=== PATIENT | male | born 1950 | race Caucasian/White ===

== ENCOUNTER 2024-06-06 06:02 | Day surgery (SDC) | payer MEDICARE, SELFPAY ==
[2024-06-06] VITALS (18 sets, daily range): BP systolic 112–164; BP diastolic 69–99; BMI 28.4
[2024-06-06 06:53] LABS: Hematocrit 39.8 % (39.0-52.0); Hemoglobin 14.1 g/dL (13.0-18.0); Mean Corp Hgb Conc. 35.4 g/dL (33.0-37.0); Mean Corpuscular Hgb 33.3 pg (27.0-31.0); Mean Corpuscular Volume 93.9 fL (80.0-94.0); Mean Platelet Volume 9.2 fL (7.4-10.4); Platelet Count 271 10^3/uL (130-400); Red Blood Cell Count 4.24 10^6/uL (4.70-6.10); Red Cell Dist. Width 13.2 % (11.5-14.5); White Blood Cell Count 5.6 10^3/uL (4.8-10.8)
[2024-06-06 06:58] LABS: Glucose - Point of Care 182 mg/dl (70-99)
[2024-06-06 07:09] LABS: ALT (SGPT) < 10 U/L (0-50); AST (SGOT) 23 U/L (17-59); Albumin 3.9 g/dl (3.5-5.0); Alkaline Phosphatase 100 U/L (38-126); Blood Urea Nitrogen 13 mg/dl (9-20); Calcium 9.9 mg/dl (8.4-10.2); Carbon Dioxide 28 mmol/L (22-30); Chloride 107 mmol/L (98-107); Estimated Creatinine Clearance 93 ml/min; Glucose 176 mg/dl (70-99); Potassium 4.8 mmol/L (3.5-5.1); Sodium 141 mmol/L (135-145); Total Bilirubin 0.6 mg/dl (0.2-1.3); Total Protein 6.3 g/dl (6.3-8.2); eGFR > 60.00
[2024-06-06] MEDS: LOW STRENGTH ASPIRIN 324 MG PO (07:23)
[2024-06-06] MEDS: PLAVIX 75 MG PO (07:23)
--- NOTE | 2024-06-06 08:54 | CONSULT.STRU ---
Consultation
-
Date/Time Consultation Requested: 07/07/2024
Date/Time Consultation Performed: 07/07/2024
Requesting Provider: Thai Cohn MD
Performing Provider: ABRAN King
Reason for Consultation: /TAVR
Patient History
Physicians
Family Physician: Shital Rogers DO
Outpatient Silica Spray Mixer: Reddy Lopes MD
Primary Silica Spray Mixer: Reddy Lopes MD
History of Present Illness
Mr. Donis is a pleasant 74 yom that has a complex past medical history significant for , Diabetes, CVA, HTN, SDH, PAD, Parkinson disease, hyperlipidemia, and COPD. He resides at [facility] in [place] and uses a walker for ambulation.
His sister Klarissa is his primary point of contact Mr. Donis was scheduled for a rhizotomy and needed cardiac clearance from his acute care clinical nurse specialist. Due to his associated with worsened symptoms, he did not receive cardiac clearance and was referred
for a cardiac catheterization in preparation for possible TAVR. His echocardiogram from 05/11/2024 is notable for EF 60-65%, AV P/M 77/49, JULES 0.84, DI 0.28. pk Tutu. 4.38, Severe MAC, mild MS (MG 4), trivial TR. His cardiac catheterization from today
(06/06) demonstrated no obstructive CAD. From a symptomatology standpoint, he describes an increase in ARCE and LE edema. Discussed the pathophysiology and treatment options of including SAVR and TAVR. Explained the evaluation process comprising of
repeat lab work, CT scan, CT surgical consult, dental clearance, and a heart team discussion. TAVR booklet, prescriptions, appointments, and contact information given to patient and his sister Klarissa. Allowed for and answered questions at bedside.
Past Medical History
Past Medical History: COPD, CVA/TIA, GERD, HTN, Hypothyroidism, NIDDM, Psychiatric (bipolar), Valvular Disease (aortic stenosis, mitral stenosis, mac) and Other (TBH, SDH, PAD, neuropathy, Parkinson disease, aorto-iliac atherosclerosis,
claudication, sleep apnea, SIRS, anemia, former tobacco abuse)
Past Surgical History
Past Surgical History: Cholecystectomy, Orthopedic (knee and shoulder surgery) and Other (craniotomy, cataract)
Dental History
edentulous-- Will not need dental clearance.
Family History
Father: Cause of (heart disease)
Social History
Alcohol: None
Drug: None
Tobacco: Former Smoker
Personal: Single
Living: Assisted Living
Allergies
Allergy/AdvReac Type Severity Reaction Status Date / Time
dulaglutide Allergy Unknown Verified 06/06/24 07:02
haloperidol [From Haldol] Allergy Unknown Verified 06/06/24 07:02
metformin Allergy Unknown Verified 06/06/24 07:02
tiotropium Allergy Unknown Verified 06/06/24 07:02
[From Spiriva with
HandiHaler]
Home Medications
�Medication �Instructions �Recorded �Confirmed �Type
Apap 325 mg PO Q6H PRN pain 06/06/24 06/06/24 History
Milk of Magnesia 30 ml PO DAILY PRN constipation 06/06/24 06/06/24 History
albuterol sulfate 2.5 mg/3 mL 2.5 mg inhalation Q6H PRN sob 06/06/24 06/06/24 History
(0.083 %) solution for nebulization
arformoterol 15 mcg/2 mL solution 2 ml inhalation BID PRN sob 06/06/24 06/06/24 History
for nebulization
artificial tears solution eye drops 1 drp ophthalmic (eye) Q4H PRN dry 06/06/24 06/06/24 History
eyes
atorvastatin 40 mg tablet 40 mg PO QPM 06/06/24 06/06/24 History
benzonatate 100 mg capsule 100 mg PO TID PRN cough 06/06/24 06/06/24 History
blood-glucose sensor (Dexcom G7 06/06/24 06/06/24 History
Sensor device)
budesonide 0.5 mg/2 mL suspension 0.5 mg inhalation BID 06/06/24 06/06/24 History
for nebulization
carbidopa 25 mg-levodopa 100 mg 3 tab PO TID 06/06/24 06/06/24 History
tablet
carbidopa ER 50 mg-levodopa 200 mg 2 tab PO HS 06/06/24 06/06/24 History
tablet,extended release
cholecalciferol (vitamin D3) 10 10 mcg PO DAILY 06/06/24 06/06/24 History
mcg (400 unit) capsule (Vitamin D3)
clopidogrel 75 mg tablet 75 mg PO DAILY 06/06/24 06/06/24 History
insulin lispro 100 unit/mL 5 unit SC DAILY 06/06/24 06/06/24 History
subcutaneous pen
insulin lispro 100 unit/mL 6 unit SC DAILY 06/06/24 06/06/24 History
subcutaneous pen
lidocaine HCl 2 % mucosal solution 1 applic mucous membrane QID PRN 06/06/24 06/06/24 History
(Lidocaine Viscous) penis pain
magnesium oxide 400 mg (241.3 mg 400 mg PO BID 06/06/24 06/06/24 History
magnesium) tablet
meoslksn-vxa-xsxlo acid 0.4 1 tab PO DAILY 06/06/24 06/06/24 History
mg-lycopene 300 mcg-lutein 250 mcg
tablet (Cerovite Senior)
pantoprazole 40 mg tablet,delayed 40 mg PO DAILY 06/06/24 06/06/24 History
release
primidone 250 mg tablet 500 mg PO HS 06/06/24 06/06/24 History
tizanidine 2 mg tablet 6 mg PO HS 06/06/24 06/06/24 History
tramadol 50 mg tablet 50 mg PO DAILY PRN pain 06/06/24 06/06/24 History
STS%
STS %: 1.29
Review of Systems
-
History Source: Patient and Family (sister Klarissa)
General: Reports Fatigue
HEENT: Reports No Symptoms
Respiratory: Reports ARCE
Cardiac: Reports No Symptoms
Abdomen/GI: Reports No Symptoms
: Reports No Symptoms
Musculoskeletal: Reports Joint Pain and Edema
Skin: Reports No Symptoms
Neurological: Reports CVA, TIA and Dizzy
Vascular: Reports Claudication
Physical Exam
Vital Signs
Pulse 65 06/06/24 07:30
Resp Rate 18 06/06/24 06:51
Blood pressure 112/75 06/06/24 06:51
Blood pressure extremity used: Left upper arm 06/06/24 06:51
Position: Sitting 06/06/24 06:51
MAP (cuff-Brannon Monitor) 87 06/06/24 06:35
SaO2 98 06/06/24 07:30
Oxygen Mode of Delivery Room air 06/06/24 06:51
Can the patient verbally communicate their pain? Yes 06/06/24 06:51
Pain scale ratin 06/06/24 06:51
Actual Weight 87.08 kg 06/06/24 06:50
Body Mass Index (BMI) 28.4 06/06/24 06:50
Labs
06/06/24 06:43
06/06/24 06:43
Diagnostic Studies
ECHOCARIOGRAM 05/06/2024
SUMMARY
1. Left ventricular ejection fraction, by visual estimation, is 60 to 65%.
2. Concentric remodeling of the left ventricle.
3. Indeterminate LV diastolic function.
4. The left atrium is normal in by volume index 22.1 mL/m2.
5. Normal right ventricular size and systolic function.
6. Normal right atrium by area 12.9 cm2.
7. Aortic valve is tricuspid and calcified. Severe aortic valve stenosis.
8. AoV velocity of 4.38 m/s; Peak aortic valve gradient = 76.9 mmHg; Mean gradient = 48.5 mmHg; AoV Area by continuity equation = 0.84 cm2; AoV Dimensionless Index = 0.28.
9. There is moderate thickening of the anterior and posterior leaflets of the mitral valve with fixed Posterior leaflet. Severe mitral annular calcification. Turbulent Inflow consistent with calcific Mitral valve. Mild mitral stenosis Mean Gradient
4mmHg
10. Inadequate amount of tricuspid regurgitation to estimate the pulmonary systolic pressure.
11. Aortic root and ascending aorta appear normal, with no evidence of dilatation or obstruction.
12. Compared to prior study 06/2023, gradients are slightly worse.
13. Study done in Normal sinus rhythm.
14. Mild mitral valve stenosis with mean gradient of 4.8 mmHg
CARDIAC CATHETERIZATION 06/06/2024
ASSESSMENT:
1: Single-vessel nonobstructive coronary artery disease.
2: Severe aortic valvular stenosis.
3: Mildly elevated pulmonary pressures.
CONCLUSIONS and RECOMMENDATIONS:
1: Proceed with TAVR evaluation.
2: Medical therapy for nonobstructive coronary artery disease.
Procedure Type:�Isolated AVR
Perioperative Outcome Estimate %
Operative Mortality 1.29%
Morbidity & Mortality 6.47%
Stroke 1.43%
Renal Failure 0.691%
Reoperation 3.14%
Prolonged Ventilation 2.02%
Deep Sternal Wound Infection 0.042%
Long Hospital Stay (>14 days) 2.71%
Short Hospital Stay (<6 days)* 57.5%
Exam
General: Well Developed, Well Nourished and Comfortable
HEENT: Normocephalic
Neck: Trachea Midline
Respiratory: Wheezes (Scattered expiratory wheezes)
Cardiac: Regular Rhythm and Murmur (IV/ MELANI)
GI: Soft, Non Tender and Non Distended
Rectal: Deferred by Provider
Skin: Warm and Dry
Neuro: Awake, Alert, Oriented and AO x 3
Extremities: Lower Level Edema
Psych: Calm
Assessment / Plan
-
Aortic stenosis
Continue with TAVR evaluation
Trend creatinine after contrast administration (Rx given)
TAVR CT scan (06/19)
CT surgical consult (MPT 07/03)
Frailty testing and KCCQ12 at consult
Dental clearance
Continue Plavix
Heart team discussion
Data Reviewed
-
EKG: Tracing Personally Visualized and interpreted (NSR with RBBB)
Heater Planer Operator: Report Reviewed by me and Discussed with Physician
Echo: Report Reviewed by me and Discussed with Physician
Labs: Labs Reviewed by me
Old Records: Reviewed
Total Time Spent with Patient (in minutes): 45
--- NOTE | 2024-06-06 09:09 | ITS.CL.CATH ---
Bonding Machine Operator - Catheterization
Cardiac Catheterization
Procedure Report:
RIGHT AND LEFT HEART CATHETERIZATION
Date of Procedure: June 06, 2024
Primary Care Physician: Dr. Shital Rogers
Primary Phlebotomy Tech: Dr. Reddy Lopes
Procedures performed:
1: Coronary angiography
2: Left ventricular hemodynamic assessment
3: Right heart catheterization
INDICATION: The patient is a 74-year-old male with a complex past medical history including prior heavy smoking, prior stroke, prior subdural hematoma status postcraniotomy, insulin-dependent diabetes mellitus, Parkinson's disease, and chronic back
pain who presents with new increasing lower extremity edema and progressive severe aortic valvular stenosis by echocardiography. LV systolic function was normal with a mean aortic valve gradient of 49 mmHg by recent echo performed on 05/11/2024
ACCESS: The patient was prepped and draped in usual sterile fashion. A 6 Mauritian sheath was placed in the right radial artery using the Seldinger over the wire technique. A 6 Mauritian sheath was then placed in the right common femoral vein using the
same technique.
HEMODYNAMIC FINDINGS (mmHg):
RA(a,v,m): 12, 10, 9
RV(s/d,EDP): 37/6, 13
PA(s/d/m): 38/22, 28
PCWP(a,v,m): 25, 22, 19
LV(s/d,EDP): 205/14, 31
Ao(s/d,m): 161/84, 114
Oxygen Saturations (mg/dl):
PA: 67% on room air
LV: 94% on room air
Cardiac Output/Index (l/min / l/min/m2):
Estimated Yuri Method: 4.8 / 2.4
VALVE HEMODYNAMICS:
Aortic Valve
peak to peak gradient (mmHg): 44
mean gradient (mmHg): 47
valve area (cm2): 0.7
ANGIOGRAPHIC FINDINGS:
Single-plane Left Ventriculography performed in the GILMORE projection:
Coronary Angiography:
Dominance: Right
Left Main: Widely patent, very mild distal tapering.
Left Anterior Descending: The left anterior descending artery is a medium caliber vessel that gives rise to 1 major bifurcating diagonal branch. These vessels have very mild luminal irregularities with no focal obstructive disease.
Left Circumflex: The left circumflex is a medium caliber nondominant system that gives rise to 3 major obtuse marginal branches. The circumflex ostium has a smooth 40 to 50% stenosis. The remainder of the distal vessels have only nonobstructive
mild luminal irregularities with normal flow.
Right Coronary: The right coronary artery is a large-caliber dominant system that gives rise to a medium caliber posterior descending artery and posterior left ventricular branch system. These vessels have mild luminal irregularities with no focal
obstructive disease.
Fluoroscopy Time (min): 6.5
Radiation Dose (mGy): 360
DAP (Gy.cm2): 26
Closure device: None. A TR band was placed at the right wrist. Hemostasis was achieved with manual pressure alone in the right groin.
Complications: None
ASSESSMENT:
1: Single-vessel nonobstructive coronary artery disease.
2: Severe aortic valvular stenosis.
3: Mildly elevated pulmonary pressures.
CONCLUSIONS and RECOMMENDATIONS:
1: Proceed with TAVR evaluation.
2: Medical therapy for nonobstructive coronary artery disease.
Thai Cohn M.D.
Copy to: Dr. Shital Rogers
[2024-06-06 09:24] LABS: Glucose - Point of Care 148 mg/dl (70-99)
[2024-06-06] MEDS: SINEMET 25-100 3 TABLET PO (09:31)
[2024-06-06] MEDS: DEPAKOTE (12 HR RELEASE) 1000 MG PO (10:11)
== END 2024-06-06 13:20 | disposition home or self-care (01) ==
LOC: CATH 06:02
PROVIDERS: ATTENDING PHYSICIAN Internal Medicine Interventional Cardiology; FAMILY PHYSICIAN Family Medicine; OTHER PHYSICIAN Internal Medicine Cardiovascular Disease
DX: I25.10 Atherosclerotic heart disease of native coronary artery without angina pectoris (principal); R60.0 Localized edema; G20.A1 Parkinson's disease without dyskinesia, without mention of fluctuations; I08.3 Combined rheumatic disorders of mitral, aortic and tricuspid valves; G89.29 Other chronic pain; Z79.4 Long term (current) use of insulin; E78.5 Hyperlipidemia, unspecified; E11.51 Type 2 diabetes mellitus with diabetic peripheral angiopathy without gangrene; J44.9 Chronic obstructive pulmonary disease, unspecified; Z90.49 Acquired absence of other specified parts of digestive tract; R65.10 Systemic inflammatory response syndrome (SIRS) of non-infectious origin without acute organ dysfunction; D64.9 Anemia, unspecified; Z88.8 Allergy status to other drugs, medicaments and biological substances; K21.9 Gastro-esophageal reflux disease without esophagitis; I10 Essential (primary) hypertension; Z86.73 Personal history of transient ischemic attack (TIA), and cerebral infarction without residual deficits; Z87.891 Personal history of nicotine dependence; Z98.890 Other specified postprocedural states
CPT/HCPCS: 80053; 82962; 85027; 93460; C1894; Q9967

== ENCOUNTER → 2024-06-19 09:40 | Outpatient (REF) | payer MEDICARE, SELFPAY | LOC: RAD 09:40 | PROVIDERS: ATTENDING PHYSICIAN Nurse Practitioner Acute Care | DX: I35.0 Nonrheumatic aortic (valve) stenosis (principal) | CPT/HCPCS: 74174; 75572; Q9967 ==

== ENCOUNTER 2024-08-09 09:48 | Day surgery (SDC) | payer MEDICARE, SELFPAY ==
[2024-07-31 12:30] VITALS: BMI 29.0
[2024-07-31 13:46] LABS: Hematocrit 38.8 % (39.0-52.0); Hemoglobin 13.6 g/dL (13.0-18.0); Mean Corp Hgb Conc. 35.1 g/dL (33.0-37.0); Mean Corpuscular Hgb 32.9 pg (27.0-31.0); Mean Corpuscular Volume 93.7 fL (80.0-94.0); Mean Platelet Volume 9.6 fL (7.4-10.4); Platelet Count 157 10^3/uL (130-400); Red Blood Cell Count 4.14 10^6/uL (4.70-6.10); Red Cell Dist. Width 13.1 % (11.5-14.5); White Blood Cell Count 4.5 10^3/uL (4.8-10.8)
[2024-07-31 13:49] LABS: INR 1.07; PT 14.4 Sec (11.4-14.6)
[2024-07-31 13:50] LABS: APTT 33.9 Sec (23.4-35.0)
[2024-07-31 13:58] LABS: NT-proBNP 163 pg/ml
[2024-07-31 14:13] LABS: Glycohemoglobin (HgbA1c) 6.6 % (4.0-5.6)
[2024-07-31 14:16] LABS: Urine Albumin Negative (Neg - Trace); Urine Bilirubin Negative (Negative); Urine Character Clear (Clear); Urine Color Yellow; Urine Glucose Negative (Negative); Urine Ketone 1+ (Negative); Urine Leukocyte Negative (Negative); Urine Nitrite Negative (Negative); Urine Occult Blood Negative (Negative); Urine Urobilinogen Negative (Neg - 1+)
[2024-07-31 14:25] LABS: AST (SGOT) 17 U/L (17-59); Albumin 4.4 g/dl (3.5-5.0); Alkaline Phosphatase 53 U/L (38-126); Blood Urea Nitrogen 10 mg/dl (9-20); Calcium 9.6 mg/dl (8.4-10.2); Carbon Dioxide 27 mmol/L (22-30); Chloride 104 mmol/L (98-107); Direct Bilirubin 0.3 mg/dl (0.0-0.4); Estimated Creatinine Clearance 74 ml/min; Glucose 97 mg/dl (70-99); Potassium 4.3 mmol/L (3.5-5.1); Sodium 136 mmol/L (135-145); Total Bilirubin 0.6 mg/dl (0.2-1.3); Total Protein 6.6 g/dl (6.3-8.2); eGFR > 60.00
[2024-07-31 14:35] LABS: ALT (SGPT) < 10 U/L (0-50)
--- NOTE | 2024-07-31 14:56 | CM ---
Met with Mr. Donis and his sister in [facility]. He states prior to admission he resides alone in an apartment at [facility]. His apartment is on the first floor. He states he has been there for almost three years. He
states prior to admission he ambulates with a rollator. He has a rollator, rolling walker, wheelchair and Nebulizer at home. He has a prescription plan and the facility get his medications. He has been at [facility] and [facility] in [place]
in the past. The discharge plan is to return to [facility] with a home visit by the Transitional Care Nurse when medically stable.
We reviewed pre-op and post-op routines We reviewed the shower instructions. He has the soap, written instructions and the TAVR Educational Booklet. We also reviewed the restrictions including lifting and driving restrictions. We discussed a home
visit by the Transitional Care Nurse. He is agreeable to a home visit. The plan is for TAVR on July.
[2024-07-31 15:32] LABS: % Basophils 0.4 % (0-2); % Eosinophils 1.8 % (0-6); % Immature Granulocytes 0.4 % (0-0.5); % Lymphocytes 51.8 % (20.5-51.1); % Neutrophils 34.6 % (42.2-75.2); Absolute Eosinophils 0.1 10^3/uL (0-0.7); Absolute Lymphocytes 2.4 10^3/uL (1.2-3.4); Absolute Monocytes 0.5 10^3/uL (0.1-0.6); Absolute Neutrophils 1.6 10^3/uL (1.4-6.5); Nucleated Red Blood Cells % 0 % (-)
--- NOTE | 2024-08-09 09:50 | RR ---
A Rapid Response was called on this patient, please see Rapid Response form.
Patient arrived for TAVR procedure. Brought up to pre procedure area in wheelchair. Patient lethargic and states he does not feel well and this is not his normal self. Blood sugar checked. IV started and put on tele. Rapid called with stroke
code. Sister accompanied patient. Team arrived to bedside and agreed to CT scan. Please see further documentation.
[2024-08-09 10:09] LABS: Glucose - Point of Care 99 mg/dl (70-99)
--- NOTE | 2024-08-09 12:35 | CM ---
Chart reviewed. Patient is in the OR. Patient lives alone in an apartment at [facility]. His apartment is on the first floor. He states he has been there for almost three years. He states prior to admission he
ambulates with a rollator. He has a rollator, rolling walker, wheelchair and Nebulizer at home. He has a prescription plan and the facility gets his medications. He has been at [facility] and [facility] in [place] in the past. The discharge
plan is to return to [facility] with a home visit by the [place] Transitional Care Nurse when medically stable.
== END 2024-08-09 11:00 | disposition home or self-care (01) ==
LOC: CATH 09:48
PROVIDERS: ATTENDING PHYSICIAN Thoracic Surgery (Cardiothoracic Vascular Surgery); FAMILY PHYSICIAN Family Medicine
DX: I35.0 Nonrheumatic aortic (valve) stenosis (principal); R29.810 Facial weakness; R53.83 Other fatigue; R41.0 Disorientation, unspecified; Z53.8 Procedure and treatment not carried out for other reasons; I25.10 Atherosclerotic heart disease of native coronary artery without angina pectoris; E11.51 Type 2 diabetes mellitus with diabetic peripheral angiopathy without gangrene; I10 Essential (primary) hypertension; G20.A1 Parkinson's disease without dyskinesia, without mention of fluctuations; J44.9 Chronic obstructive pulmonary disease, unspecified; E78.5 Hyperlipidemia, unspecified; K21.9 Gastro-esophageal reflux disease without esophagitis
CPT/HCPCS: 33361; 36415; 70450; 71046; 80053; 81003; 82248; 82962; 83036; 83880; 85025; 85610; 85730; 86850; 86900; 86901; 87070; 93005

== ENCOUNTER 2024-08-10 08:51 | Inpatient (IN) | payer MEDICARE, SELFPAY ==
[2024-08-09] VITALS (12 sets, daily range): BP systolic 141–191; BP diastolic 64–124; BMI 25.9
[2024-08-09 10:40] LABS: Venous Blood Gas B.E. 4.5 mmol/L (-4 to +4); Venous Blood Gas HCO3 29.8 mmol/L (22-27); Venous Blood Gas O2 Sat % 99.6 %; Venous Blood Gas pCO2 46 mmHg (35-48); Venous Blood Gas pH 7.42 (7.32-7.43); Venous Blood Gas pO2 153 mmHg (30-50)
[2024-08-09 10:42] LABS: % Basophils 0.5 % (0-2); % Eosinophils 1.3 % (0-6); % Immature Granulocytes 0.5 % (0-0.5); % Lymphocytes 42.3 % (20.5-51.1); % Monocytes 12.6 % (1.7-9.3); % Neutrophils 42.8 % (42.2-75.2); Absolute Eosinophils 0.1 10^3/uL (0-0.7); Absolute Lymphocytes 1.7 10^3/uL (1.2-3.4); Absolute Monocytes 0.5 10^3/uL (0.1-0.6); Absolute Neutrophils 1.7 10^3/uL (1.4-6.5); Hematocrit 38.7 % (39.0-52.0); Hemoglobin 13.5 g/dL (13.0-18.0); Mean Corp Hgb Conc. 34.9 g/dL (33.0-37.0); Mean Corpuscular Hgb 33.1 pg (27.0-31.0); Mean Corpuscular Volume 94.9 fL (80.0-94.0); Mean Platelet Volume 9.4 fL (7.4-10.4); Nucleated Red Blood Cells % 0 % (-); Platelet Count 194 10^3/uL (130-400); Red Blood Cell Count 4.08 10^6/uL (4.70-6.10); Red Cell Dist. Width 13.4 % (11.5-14.5); White Blood Cell Count 3.9 10^3/uL (4.8-10.8)
--- NOTE | 2024-08-09 10:54 | ED.CVA ---
History of Present Illness
General
Chief Complaint: CVA/TIA Symptoms
Time Seen by Provider: 08/09/24 10:24
Onset of Stroke Symptoms
Onset of symptoms known: No
Time pt last seen normal is known: No
History of Present Illness
History of Present Illness:
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 Patient was picked
up by his sister around 8 AM this morning for outpatient TAVR procedure. Sister had noted that patient seemed more out of it, however noted that he did not sleep very well last night so she thought that that was the reason. When patient arrived to
[facility] for TAVR procedure, noted to be somnolent. For this reason a stroke alert was called and neurology to bedside. Patient went to CT scan and subsequently brought to the ER. Patient on arrival limited historian, following minimal commands.
No report of any fall or trauma, unknown. Patient is on Plavix, taken this morning. No additional history obtained at this time
Phy Exam
Physical Exam
Physical Exam:
General: No acute distress, somnolent
HEENT: protecting airway
Neck: appears supple
CV: Normal heart rate, regular rhythm
Resp: No accessory muscle use, no increased work of breathing, lungs clear to auscultation bilaterally
Abd: Soft and non-distended, no tenderness to palpation
Extremities: No deformities, no swelling
Neuro: Somnolent but arousable to stimuli. Pupils equal and reactive. Moving all extremities equally, however global weakness. Slurring of speech, however known TBI in the past. Able to follow simple commands
: deferred
Rectal: deferred
Psych: Normal affect
Skin: Intact
Scores
NIH Stroke Score
Level of Consciousness: 0 - Alert
LOC Questions: 2-Neither correct
LOC Commands: 0-Performs both correctly
Best Horizontal Gaze: 0-Normal
Visual Finney: 0=Normal, no visual loss
Facial Palsy: 1=Minor paralysis
Motor - Right Arm: 0=No drift 10 seconds
Motor - Left Arm: 0=No drift 10 seconds
Motor - Right Le-Drift < 5 seconds
Motor - Left Le-Drift < 5 seconds
Limb Ataxia: 0-Absent
Sensation: 0-Normal
Best Language: 0-No aphasia
Dysarthria: 1-Mild slurring
Extinction and Inattention: 0-No abnormality
NIH Total Score:: 6
Course
Orders/Labs/Results
Orders:
Orders
08/09/24
CT Head & Neck Angio W/wo IV Routine
Comment: ORDER RE-ENTERED UNDER CURRENT ACCOUNT KORY HUERTA
Reason For Exam: STENOSIS
08/09/24 Lunch
NPO
Allow oral meds: No
Allow clear liquids: No
08/09/24 10:25
Electrocardiogram (*1) Urgent
Reason for Study: TIA/Stroke
08/09/24 10:26
EKG- Treatment ONCE
08/09/24 10:33
Basic Metabolic Panel Urgent
Complete Blood Count/With Diff Urgent
Troponin I Urgent
08/09/24 10:34
Venous Blood Gas Urgent
%Oxygen/Room Air: 98
CR Chest Portable - 1 View Urgent
Comment:
Reason For Exam: AMS
Reason Study Needs to be Portable: Patient Unstable
08/09/24 10:38
Depakane Urgent
Lactic Acid Q4H
Comment: CANCEL 2nd LACTIC ACID IF 1st LACTIC ACID IS LESS THAN 2
Urinalysis Reflex To Culture Urgent
Date Specimen was Collected: 08/09/24
Time Specimen was Collected: 10:36
Urine Microscopic Reflex Cult Urgent
Blood Culture Q30M
[place] Source: Blood/Venous
Specimen Description:
Blood Culture Q30M
CORINA Source: Blood/Venous
Specimen Description:
08/09/24 11:50
DIETARY IP CONSULT Routine
Reason for Consult: Possible Aspiration on CXR, Parkinsons, TBI
Abnormal Lab Results
08/09/24 08/09/24 08/09/24
10:33 10:34 10:38
WBC 3.9 L 10^3/uL
(4.8-10.8)
RBC 4.08 L 10^6/uL
(4.70-6.10)
Hct 38.7 L %
(39.0-52.0)
MCV 94.9 H fL
(80.0-94.0)
MCH 33.1 H pg
(27.0-31.0)
Monocytes % 12.6 H %
(1.7-9.3)
VBG pO2 153 H mmHg
(30-50)
VBG HCO3 29.8 H mmol/L
(22-27)
Chloride 109 H mmol/L
(98-107)
Glucose 103 H mg/dl
(70-99)
Urine Ketones 2+ A
(Negative)
Urine Albumin (Reflex) 1+ A
(Neg - Trace)
08/09/24 10:33
08/09/24 10:33
Vital Signs
Initial and Last Documented VS:
Initial Vital Signs
Temp Pulse Resp BP Pulse Ox
96.5 F L 61 15 171/64 98
08/09/24 10:39 08/09/24 10:39 08/09/24 10:39 08/09/24 10:39 08/09/24 10:39
Last Documented Vital Signs
Temp Pulse Resp BP Pulse Ox
96.5 F L 61 15 171/64 98
08/09/24 10:39 08/09/24 10:39 08/09/24 10:39 08/09/24 10:39 08/09/24 10:39
MDM/Problems Addressed
MDM/Problems Addressed:
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 Vital signs on arrival significant for mild
hypertension.
On exam, patient is in no acute distress, however is somnolent. He is arousable to stimuli. Patient was brought directly from the [facility] prior to TAVR procedure given his somnolence. Patient had CT imaging performed prior to my evaluation in
keeping with a stroke alert. Neurology at bedside. CT with questionable subdural hematoma, chronic versus acute. In discussion with both neurosurgery and radiology, suspected to be chronic. Patient with history of seizure disorder, so CVA versus
seizure is a consideration. Patient is not a thrombectomy or a TNK candidate, unclear last normal. Sister arrived to bedside, notes that he has been 'slower 'than usual in the past 4 days. He has also been more disinhibited with pain, known
history of chronic back pain. He saw his PCP yesterday for this. Plan for EKG, CTA, laboratory analysis. Patient with slightly low temperature. Will also add blood cultures, lactic acid
12:20 -Depakote level in appropriate range. Labs relatively unremarkable. Normal lactic acid, no leukocytosis. Chest x-ray shows possible aspiration or bronchopneumonia. Patient afebrile. Holding antibiotics at this time. Pending CT angio.
Plan for admission for continued monitoring as well as EEG
*EKG
Interpreted by ED Provider?: Yes
EKG Intrepretation Date: 08/09/24
EKG Intrepretation Time: 11:12
Interpretation: normal
Comparison EKG: no changes (07/31/24)
Heart Rate: 60
Rate: normal
Rhythm: sinus
Kimberly: normal axis
Interval: normal interval
QRS Pattern: right bundle branch block
Ischemia: no ischemia
*Critical Care Note
Total Time (30-74mins, 75-104mins- exclusive of procedures): Not Applicable
ED Attending Note
-
Portions of this chart may have been created with voice recognition software.� Occasional wrong word or��sound alike� substitutions may have occurred due to the inherent limitations of voice recognition software.
Discharge Plan
Departure
Prescriptions:
No Action
atorvastatin 40 mg Tablet
40 mg PO QPM
carbidopa-levodopa 50-200 mg Tablet Extended Release
2 tab PO HS
clopidogrel 75 mg Tablet
75 mg PO DAILY
magnesium oxide 400 mg (241.3 mg magnesium) Tablet
400 mg PO BID
magnesium hydroxide [Milk of Magnesia] 400 mg/5 mL Suspension
30 ml PO DAILY PRN (Reason: constipation) Qty: 0
Rx Instructions:
IF NO BM AFTER 3 DAYS
pantoprazole 40 mg Tablet,Delayed Release (Dr/Ec)
40 mg PO DAILY
budesonide 0.5 mg/2 mL Suspension For Nebulization
0.5 mg INHALATION BID
carbidopa-levodopa 25-100 mg Tablet
3 tab PO TID
insulin lispro 100 unit/mL Insulin Pen
0 unit SC .WITH MEALS
Rx Instructions:
with MEALS
Cerovite Senior 0.4 mg-300 mcg- 250 mcg Tablet
1 tab PO DAILY
tizanidine 2 mg Tablet
2 mg PO BID
tramadol 50 mg Tablet
50 mg PO BID PRN (Reason: PAIN)
primidone 250 mg Tablet
500 mg PO HS
furosemide 40 mg Tablet
40 mg PO DAILY
divalproex 500 mg Tablet,Delayed Release (Dr/Ec)
1,000 mg PO TID
levothyroxine 75 mcg Tablet
75 mcg PO DAILY
formoterol fumarate 20 mcg/2 mL Solution For Nebulization
2 ml INHALATION BID
acetaminophen 325 mg Tablet
650 mg PO Q4H PRN (Reason: pain/fever)
polyethylene glycol 3350 17 gram Powder In Packet
17 g PO DAILY PRN (Reason: constipation)
amiodarone 200 mg Tablet
200 mg PO DAILY
dextromethorphan-guaifenesin [Robitussin-DM] 10-100 mg/5 mL Syrup
10 ml PO Q4H PRN (Reason: prn)
bisacodyl [Dulcolax (bisacodyl)] 10 mg Suppository
10 mg MT DAILY PRN (Reason: constipation)
Fleet Enema 19-7 gram/118 mL Enema
118 ml MT PRN PRN (Reason: constipation)
Rx Instructions:
IF BISACODYL INEFFECTIVE
fluticasone propionate 50 mcg/actuation [place],Suspension
1 spray INTRANASAL HS
Yupelri 175 mcg/3 mL Solution For Nebulization
175 mcg INHALATION DAILY
cholecalciferol (vitamin D3) [Vitamin D3] 10 mcg (400 unit) Tablet
10 mcg PO DAILY
insulin glargine [Lantus Solostar U-100 Insulin] 100 unit/mL (3 mL) Insulin Pen
14 unit SC DAILY
Rx Instructions:
WITH BREAKFAST
docusate sodium 100 mg Capsule
100 mg PO BID PRN (Reason: CONSTIPATION)
Referrals:
Shital Rogers DO [Family Provider, Family Practice]
Interventions
Interventions:
*Risk Screen - Suicide Last Done: 08/09/24 10:39
*General Assessment Last Done: 08/09/24 10:39
*Neglect/Abuse Screening Last Done: 08/09/24 10:39
*ED- Fall Risk Assessment Last Done: 08/09/24 10:39
*ED COVID-19 Vaccine History Last Done: 08/09/24 10:39
ED- Pulmonary Assessment Last Done: 08/09/24 11:00
ED- Neurological Assessment Last Done: 08/09/24 11:00
ED- Cardiac Assessment Last Done: 08/09/24 11:00
ED Swallowing Screen Last Done: 08/09/24 11:50
Discharge Date and Time
Print Language: ESTONIAN
[2024-08-09 11:02] LABS: Blood Urea Nitrogen 12 mg/dl (9-20); Calcium 9.5 mg/dl (8.4-10.2); Carbon Dioxide 27 mmol/L (22-30); Chloride 109 mmol/L (98-107); Glucose 103 mg/dl (70-99); Sodium 142 mmol/L (135-145); eGFR > 60.00
[2024-08-09 11:06] LABS: Urine Albumin 1+ (Neg - Trace); Urine Bilirubin Negative (Negative); Urine Character Clear (Clear); Urine Color Yellow; Urine Glucose Negative (Negative); Urine Ketone 2+ (Negative); Urine Leukocyte Negative (Negative); Urine Nitrite Negative (Negative); Urine Occult Blood Negative (Negative); Urine Urobilinogen Negative (Neg - 1+)
[2024-08-09 11:09] LABS: Troponin I < 0.012 ng/ml
[2024-08-09 11:14] LABS: Lactic Acid 1.3 mmol/L (0.7-2.0)
[2024-08-09 11:16] LABS: Urine Amorphous Seen; Urine Squamous Cell 0-2 /LPF (Few)
[2024-08-09 11:17] LABS: Urine Red Blood Cell 0-2 /HPF (0-2)
[2024-08-09 11:27] LABS: Depakane 113.8 ug/ml (50.0-120.0)
--- NOTE | 2024-08-09 13:04 | HPS.HSE ---
Family Physician
-
Family Physician: Shital Rogers
Chief Complaint
-
Change in Mental Status
History of Present Illness
Patient is a 74 y/o male with a complicated past medical history including prior subdural hematoma with traumatic brain injury, prior occipital stroke, peripheral arterial disease, severe aortic stenosis, unknown arrhythmia, diabetes mellitus, COPD,
Parkinson's Disease, Hypothyroidism, GERD and Anxiety / Depression who presents with change in mental status. Additional history is provided by patient's sister at the bedside. She has note patient seemed a little less interactive, and little more
lethargic over the past few days. She initially attributed this to increased back pain that he has been dealing with. Today she picked him up at his apartment for his scheduled TAVR procedure. He was able to use his rollator to get to her car,
but during the drive to the hospital he was less interactive and at one point the sister had to grab him to his head from hitting the dashboard. Upon arrival the hospital he needed to use a wheelchair. Rapid Response / Stroke Alert was called when
patient arrived in the [facility] and patient was brought to the emergency department. At this time patient is back to baseline.
Medical History
Past Medical History
Past Medical History: Reports Other
Additional Past Medical History:
Traumatic Brain Injury
Traumatic Right Frontoparietal Subdural Hematoma s/p Craniotomy and Embolization
Occipital Stroke
Seizure Disorder
PAD s/p Left Common Iliac and Left Common Femoral Artery Angioplasty
Hyperlipidemia
Diabetes Mellitus, Type II
Severe Aortic Stenosis
Unknown Arrhythmia
COPD
Obstructive Sleep Apnea
Parkinson's Disease
Hypothyroidism
Anxiety / Depression
GERD
Past Surgical History: Reports Other
Additional Past Surgical History:
Craniotomy
MCA Embolization
Cholecystectomy
Bilateral Shoulder Surgery
Social History
Tobacco: Former Smoker (>50 pack year history - Quit about 2 years ago)
Alcohol: None
Family History
Family History: Not pertinent
Allergies / Home Medications
Allergies reflects when Allergies were last updated in [facility].
Home Medications with original date entered in [facility]
Allergy/Medication List:
Allergies
Allergy/AdvReac Type Severity Reaction Status Date / Time
dulaglutide Allergy Unknown Verified 07/25/24 13:28
haloperidol (From Haldol) Allergy Unknown Verified 07/25/24 13:28
metformin Allergy Vomiting Verified 07/25/24 13:28
tiotropium (From Spiriva Allergy Coughing Verified 07/25/24 13:28
with [facility])
Home Medications
atorvastatin 40 mg tablet 40 mg PO QPM High Cholesterol 06/06/24
budesonide 0.5 mg/2 mL suspension for nebulization 0.5 mg inhalation BID COPD 06/06/24
carbidopa 25 mg-levodopa 100 mg tablet 3 tab PO TID with meals 06/06/24
carbidopa ER 50 mg-levodopa 200 mg tablet,extended release 2 tab PO HS PARKINSONS 06/06/24
clopidogrel 75 mg tablet 75 mg PO DAILY Blood Clot Prevention/Tx 06/06/24
divalproex 500 mg tablet,delayed release 1,000 mg PO TID Seizures 06/06/24
formoterol fumarate 20 mcg/2 mL solution for nebulization 2 ml inhalation BID COPD 06/06/24
furosemide 40 mg tablet 40 mg PO DAILY Fluid Retention/Swelling 06/06/24
insulin lispro 100 unit/mL subcutaneous pen 0 unit SC .WITH MEALS sliding scale 06/06/24
levothyroxine 75 mcg tablet 75 mcg PO DAILY Thyroid 06/06/24
magnesium hydroxide 400 mg/5 mL oral suspension (Milk of Magnesia) 30 ml PO DAILY PRN constipation ##0 06/06/24
magnesium oxide 400 mg (241.3 mg magnesium) tablet 400 mg PO BID 06/06/24
mdhwavcm-ryi-rbkqs acid 0.4 mg-lycopene 300 mcg-lutein 250 mcg tablet (Cerovite Senior) 1 tab PO DAILY Supplement 06/06/24
pantoprazole 40 mg tablet,delayed release 40 mg PO DAILY Gastrointestinal Issue 06/06/24
primidone 250 mg tablet 500 mg PO HS Seizures 06/06/24
tizanidine 2 mg tablet 2 mg PO BID Muscle Spasms 06/06/24
tramadol 50 mg tablet 50 mg PO BID PRN PAIN 06/06/24
acetaminophen 325 mg tablet 650 mg PO Q4H PRN pain/fever 07/27/24
amiodarone 200 mg tablet 200 mg PO DAILY Arrhythmia 07/27/24
bisacodyl 10 mg rectal suppository (Dulcolax (bisacodyl)) 10 mg IA DAILY PRN constipation 07/27/24
dextromethorphan-guaifenesin 10 mg-100 mg/5 mL oral syrup 10 ml PO Q4H PRN prn 07/27/24
fluticasone propionate 50 mcg/actuation nasal spray,suspension 1 spray intranasal HS Allergies 07/27/24
polyethylene glycol 3350 17 gram oral powder packet 17 g PO DAILY PRN constipation 07/27/24
revefenacin 175 mcg/3 mL solution for nebulization (Yupelri) 175 mcg inhalation DAILY COPD 07/27/24
sodium phosphates 19 gram-7 gram/118 mL enema (Fleet Enema) 118 ml IA PRN PRN constipation 07/27/24
cholecalciferol (vitamin D3) 10 mcg (400 unit) tablet (Vitamin D3) 10 mcg PO DAILY Supplement 08/09/24
docusate sodium 100 mg capsule 100 mg PO BID PRN CONSTIPATION 08/09/24
insulin glargine 100 unit/mL (3 mL) subcutaneous pen (Lantus Solostar U-100 Insulin) 14 unit SC DAILY Diabetes 08/09/24
Review of Systems
-
Unable to obtain full review of systems at this time due to: Acuity
History Source: Family (Sister)
Physical Exam
Vital Signs
Vital Signs
Temp Pulse Resp BP Pulse Ox
96.5 F L 61 15 171/64 98
08/09/24 10:39 08/09/24 10:39 08/09/24 10:39 08/09/24 10:39 08/09/24 10:39
Physical Exam
General: Comfortable and Conversant (Speech is slow but clear; Frequently joking with the nurse during my evaluation)
HEENT: Anicteric, Moist mucous membranes and Other (Large surgical scar from prior craniotomy)
Respiratory: Clear and Non Labored Respirations
Cardiac: S1/S2, Regular Rhythm and Murmur
GI: Soft and Non Tender
Musculoskeletal: No Clubbing, No Cyanosis and No Edema
Skin: Warm and Dry
Neuro: Awake, Alert and Other (Moves all four extremities with tremors notes which sister reports is baseline)
Psych: Calm
Laboratory Results
-
08/09/24 10:33
08/09/24 10:33
Laboratory Results
Lactic Acid Cancelled 08/09/24 14:45
Total Bilirubin Cancelled 08/09/24 10:33
AST Cancelled 08/09/24 10:33
ALT Cancelled 08/09/24 10:33
Alkaline Phosphatase Cancelled 08/09/24 10:33
Troponin I < 0.012 ng/ml 08/09/24 10:33
Data Reviewed
-
CT Scan: Report Reviewed by me
Lab Data: Labs Reviewed by me
Old Records: Reviewed
Impression/Plan
-
Change in Mental Status, possibly seizure vs symptoms related to chronic subdural vs hypertensive encephalopathy, low clinically suspicion for acute stroke
-Consult Neurology
-Check EEG
-Check Brain MRI
Hypothermia, possibly related aspiration pneumonia
-Patient made NPO upon arrival to ED
-Consult Speech Therapy
-Continue Unasyn
Uncontrolled Hypertension
-Check TSH
-Continue labetalol PRN
-Monitor blood pressure
Traumatic Brain Injury / Traumatic Right Frontoparietal Subdural Hematoma s/p Craniotomy and Embolization
-Consult PT/OT and Speech Therapy
Seizure Disorder
-Continue Depakote
-Continue Primidone
PAD s/p Left Common Iliac and Left Common Femoral Artery Angioplasty
Prior Ocular Stroke
-Continue Plavix
Hyperlipidemia
-Continue atorvastatin
Diabetes Mellitus, Type II
-Continue Lantus at decreased dose until able seen by speech / able to resume usual diet
-Monitor sugars and continue coverage insulin
Severe Aortic Stenosis
-Continue Lasix
-Monitor Daily Weights
Unknown Arrhythmia
-Sister notes episodes of tachycardia but details are not known
-Monitor on Telemetry
-Continue amiodarone
COPD no acute exacerbation
-Continue budesonide, formoterol
Parkinson's Disease
-Continue Sinemet
-Continue Primidone
Hypothyroidism
-Continue levothyroxine
DVT proph: SCDs
Code Status: Full Code
--- NOTE | 2024-08-09 13:44 | CON.NEURO4 ---
Addendum entered and electronically signed by Itz Kerr MD 08/09/24 15:07:
Studies reviewed.
I have personally examined the patient. I reviewed and agree with the VENDING MACHINE HOST/HOSTESS's Note.
My addenda:
Awake, alert able, interactive. No acute distress.
Speech intact.
Follows 1-step requests w/ difficulty. No tremor.
Extra-ocular movements intact.
Facial movements full and symmetric. Hearing intact to normal conversational volume.
Normal UE movements bilaterally.
Neck: full ROM.
Chest: no dyspnea
Heart: no JVD
Ext: (-) Clubbing, (-) Cyanosis, (-) Edema
IMPRESSIONS/RECOMMENDATIONS:
Abrupt onset of change in mental status in a patient with a prior history of traumatic brain injury, subdural hematoma, craniotomy and seizures
Ddx includes recurrent seizure, psychogenic seizure, toxic metabolic encephalopathy
Check EEG
Check valproic acid levels, primidone levels
Reviewed with neurosurgery and radiology regarding the patient's subdural hematoma present on the right side frontally and they concur that this most likely represents postoperative changes and not acute changes
As the patient has had progressive improvement in wakefulness, not evident that the patient will require additional therapies at this time
D/W patient
Will continue to follow patient.
Original Note:
Documented by User: Joann Marrero NP 08/09/24 14:20
Consultation - Neurology 4
-
CONSULTING PHYSICIAN: Itz Kerr MD
REFERRING PHYSICIAN: Cardiac Surgery/ABRAN King
DICTATED BY: ABRAN Agustin
DATE/TIME OF REQUEST: 08/09/24
DATE/TIME OF CONSULTATION: 08/09/24
Reason for Consultation: Stroke Alert
History of Present Illness:
This is a 74-year-old male with a PMH of fall with head trauma complicated by subdural hematoma, craniotomy, and seizures who has presented to the laboratory chief this morning for a scheduled TAVR. His sister notes that last night he reportedly only got
about 3 hours of sleep. She picked him up this morning around 0800 to bring him for TAVR today and noted that he was somewhat somnolent and not acting like himself. On arrival, patient was also noted by staff to be lethargic, confused, and not at
his baseline prompting a stroke alert to be called. CT head was obtained and is suggestive of a most likely chronic subdural hematoma, no acute findings. CTA head/neck was later obtained due to his history of stroke s/p thrombectomy (of which we do
not have medical records to clarify details). He is not a candidate for TNK/IAT due to unknown last known normal time and low suspicion for stroke due to lack of focal findings. Urgent EEG was obtained due to history of seizure disorder following
TBI (Valproic acid), and demonstrates diffuse slowing, no seizures. He took Plavix this morning along with his usual medications including carbidopa/levodopa. Patient is currently more alert and is answering questions appropriately, speech is
slurred but is back at his baseline. His sister notes that he has seemed 'slower' than usual the past 4 days. Chest xray demonstrates possible aspiration or bronchopneumonia. He reports feeling mildly dizzy but denies any headache, vision changes,
speech/swallowing difficulty, numbness, and weakness.
Past Medical History: SDH, seizure disorder, parkinson's disease, CVA s/p thrombectomy?, severe aortic valvular stenosis, NIDDM, hypothyroidism, GERD, COPD, PAD, sleep apnea, anemia
Surgical History: Right craniotomy, thrombectomy, cholecystectomy, b/l knee surgery, b/l shoulder surgery, cataract removal, angioplasty, ILR (now removed), lumbar rhizotomy, urolift, rectal abscess.
Family History: Father- stroke.
Social History: Former smoker. Denies alcohol and illicit drug use.
Allergies: Dulaglutide, haloperidol, metformin, tiotropium.
Home Medications: See below.
Review of Symptoms:
Patient denies any fever, headache, chest pain, shortness of breath, GI or symptoms.
�Per the HPI.�All systems are reviewed negative except above.
Physical Exam:
The patient is afebrile, abdomen is nondistended, breathing is unlabored, skin is warm and dry, no edema.
NIH Stroke Scale:
I performed the NIH stroke scale on the patient on 08/09/24 at 0930. The patient scored 5 points on the NIH stroke scale assessment, which were assigned as follows: See below.
Neurologic Examination:
The patient is awake, alert and oriented to person, year, and hospital ([facility]). He is able to follow commands and answer questions appropriately. There is no aphasia. Speech is dysarthric. On cranial nerve assessment, pupils are 3 mm
bilateral, round and reactive to light and accommodation. Visual finney appear full. Extraocular movements are intact. There is mild right facial drooping. Hearing is diminished bilaterally to normal conversation volume. Tongue palate and uvula are
midline. Motor strengths are 5/5 bilateral upper and lower extremities on medical research Tolono scale. There is no drift or involuntary movement noted. Deep tendon reflexes are 2+ bilateral upper and lower extremities, R Achilles with one beat of
clonus. Babinski is absent bilaterally. There was no extinction noted on double simultaneous stimulation. Coordination is intact by finger to nose bilaterally.
Lab Results: See below.
Neuro Imaging:
1. CT Head 08/09/24: No acute intracranial hemorrhage is identified.There is a subdural hematoma in the right frontoparietal region. This is likely chronic, as the collection is low-attenuation, and the medial rim of the collection is thickened and
partially calcified. The collection is presumably related to the frontotemporal craniotomy. Small amount of gas within the collection. This is likely postsurgical, but please correlate clinically for any possibility of infection of this fluid
collection. Gliosis in the right frontal white matter anteriorly. This is presumably related to the reported history of traumatic brain injury. No CT evidence for acute infarct. Aspects score: 10/10.
2. CTA head/neck 08/09/24: Right hemispheric subdural hematoma, mostly chronic, with evidence of recent prior craniotomy. The left vertebral artery is opacified within the V1 and V2 segments. The 3 segment is difficult to evaluate due to patient
motion artifact, however is not confidently opacified at the V3 level and may be occluded. The right vertebral artery is dominant, and supplies the basilar artery. No evidence of basilar artery occlusion.
Calcified pleural plaques at each lung apex, consistent with asbestos related pleural disease.
3. EEG 08/09/24: Diffuse slowing, negative for seizure.
Differentials for the patient's presentation include:
1. Change in mental status possibly due to toxic metabolic encephalopathy in the setting of polypharmacy, possible pneumonia, hypertensive encephalopathy.
2. Low concern for stroke.
3. Likely chronic subdural hematoma.
4. Seizure disorder s/p TBI, EEG negative for seizure.
Patient has the following risk factors for their symptoms: hypertension, hx seizure, hx TBI, hx stroke, PD, polypharmacy
IV Tenecteplase/IAT candidacy: He is not a candidate for TNK/IAT due to unknown last known normal time and low suspicion for stroke due to lack of focal findings.
Recommendations:
-Continue clopidogrel 75mg daily.
-Goal normotension.
-Primidone level pending. Valproic acid level is normal.
-Minimize sedating medications.
-Infectious workup per primary team.
-Do not see a role for further neurological imaging at this time.
Discussed patient care with: Dr. Kerr, Dr. Pichardo, the patient
Vital Signs and Labs
-
Vital Signs and Labs:
Vital Signs
Temp Pulse Resp BP Pulse Ox
96.5 F L 73 15 191/97 99
08/09/24 10:39 08/09/24 14:00 08/09/24 14:00 08/09/24 13:18 08/09/24 13:18
Lab Results
08/09/24 10:33
08/09/24 10:33
Sodium 142 mmol/L (135-145) 08/09/24 10:33
Potassium mmol/L (3.5-5.1) 08/09/24 10:33
BUN 12 mg/dl (9-20) 08/09/24 10:33
Glucose 103 mg/dl (70-99) H 08/09/24 10:33
Calcium 9.5 mg/dl (8.4-10.2) 08/09/24 10:33
Medications
-
Active Medications
Generic Name Dose Route Start Last Admin
Trade Name Freq PRN Reason Stop Dose Admin
Labetalol HCl 10 mg 08/09/24 14:07
Labetalol Hcl 5 Mg/1 Ml (20 Mg/4 Ml) Injection IV 08/09/24 14:08
NOW STA
Home Medications
�Medication �Instructions �Recorded
atorvastatin 40 mg tablet 40 mg PO QPM High Cholesterol 06/06/24
budesonide 0.5 mg/2 mL suspension 0.5 mg inhalation BID COPD 06/06/24
for nebulization
carbidopa 25 mg-levodopa 100 mg 3 tab PO TID with meals 06/06/24
tablet
carbidopa ER 50 mg-levodopa 200 mg 2 tab PO HS PARKINSONS 06/06/24
tablet,extended release
clopidogrel 75 mg tablet 75 mg PO DAILY Blood Clot 06/06/24
Prevention/Tx
divalproex 500 mg tablet,delayed 1,000 mg PO TID Seizures 06/06/24
release
formoterol fumarate 20 mcg/2 mL 2 ml inhalation BID COPD 06/06/24
solution for nebulization
furosemide 40 mg tablet 40 mg PO DAILY Fluid 06/06/24
Retention/Swelling
insulin lispro 100 unit/mL 0 unit SC .WITH MEALS sliding scale 06/06/24
subcutaneous pen
levothyroxine 75 mcg tablet 75 mcg PO DAILY Thyroid 06/06/24
magnesium hydroxide 400 mg/5 mL 30 ml PO DAILY PRN constipation ##0 06/06/24
oral suspension (Milk of Magnesia)
magnesium oxide 400 mg (241.3 mg 400 mg PO BID 06/06/24
magnesium) tablet
tkmgmjwz-ggn-oljqg acid 0.4 1 tab PO DAILY Supplement 06/06/24
mg-lycopene 300 mcg-lutein 250 mcg
tablet (Cerovite Senior)
pantoprazole 40 mg tablet,delayed 40 mg PO DAILY Gastrointestinal 06/06/24
release Issue
primidone 250 mg tablet 500 mg PO HS Seizures 06/06/24
tizanidine 2 mg tablet 2 mg PO BID Muscle Spasms 06/06/24
tramadol 50 mg tablet 50 mg PO BID PRN PAIN 06/06/24
acetaminophen 325 mg tablet 650 mg PO Q4H PRN pain/fever 07/27/24
amiodarone 200 mg tablet 200 mg PO DAILY Arrhythmia 07/27/24
bisacodyl 10 mg rectal suppository 10 mg MI DAILY PRN constipation 07/27/24
(Dulcolax (bisacodyl))
dextromethorphan-guaifenesin 10 10 ml PO Q4H PRN prn 07/27/24
mg-100 mg/5 mL oral syrup
fluticasone propionate 50 1 spray intranasal HS Allergies 07/27/24
mcg/actuation nasal
spray,suspension
polyethylene glycol 3350 17 gram 17 g PO DAILY PRN constipation 07/27/24
oral powder packet
revefenacin 175 mcg/3 mL solution 175 mcg inhalation DAILY COPD 07/27/24
for nebulization (Yupelri)
sodium phosphates 19 gram-7 118 ml MI PRN PRN constipation 07/27/24
gram/118 mL enema (Fleet Enema)
cholecalciferol (vitamin D3) 10 10 mcg PO DAILY Supplement 08/09/24
mcg (400 unit) tablet (Vitamin D3)
docusate sodium 100 mg capsule 100 mg PO BID PRN CONSTIPATION 08/09/24
insulin glargine 100 unit/mL (3 14 unit SC DAILY Diabetes 08/09/24
mL) subcutaneous pen (Lantus
Solostar U-100 Insulin)
NIH Stroke Score
Subsequent NIH Scale
Date of Subsequent NIH Scale: 08/09/24
Time of Subsequent NIH Scale: 09:30
NIH Stroke Score
Level of Consciousness: 1 - Arousable
LOC Questions: 2-Neither correct
LOC Commands: 0-Performs both correctly
Best Horizontal Gaze: 0-Normal
Visual Finney: 0=Normal, no visual loss
Facial Palsy: 1=Minor paralysis
Motor - Right Arm: 0=No drift 10 seconds
Motor - Left Arm: 0=No drift 10 seconds
Motor - Right Le-No drift 5 seconds
Motor - Left Le-No drift 5 seconds
Limb Ataxia: 0-Absent
Sensation: 0-Normal
Best Language: 0-No aphasia
Dysarthria: 1-Mild slurring
Extinction and Inattention: 0-No abnormality
NIH Total Score:: 5

Documented by User: Itz Kerr MD 08/09/24 14:45
NIH Stroke Score
NIH Stroke Score
NIH Total Score:: 5
[2024-08-09 13:50] LABS: COVID-19 Antigen Negative (Negative)
--- NOTE | 2024-08-09 14:03 | W.PN.UPDATE ---
Addendum entered and electronically signed by Lois Galan MD 08/09/24 14:08:
Possible hypertensive encephelopathy.
Addendum entered and electronically signed by Lois Galan MD 08/09/24 14:08:
PRN labetalol for Uncontrolled Hypertension for SBP >180.
Original Note:
Update Note
Progress Note Update
This is an addendum to H&P written by Rohini Berg on 08/09/2024. Patient seen and examined independently with PA.
74-year-old male with past medical history of hypertension, diabetes, severe aortic stenosis, PAD, traumatic brain injury with subdural hematoma s/p craniotomy and embolization last year, occipital CVA, seizure disorder, neuropathy, Parkinson's
disease, bipolar disorder, familial tremor, hypothyroidism, obstructive sleep apnea, COPD, GERD, chronic back pain, history of tachycardia on amiodarone, presenting with increased somnolence for few days. Patient was picked up this morning for
outpatient TAVR procedure. He was noted to be somnolent at [facility] and stroke alert was called with neurology evaluation.
Patient currently back to baseline. Has chronic cough.
Vital signs show temperature of 96.5.
CTA head and neck showed right frontoparietal hemispheric subdural hematoma mostly chronic with evidence of recent prior craniotomy. Left vertebral artery is opacified within the V1 and V2 segments.
Chest x-ray shows patchy foci of interstitial and alveolar opacity in the right midlung zone right lung base suggestive of bronchopneumonia or aspiration.
Labs show leukopenia. VBG unremarkable. Urinalysis unremarkable.
Patient with possible seizure versus chronic intermittent subdural hematoma symptoms. Currently back to baseline mental status. Check MRI and EEG. Neurology evaluation.
Symptoms not highly concerning for aspiration pneumonia however given hypothermia, leukopenia will start Unasyn. Check speech and swallow evaluation.
[2024-08-09] MEDS: TRANDATE 10 MG IV (14:19)
--- NOTE | 2024-08-09 14:29 | EEG.RPT ---
Electroencephalogram Report
Recording
Date of EE08/09/24
Type of EEG: Routine
Length of EEG recordin minutes
Done with Video Recording: Yes
Patient Status: Inpatient
Recording Conditions: Awake and Drowsy
Hyperventilation Performed: No
Photic Stimulation Performed: Yes
Report
LESS THAN 1 HOUR EEG INTERPRETATION:
Mildly abnormal EEG for age mild diffuse bihemispheric slowing
CLINICAL CORRELATION:
This study was suggestive of mild diffuse cortical dysfunction without focal abnormality. No seizures were recorded.
Clinical correlation is advised.
METHODS:
A 21 channel digitized electroencephalogram (EEG) was performed in the emergency department. The 10/20 international system of electrode placement was used with ECG and lateral/vertical eye movements recorded. The [employer] quantitative EEG analysis
system was performed.
QUALITY OF STUDY:
Fair
ELECTROENCEPHALOGRAPHER IMPRESSION(S):
Background
Medium amplitude
Organization of anterior-posterior voltage gradient: Fair-good
Maximal activity: Theta
There were no significant asymmetries of background activity noted.
Sleep
Drowsiness present
Photic Stimulation
Failed to activate the record
ECG
Normal sinus rhythm
--- NOTE | 2024-08-09 14:55 | PTOTSP ---
Speech Language Pathology
Pt seen for clinical bedside swallow evaluation. Sister present at bedside who reported TBI was in 2022. After TBI, pt was initially on thickened liquids, but has been on regular solids/thin liquids for a long time. Has had multiple VSEs
completed at both [facility] and [facility] with normal findings per sister.
P.O. trials of puree, regular solids, and thin liquids provided. Adequate mastication, bolus formation, and A-P transit noted with no oral residue. Brief throat clear following regular solids x1. No overt signs of aspiration.
Pt reported that some Parkinsons symptoms have worsened since last VSE. Discussed that it is possible that swallowing has also worsened, and discussed increased risk for silent aspiration with Parkinsons. Pt would prefer to defer repeat VSE at
this time, but is agreeable if does not tolerate diet.
Recommend:
(1) Regular solids/thin liquids
(2) General aspiration precautions
(3) Meds as tolerated
(4) EVENT ATTENDANT to continue to follow to ensure diet tolerance. Will consider repeat VSE if worsened CXR or increased WBC noted.
[2024-08-09 16:05] LABS: TSH Reflex To Free T4 1.94 uIU/ml (0.47-4.68)
--- NOTE | 2024-08-09 16:21 | PTCARENOTE ---
Pt transferred from ED. Pt AAOX2/3, able to make needs known, VSS. Pt oriented to unit, call shaw within reach, bed alarm applied. Will continue with current plan.
[2024-08-09 17:01] LABS: Glucose - Point of Care 124 mg/dl (70-99)
[2024-08-09] MEDS: SINEMET 25-100 3 TABLET PO (17:39)
[2024-08-09] MEDS: DEPAKOTE (12 HR RELEASE) 1000 MG PO ×2 (17:39→22:06)
[2024-08-09] MEDS: LIPITOR 40 MG PO (17:40)
[2024-08-09] MEDS: UNASYN IV (17:40)
[2024-08-09] MEDS: NOVOLOG FLEXPEN-LOW RESISTANCE SC (17:41)
[2024-08-09] MEDS: PULMICORT 0.5 MG INH (19:44)
[2024-08-09 21:32] LABS: Glucose - Point of Care 148 mg/dl (70-99)
[2024-08-09] MEDS: MYSOLINE 500 MG PO (22:05)
[2024-08-09] MEDS: SINEMET CR 50/200 (EXTENDED RELEASE) 2 TABLET PO (22:06)
[2024-08-09] MEDS: ZANAFLEX 2 MG PO (22:06)
[2024-08-10] VITALS (8 sets, daily range): BP systolic 108–163; BP diastolic 77–93; PULSE 66; O2SAT 97; BMI 26.3
[2024-08-10] MEDS: TYLENOL 650 MG PO (01:22)
[2024-08-10] MEDS: UNASYN IV ×3 (01:22→12:48)
[2024-08-10] MEDS: SYNTHROID 75 MCG PO (05:51)
[2024-08-10 06:14] LABS: Mean Corp Hgb Conc. 35.1 g/dL (33.0-37.0); Mean Corpuscular Hgb 33.7 pg (27.0-31.0); Mean Corpuscular Volume 95.9 fL (80.0-94.0); Mean Platelet Volume 9.5 fL (7.4-10.4); Platelet Count 164 10^3/uL (130-400); Red Blood Cell Count 3.86 10^6/uL (4.70-6.10); Red Cell Dist. Width 13.3 % (11.5-14.5); White Blood Cell Count 5.1 10^3/uL (4.8-10.8)
[2024-08-10 06:38] LABS: Blood Urea Nitrogen 10 mg/dl (9-20); Calcium 9.3 mg/dl (8.4-10.2); Carbon Dioxide 24 mmol/L (22-30); Chloride 109 mmol/L (98-107); Estimated Creatinine Clearance 81 ml/min; Glucose 121 mg/dl (70-99); Potassium 4.4 mmol/L (3.5-5.1); Sodium 140 mmol/L (135-145); eGFR > 60.00
[2024-08-10 07:10] LABS: Cortisol, Random 4.2 ug/dl
[2024-08-10 07:13] LABS: Hepatitis C Antibody Negative (Negative)
--- NOTE | 2024-08-10 07:24 | W.PN.HOSP.TC ---
Today's Communication/Plan
-
Lisinopril
Discontinue Unasyn
Assessment / Plan
Assessment / Plan
Impression:
Plan:
#Altered mental status likely due to history of seizure, ?orthostatic
-Consult Neurology, appreciated
- EEG 08/09 with no seizure findings, U/A unremarkable
- Brain MRI, head CT: No evidence for acute infarct, no acute intracranial abnormality
- Head CTA: Right hemispheric subdural hematoma mostly chronic with evidence of recent prior craniotomy
-Patient's mental status returning to normal due to its transient nature, more likely seizure
- Will require neurology outpatient follow-up
- Speech recommendations: Regular food, thin liquids
# Episode of hypothermia 08/09
- Initially thought to be due to possible aspiration pneumonia
-Discontinued Unasyn as unlikely to be pneumonia with normal white count, normal lactic acid, with no overt signs of aspiration as per speech
#Uncontrolled Hypertension/orthostatic
�TSH normal
�Will start lisinopril
-Monitor blood pressure
- Continue home BP meds
#Traumatic Brain Injury / Traumatic Right Frontoparietal Subdural Hematoma s/p Craniotomy and Embolization
-Consult PT/OT
- Speech Therapy:Regular food, thin liquids
#Hx of seizure Disorder
-Continue Depakote
-Continue Primidone
� EEG with no seizure recording
#Prior CVA occipital stroke
-Continue Plavix
#Hyperlipidemia
-Continue atorvastatin
#Diabetes Mellitus, Type II
-Continue Lantus at decreased dose until able seen by speech / able to resume usual diet
-Monitor sugars and continue coverage insulin
#Severe Aortic Stenosis
-Continue Lasix
-Monitor Daily Weights
#?History of SVT
-Sister notes episodes of SVT
-Continue amiodarone
#COPD
-Continue budesonide, formoterol
#Parkinson's Disease
-Continue Sinemet
-Continue Primidone
#Hypothyroidism
-Continue levothyroxine
#PAD s/p Left Common Iliac and Left Common Femoral Artery Angioplasty
DVT proph: SCDs
Code Status: Full Code
Anticipated Discharge: 24 - 48 hours
Subjective/Interval History
-
Date of Service: August 10, 2024
Patient seemed alert awake and oriented to conversation. Admits to having back pain. Denies any severe headache
Objective Data
-
Labs:
Laboratory Results
08/10/24
06:00
WBC 5.1
Hgb 13.0
Hct 37.0 L
Plt Count 164
Sodium 140
Potassium 4.4
Chloride 109 H
Carbon Dioxide 24
BUN 10
Creatinine 0.8
Glucose 121 H
Calcium 9.3
Vital Signs:
Vital Signs
Temp Pulse Resp BP Pulse Ox
97.4 F 71 20 108/77 97
08/10/24 03:40 08/10/24 03:40 08/10/24 03:40 08/10/24 03:40 08/10/24 03:40
I&O
08/09/24 08/10/24 08/11/24
06:59 06:59 06:59
Intake Total 120 / 120
Output Total 800 / 800
Balance -680 / -680
Review of Systems
-
All other systems: Reviewed and negative
Physical Exam
-
General: Well Developed, No Apparent Distress and Comfortable
HEENT: Moist Mucous Membranes and Other (Craniotomy surgical scar)
Respiratory: Clear to Auscultation
Cardiac: Regular Rhythm and S1/S2
GI: Soft, Nontender and Nondistended
Musculoskeletal: No Cyanosis and No Edema
Skin: Warm and Dry
Neuro: Awake, Alert and Oriented
Psych: Calm
[2024-08-10] MEDS: PULMICORT 0.5 MG INH ×2 (08:08→20:32)
[2024-08-10] MEDS: STRIVERDI RESPIMAT 2 PUFF INH (08:08)
[2024-08-10 08:30] LABS: Glucose - Point of Care 109 mg/dl (70-99)
[2024-08-10] MEDS: NOVOLOG FLEXPEN-LOW RESISTANCE SC (08:58)
[2024-08-10] MEDS: SINEMET 25-100 3 TABLET PO ×3 (08:59→17:11)
[2024-08-10] MEDS: PACERONE 200 MG PO (08:59)
[2024-08-10] MEDS: DEPAKOTE (12 HR RELEASE) 1000 MG PO ×3 (08:59→21:11)
[2024-08-10] MEDS: PLAVIX 75 MG PO (08:59)
[2024-08-10] MEDS: PROTONIX 40 MG PO (08:59)
[2024-08-10] MEDS: LASIX 40 MG PO (08:59)
[2024-08-10] MEDS: ZANAFLEX 2 MG PO ×2 (08:59→21:12)
[2024-08-10] MEDS: LANTUS 0.1 UNITS SC (09:00)
[2024-08-10 12:34] LABS: Glucose - Point of Care 167 mg/dl (70-99)
[2024-08-10] MEDS: NOVOLOG FLEXPEN-LOW RESISTANCE 1 UNITS SC ×2 (13:21→17:10)
[2024-08-10] MEDS: NORCO 5/325 1 TABLET PO (13:23)
[2024-08-10] MEDS: COZAAR 25 MG PO (13:23)
--- NOTE | 2024-08-10 15:20 | CM ---
Patient seen at bedside with patient sister. Patient OBS form completed and signed form placed on chart. Patient sister indicated that she would transport patient home and patient states that he has had [facility] at the personal care with [address] in [place], no answer. Patient PCP is Dr. Rogers and he uses the [facility]; [phone] and fax [phone]. Patient sister Klarissa updated that patient is now INP and that therapy is recommending SNF at this time. Patient did not need
any previous assistance to walk. Per Tamiko Yovigo, patient would be able to return to community as they could offer assistance. CM located phone number for [facility] [phone]. CM will continue to follow for discharge planning needs.
Plan; SNF vs home to personal care with [facility] for [facility]; will need referrals if patient choses to go to rehab vs home with [facility]
--- NOTE | 2024-08-10 15:28 | W.PN.NEURO.1 ---
Today's Communication / Plan
-
Would continue current medications including valproic acid and primidone at current levels
Consider additional antiseizure medication should the patient have additional recurrent events
Patient should receive prescription for midazolam nasal spray 1 spray in 1 nostril as needed seizure-like activity
From neurological perspective, patient is a candidate for TAVR
Continue current medications for tremor including carbidopa/levodopa and primidone
Neuro Assessment/Plan
Assessment
Abrupt, recurrent onset of change in mental status in a patient with a prior history of traumatic brain injury, subdural hematoma, craniotomy and seizures
Ddx includes recurrent seizure, psychogenic seizure, toxic metabolic encephalopathy. Clear etiology is not available as the patient's EEG was not definitive and MRI did not demonstrate acute changes
Plan
Would continue current medications including valproic acid and primidone at current levels
Consider additional antiseizure medication should the patient have additional recurrent events
Patient should receive prescription for midazolam nasal spray 1 spray in 1 nostril as needed seizure-like activity
From neurological perspective, patient is a candidate for TAVR
Continue current medications for tremor including carbidopa/levodopa and primidone
Will follow as needed. Patient has planned outpatient follow-up with his usual neurologist
Subjective/Objective
Subjective Data
Date of Service: August 10, 2024
Objective Data
Vital Signs
Temp Pulse Resp BP Pulse Ox
36.3 C 66 18 163/93 96
08/10/24 11:00 08/10/24 11:00 08/10/24 11:00 08/10/24 11:00 08/10/24 11:00
Lab Results
08/10/24 06:00
08/10/24 06:00
Sodium 140 mmol/L (135-145) 08/10/24 06:00
Potassium 4.4 mmol/L (3.5-5.1) 08/10/24 06:00
BUN 10 mg/dl (9-20) 08/10/24 06:00
Glucose 121 mg/dl (70-99) H 08/10/24 06:00
Calcium 9.3 mg/dl (8.4-10.2) 08/10/24 06:00
Patient Allergies
dulaglutide Allergy (Verified 08/09/24 16:07)
Thought to be drug interaction but disproven
haloperidol (From Haldol) Allergy (Verified 07/25/24 13:28)
Unknown
metformin Allergy (Verified 07/25/24 13:28)
Vomiting
tiotropium (From Spiriva with HandiHaler) Allergy (Verified 07/25/24 13:28)
Coughing
Data Reviewed
-
Labs: Report Reviewed
Reviewed with: Physician and Family
Old Records: Summarized
[2024-08-10 16:44] LABS: Glucose - Point of Care 172 mg/dl (70-99)
[2024-08-10] MEDS: LIPITOR 40 MG PO (17:12)
[2024-08-10] MEDS: SINEMET CR 50/200 (EXTENDED RELEASE) 2 TABLET PO (21:11)
[2024-08-10] MEDS: MYSOLINE 500 MG PO (21:12)
[2024-08-10 21:54] LABS: Glucose - Point of Care 105 mg/dl (70-99)
[2024-08-11] VITALS (7 sets, daily range): BP systolic 133–176; BP diastolic 77–95; BMI 26.6
[2024-08-11] MEDS: SYNTHROID 75 MCG PO (05:27)
[2024-08-11] MEDS: STRIVERDI RESPIMAT 2 PUFF INH (08:05)
[2024-08-11] MEDS: PULMICORT 0.5 MG INH ×2 (08:05→20:25)
[2024-08-11 08:26] LABS: Glucose - Point of Care 102 mg/dl (70-99)
[2024-08-11] MEDS: NOVOLOG FLEXPEN-LOW RESISTANCE SC ×3 (08:36→17:18)
[2024-08-11] MEDS: LANTUS 0.1 UNITS SC (08:37)
[2024-08-11] MEDS: COZAAR 25 MG PO (08:37)
[2024-08-11] MEDS: DEPAKOTE (12 HR RELEASE) 1000 MG PO ×3 (08:37→22:08)
[2024-08-11] MEDS: LASIX 40 MG PO (08:38)
[2024-08-11] MEDS: ZANAFLEX 2 MG PO (08:38)
[2024-08-11] MEDS: PACERONE 200 MG PO (08:38)
[2024-08-11] MEDS: PROTONIX 40 MG PO (08:38)
[2024-08-11] MEDS: PLAVIX 75 MG PO (08:38)
[2024-08-11] MEDS: SINEMET 25-100 3 TABLET PO ×3 (08:39→17:18)
--- NOTE | 2024-08-11 12:30 | W.PN.HOSP.TC ---
Today's Communication/Plan
-
Monitor for mentation improvement
Continue current treatment
Assessment / Plan
Assessment / Plan
1. Acute encephalopathy -transient nature and patient was apparently somnolent for some time. Patient was back to his normal self by the time in ER. With patient known history of TBI/chronic subdural hematoma question of possible nonconvulsive
seizure episode/postictal state causing patient's symptoms. EEG done was negative in ER. Valproic acid level within normal limit.
-Discussed with patient sister who is medical power of employment law attorney and will discontinue tramadol for pain control as may lower threshold for seizures.
-Alternatively patient does have a history of Parkinson and orthostasis episode can also cause patient to be more somnolent be less responsive.
-recommended patient to be checked for orthostatic vitals while in the hospital
- Patient somnolent again today. No new medication except [place] of which patient got dose yesterday in afternoon around 1300. Will need repeat evaluation by neurology if patient continues to remain somnolent.
2. History of right sided subdural hematoma -this is somewhat chronic in nature and happened in 2022. Patient had CTA head and neck and MRI brain here which did not show any acute new issues. Neurology is following and had discussed imaging
finding with neurosurgery and no further intervention required.
3. Uncontrolled hypertension -patient systolic blood pressure in 160s. Avoiding vasodilators with risk of exacerbating orthostasis. Starting patient on GURPREET/ARB
4. COPD -no signs of flareup maintained on nebulizer therapy
5. History of Parkinson's disease -patient has been diagnosed with Parkinson's disease and managed by neurology at [place]. Patient has been in and out rehab for last year or 2. Maintained on Sinemet therapy.
History of CVA
History of supraventricular tachycardia
Severe aortic stenosis
Hypothyroidism
Hyperlipidemia
History of peripheral artery disease status post left common iliac/left common femoral artery angioplasty
DVT prophylaxis - SCD
Anticipated Discharge: Within 24 hours
Subjective/Interval History
-
Date of Service: August 11, 2024
Patient again somewhat somnolent
No reported seizure-like activity
No other acute issues reported
Objective Data
-
Vital Signs:
Vital Signs
Temp Pulse Resp BP Pulse Ox
98.7 F 73 18 176/95 98
08/11/24 11:16 08/11/24 11:16 08/11/24 11:16 08/11/24 11:16 08/11/24 11:16
I&O
08/10/24 08/11/24 08/12/24
06:59 06:59 06:59
Intake Total 120 / 120 1200 / 1200
Output Total 800 / 800 2400 / 2400
Balance -680 / -680 -1200 / -1200
Review of Systems
-
Unable to obtain full review of systems at this time due to: Acuity
Physical Exam
-
General: Negative Respiratory Distress or Appears in Distress
HEENT: Negative Oxygen
Neuro: Negative Awake or Alert
[2024-08-11 12:39] LABS: Glucose - Point of Care 185 mg/dl (70-99)
--- NOTE | 2024-08-11 14:24 | CM ---
Patient medically stable for d/c. Per chart, therapy rec skilled rehab but unsure if patient would be agreeable vs returning to assisted living w/ resumption of [facility] services.
CM spoke w/ patient's sister, Klarissa, to discuss d/c plan. Klarissa shared that [facility] has therapy on site. CM discussed that at skilled rehab patient would get therapy every day versus on site and [facility] only seeing patient possibly 2-3
times a week. CM shared that d/c plan would be based on how patient would be independent enough to return to assisted living and maintain on days home PT is not there. Klarissa shared patient has been at rehab facilities before in which he was better
off at home. Klarissa stated the only rehab that would be considered is [facility] as patient has been there before and improved significantly. Klarissa agreeable to plan for SNF at [facility].
CM spoke w/ admissions at [facility] who is familiar w/ patient. CM was told that DON will be consulted w/ and inquire on bed availability.
CM placed referral in [facility].
Updated hospitalist on d/c plan
Plan: SNF; [facility] preferred
[2024-08-11 17:19] LABS: Glucose - Point of Care 156 mg/dl (70-99)
[2024-08-11] MEDS: LIPITOR 40 MG PO (17:19)
[2024-08-11 21:49] LABS: Glucose - Point of Care 120 mg/dl (70-99)
[2024-08-11] MEDS: SINEMET CR 50/200 (EXTENDED RELEASE) 2 TABLET PO (22:07)
[2024-08-11] MEDS: MYSOLINE 500 MG PO (22:08)
--- NOTE | 2024-08-11 23:03 | PTCARENOTE ---
Assumed care of pt from the previous nurse. pt denies pain. Pt call shaw is within reach, pt rings eldon. will cont to monitor. Pt is on tele running nsr with bbb.
[2024-08-12 03:00] VITALS: BP 143/84
[2024-08-12 06:00] VITALS: BMI 27.7
[2024-08-12] MEDS: SYNTHROID 75 MCG PO (06:10)
[2024-08-12 07:00] VITALS: BP 139/81
[2024-08-12 07:48] LABS: Glucose - Point of Care 115 mg/dl (70-99)
[2024-08-12] MEDS: STRIVERDI RESPIMAT 2 PUFF INH (07:53)
[2024-08-12] MEDS: PULMICORT 0.5 MG INH ×2 (07:53→20:25)
[2024-08-12] MEDS: LANTUS 0.1 UNITS SC (08:13)
[2024-08-12] MEDS: NOVOLOG FLEXPEN-LOW RESISTANCE SC ×3 (08:13→16:51)
[2024-08-12] MEDS: PLAVIX 75 MG PO (08:14)
[2024-08-12] MEDS: PROTONIX 40 MG PO (08:14)
[2024-08-12] MEDS: LASIX 40 MG PO (08:15)
[2024-08-12] MEDS: COZAAR 25 MG PO (08:15)
[2024-08-12] MEDS: DEPAKOTE (12 HR RELEASE) 1000 MG PO ×3 (08:15→21:17)
[2024-08-12] MEDS: PACERONE 200 MG PO (08:15)
[2024-08-12] MEDS: SINEMET 25-100 3 TABLET PO ×3 (08:46→17:28)
--- NOTE | 2024-08-12 09:41 | CM ---
Per [facility], unable to accept patient as there is no justification for continued therapy and patient does not have a skillable need. Reviewed this w/ patient's sister, Klarissa, who stated she trusts [facility] insight as they
are familiar w/ patient. Klarissa encouraged CM to discuss w/ DON, Liz Lezama to review and determine if SNF would be appreciated or if facility can accept back at current level.
CM spoke w/ Liz- [phone] regarding d/c plan, reviewed PT, per Liz current eval is not patient's baseline and would like for CM to plan for SNF.
Updated PT eval appreciated, will review once patient is seen again if SNF cont to be recommendation
Updated Klarissa
Plan: SNF vs return to assisted living
[2024-08-12 11:00] VITALS: BP 156/92
[2024-08-12 11:38] LABS: Glucose - Point of Care 126 mg/dl (70-99)
[2024-08-12 15:00] VITALS: BP 142/85
--- NOTE | 2024-08-12 15:05 | W.PN.HOSP.TC ---
Today's Communication/Plan
-
d/c planning for snf rehab
Assessment / Plan
Assessment / Plan
1. Acute encephalopathy -transient nature and patient was apparently somnolent for some time. Patient was back to his normal self by the time in ER. With patient known history of TBI/chronic subdural hematoma question of possible nonconvulsive
seizure episode/postictal state causing patient's symptoms. EEG done was negative in ER. Valproic acid level within normal limit.
-Discussed with patient sister who is medical power of patent prosecution attorney and will discontinue tramadol for pain control as may lower threshold for seizures.
-Alternatively patient does have a history of Parkinson and orthostasis episode can also cause patient to be more somnolent be less responsive.
-recommended patient to be checked for orthostatic vitals while in the hospital
- Patient continued to have altered sleep pattern and has been up all night. Remains somnolent during morning time.
2. History of right sided subdural hematoma -this is somewhat chronic in nature and happened in 2022. Patient had CTA head and neck and MRI brain here which did not show any acute new issues. Neurology is following and had discussed imaging
finding with neurosurgery and no further intervention required.
3. Uncontrolled hypertension -patient systolic blood pressure in 160s. Avoiding vasodilators with risk of exacerbating orthostasis. Starting patient on GURPREET/ARB
4. COPD -no signs of flareup maintained on nebulizer therapy
5. History of Parkinson's disease -patient has been diagnosed with Parkinson's disease and managed by neurology at [place]. Patient has been in and out rehab for last year or 2. Maintained on Sinemet therapy.
History of CVA
History of supraventricular tachycardia
Severe aortic stenosis
Hypothyroidism
Hyperlipidemia
History of peripheral artery disease status post left common iliac/left common femoral artery angioplasty
DVT prophylaxis - SCD
Anticipated Discharge: Within 24 hours
Subjective/Interval History
-
Date of Service: August 12, 2024
Patient remains somnolent during daytime , not sleeping well overnight
No reported seizure-like activity
Objective Data
-
Vital Signs:
Vital Signs
Temp Pulse Resp BP Pulse Ox
97.4 F 69 20 156/92 93
08/12/24 11:00 08/12/24 11:00 08/12/24 11:00 08/12/24 11:00 08/12/24 11:00
I&O
08/11/24 08/12/24 08/13/24
06:59 06:59 06:59
Intake Total 1200 / 1200 960 / 960
Output Total 2400 / 2400 1100 / 1100
Balance -1200 / -1200 -140 / -140
Review of Systems
-
Unable to obtain full review of systems at this time due to: Acuity
Physical Exam
-
General: Negative Respiratory Distress or Appears in Distress
HEENT: Negative Oxygen
Neuro: Negative Awake or Alert
[2024-08-12 16:30] LABS: Glucose - Point of Care 118 mg/dl (70-99)
[2024-08-12] MEDS: LIPITOR 40 MG PO (17:28)
[2024-08-12 19:34] VITALS: BP 162/91
[2024-08-12 21:11] LABS: Glucose - Point of Care 154 mg/dl (70-99)
[2024-08-12] MEDS: MYSOLINE 500 MG PO (21:17)
[2024-08-12] MEDS: SINEMET CR 50/200 (EXTENDED RELEASE) 2 TABLET PO (21:17)
[2024-08-12 23:12] VITALS: BP 153/92
[2024-08-13] VITALS (7 sets, daily range): BP systolic 121–150; BP diastolic 80–91; PULSE 71; BMI 25.0
[2024-08-13] MEDS: SYNTHROID 75 MCG PO (05:00)
[2024-08-13 07:50] LABS: Glucose - Point of Care 109 mg/dl (70-99)
[2024-08-13] MEDS: STRIVERDI RESPIMAT 2 PUFF INH (08:03)
[2024-08-13] MEDS: PULMICORT 0.5 MG INH ×2 (08:03→19:31)
[2024-08-13] MEDS: NOVOLOG FLEXPEN-LOW RESISTANCE SC ×2 (08:20→17:04)
[2024-08-13] MEDS: COZAAR 25 MG PO (08:21)
[2024-08-13] MEDS: SINEMET 25-100 3 TABLET PO ×3 (08:21→16:57)
[2024-08-13] MEDS: PACERONE 200 MG PO (08:21)
[2024-08-13] MEDS: PROTONIX 40 MG PO (08:22)
[2024-08-13] MEDS: PLAVIX 75 MG PO (08:22)
[2024-08-13] MEDS: LANTUS 0.1 UNITS SC (08:22)
[2024-08-13] MEDS: DEPAKOTE (12 HR RELEASE) 1000 MG PO ×3 (08:23→21:25)
[2024-08-13] MEDS: LASIX 40 MG PO (08:23)
[2024-08-13 08:29] LABS: Blood Urea Nitrogen 18 mg/dl (9-20); Calcium 9.3 mg/dl (8.4-10.2); Carbon Dioxide 22 mmol/L (22-30); Chloride 109 mmol/L (98-107); Estimated Creatinine Clearance 81 ml/min; Glucose 111 mg/dl (70-99); Potassium 4.3 mmol/L (3.5-5.1); Sodium 139 mmol/L (135-145); eGFR > 60.00
[2024-08-13] MEDS: TYLENOL 650 MG PO (10:44)
[2024-08-13 11:45] LABS: Glucose - Point of Care 179 mg/dl (70-99)
[2024-08-13] MEDS: NOVOLOG FLEXPEN-LOW RESISTANCE 1 UNITS SC (12:20)
--- NOTE | 2024-08-13 14:12 | W.PN.HOSP.TC ---
Today's Communication/Plan
-
X-ray of the back. Pain control. Discharge planning
Assessment / Plan
Assessment / Plan
Physical exam:
General: Acute on chronically ill
HEENT: Normocephalic, Atraumatic and Moist Mucous Membranes
Respiratory: Clear to Auscultation; Negative Wheezes, Rales or Rhonchi
Cardiac: Regular Rhythm and S1/S2, systolic murmur
GI: Soft, Nontender and Nondistended
Musculoskeletal: Decreased range of motion in the back and tenderness. No Clubbing, No Cyanosis and No Edema
Neuro: Awake, Alert and Oriented, no gross neurological deficit
Psych: Calm
A/P:
Acute metabolic encephalopathy:
Unclear etiology but probably seizures
Continue valproic acid and primidone
Neurology consult appreciated
Plan to do midazolam nasal spray as needed for seizure-like activity
Medical stable for discharge-classification case manager to work on discharge disposition
Updated sister over the phone today, Klarissa
Acute on chronic back pain:
Obtain x-ray of the lumbar spine
Continue Tylenol as needed
Holding [place]
Will start Oxy low-dose 5 mg as needed for moderate pain- concerns for oversedation so we will need to monitor to see if he tolerates.
Bowel regimen
Hx Rhizotomy in the past
Severe aortic stenosis:
Planning during TAVR prior to admission but canceled
Neurology cleared him for procedure when appropriate by cardiology
Chronic right subdural hematoma:
Neurology discussed with neurosurgery and radiology and no acute changes noted
Probable aspiration pneumonitis and ruled out aspiration pneumonia
Parkinson disease:
Continue Sinemet 25/100 3 tabs AC and Sinemet CR 50/20 2 tabs every evening
Continue primidone 500 mg every evening
History of CVA:
Continue Plavix and statin
History of peripheral vascular disease:
Continue antiplatelet and statin
Diabetes mellitus type 2:
Continue insulin sliding scale
Cont Lantus 10 units daily
COPD:
Continue Yupelri nebulizer
Continue Respimat inhaler daily
Cont Pulmicort bid
Hypothyroidism:
Continue levothyroxine 75 mcg p.o. daily
Hypertension:
Continue losartan 25 mg p.o. daily
Hyperlipidemia:
Continue atorvastatin 40 mg p.o. every evening
Chronic HFpEF:
Continue oral furosemide 40 mg p.o. daily
Continue ARB
History of SVT (per sister):
Continue amiodarone 200 mg p.o. daily
History of right subdural hematoma with craniotomy and history of traumatic brain injury
DVT prophylaxis:
SCDs
CODE STATUS:
Full code
Anticipated Discharge: Today
Subjective/Interval History
-
Date of Service: August 13, 2024
Complains of back pain. He is alert and he knows where he is at. Afebrile
Objective Data
-
Labs:
Laboratory Results
08/13/24
06:57
Sodium 139
Potassium 4.3
Chloride 109 H
Carbon Dioxide 22
BUN 18
Creatinine 0.8
Glucose 111 H
Calcium 9.3
Vital Signs:
Vital Signs
Temp Pulse Resp BP Pulse Ox
97.3 F 71 18 139/87 97
08/13/24 11:00 08/13/24 11:00 08/13/24 11:00 08/13/24 11:00 08/13/24 11:00
I&O
08/12/24 08/13/24 08/14/24
06:59 06:59 06:59
Intake Total 960 / 960 360 / 360
Output Total 1100 / 1100 800 / 800
Balance -140 / -140 -440 / -440
--- NOTE | 2024-08-13 15:26 | CM ---
Chart reviewed. Therapy worked w/ patient today, improved from previous PT sessions
CM spoke w/ Liz/UBALDO at [address], informing her of patient's improvement and current presentation. Per Liz, patient's current presentation sounds more like his baseline compared to previous PT eval. Therapy still rec skilled rehab,
however, Liz is agreeable to accept patient back tomorrow if stable for d/c.
Updated patient's sister, Klarissa, agreeable for patient to return to personal care tomorrow if stable. Klarissa stated she will transport patient.
Patient is current w/ [facility], will resume care at d/c
Updated hospitalist
[facility]
Report: [phone] (Liz/UBALDO)

Plan: Return to [facility], [facility] w/ [facility]
[2024-08-13 16:38] LABS: Glucose - Point of Care 110 mg/dl (70-99)
[2024-08-13] MEDS: LIPITOR 40 MG PO (17:00)
[2024-08-13] MEDS: MYSOLINE 500 MG PO (21:25)
[2024-08-13] MEDS: SINEMET CR 50/200 (EXTENDED RELEASE) 2 TABLET PO (21:25)
[2024-08-13 21:27] LABS: Glucose - Point of Care 183 mg/dl (70-99)
[2024-08-14 03:41] VITALS: BP 152/91
[2024-08-14 05:18] VITALS: BMI 24.6
[2024-08-14] MEDS: SYNTHROID 75 MCG PO (05:28)
[2024-08-14 07:00] VITALS: BP 148/84
--- NOTE | 2024-08-14 07:34 | PN.CDI ---
CDI
- -
CDI:
Physician Documentation Request
Admit Date: 08/10/24 08:51
Dear Doctor Shaw,
Please review the following and provide your response in the progress notes.
Clinical Indicators:
- RN skin assessments indicate Stage 1 sacrum pressure injury, POA
Physician documentation of the type and location of wounds is required for compliant documentation. Based on the above clinical findings and your assessment, please provide the following in your progress note:
1. Location of the ulcer/wound, including laterality.
2. Type (etiology) of ulcer/wound:
- Diabetic ulcer
- Arterial (ischemic) ulcer
- Venous stasis ulcer
- Pressure (decubitus) ulcer
- Other
Use of terms such as suspected, likely, concern for, or probable (associated with a specific diagnosis that is being evaluated, monitored, or treated as if it exists) are acceptable and can be coded in the inpatient setting, when documented at the
time of discharge.
Thank you,
Richa Pacheco RN
CDI Specialist
Please use your independent medical judgment in providing your response.
*Source: National Pressure Ulcer Advisory Panel (NPUAP)
[2024-08-14 07:55] LABS: Hematocrit 42.4 % (39.0-52.0); Hemoglobin 14.9 g/dL (13.0-18.0); Mean Corp Hgb Conc. 35.1 g/dL (33.0-37.0); Mean Corpuscular Hgb 33.4 pg (27.0-31.0); Mean Corpuscular Volume 95.1 fL (80.0-94.0); Mean Platelet Volume 9.9 fL (7.4-10.4); Platelet Count 166 10^3/uL (130-400); Red Blood Cell Count 4.46 10^6/uL (4.70-6.10); Red Cell Dist. Width 13.2 % (11.5-14.5); White Blood Cell Count 5.7 10^3/uL (4.8-10.8)
[2024-08-14 08:08] LABS: Glucose - Point of Care 119 mg/dl (70-99)
[2024-08-14] MEDS: STRIVERDI RESPIMAT 2 PUFF INH (08:09)
[2024-08-14] MEDS: PULMICORT 0.5 MG INH (08:10)
[2024-08-14] MEDS: PROTONIX 40 MG PO (08:20)
[2024-08-14] MEDS: SINEMET 25-100 3 TABLET PO ×2 (08:20→11:51)
[2024-08-14] MEDS: PACERONE 200 MG PO (08:20)
[2024-08-14] MEDS: DEPAKOTE (12 HR RELEASE) 1000 MG PO (08:20)
[2024-08-14] MEDS: LASIX 40 MG PO (08:20)
[2024-08-14] MEDS: COZAAR 25 MG PO (08:20)
[2024-08-14] MEDS: PLAVIX 75 MG PO (08:20)
[2024-08-14] MEDS: NOVOLOG FLEXPEN-LOW RESISTANCE SC ×2 (08:21→11:41)
[2024-08-14] MEDS: LANTUS 0.1 UNITS SC (08:21)
--- NOTE | 2024-08-14 08:58 | W.PN.HOSP.TC ---
Addendum entered and electronically signed by Joey Shaw MD 08/14/24 14:01:
Stage 1 sacrum pressure injury, POA
Original Note:
Today's Communication/Plan
-
Discharge planning today
Assessment / Plan
Assessment / Plan
Physical exam:
General: No acute distress. Chronically ill
HEENT: Normocephalic, Atraumatic and Moist Mucous Membranes
Respiratory: Clear to Auscultation; Negative Wheezes, Rales or Rhonchi
Cardiac: Regular Rhythm and S1/S2, systolic murmur
GI: Soft, Nontender and Nondistended
Musculoskeletal: Decreased range of motion in the back and tenderness. No Clubbing, No Cyanosis and No Edema
Neuro: Awake, Alert and Oriented, no gross neurological deficit
Psych: Calm
A/P:
Acute metabolic encephalopathy:
Unclear etiology but probably seizures
Continue valproic acid and primidone
Neurology consult appreciated
Plan to do midazolam nasal spray as needed for seizure-like activity
Medical stable for discharge-wrapper caser to work on discharge disposition
Updated sister over the phone yesterday, Klarissa
Acute on chronic back pain:
Obtained x-ray of the lumbar spine and osteoarthritis chronic fractures and no acute pathology
Continue Tylenol as needed
Holding [place]
Will start Oxy low-dose 5 mg as needed for moderate pain- concerns for oversedation so we will need to monitor to see if he tolerates.
Bowel regimen
Hx Rhizotomy in the past
Severe aortic stenosis:
Planning during TAVR prior to admission but canceled
Neurology cleared him for procedure when appropriate by cardiology
Chronic right subdural hematoma:
Neurology discussed with neurosurgery and radiology and no acute changes noted
Probable aspiration pneumonitis and ruled out aspiration pneumonia
Parkinson disease:
Continue Sinemet 25/100 3 tabs AC and Sinemet CR 50/20 2 tabs every evening
Continue primidone 500 mg every evening
History of CVA:
Continue Plavix and statin
History of peripheral vascular disease:
Continue antiplatelet and statin
Diabetes mellitus type 2:
Continue insulin sliding scale
Cont Lantus 10 units daily
COPD:
Continue Yupelri nebulizer
Continue Respimat inhaler daily
Cont Pulmicort bid
Hypothyroidism:
Continue levothyroxine 75 mcg p.o. daily
Hypertension:
Continue losartan 25 mg p.o. daily
Hyperlipidemia:
Continue atorvastatin 40 mg p.o. every evening
Chronic HFpEF:
Continue oral furosemide 40 mg p.o. daily
Continue ARB
History of SVT (per sister):
Continue amiodarone 200 mg p.o. daily
History of right subdural hematoma with craniotomy and history of traumatic brain injury
DVT prophylaxis:
SCDs
CODE STATUS:
Full code
Anticipated Discharge: Today
Subjective/Interval History
-
Date of Service: August 14, 2024
No new complaints. Alert and tolerating pain medications
Objective Data
-
Labs:
Laboratory Results
08/14/24
06:25
WBC 5.7
Hgb 14.9
Hct 42.4
Plt Count 166
Sodium Pending
Potassium Pending
Chloride Pending
Carbon Dioxide Pending
BUN Pending
Creatinine Pending
Glucose Pending
Calcium Pending
Vital Signs:
Vital Signs
Temp Pulse Resp BP Pulse Ox
97.6 F 69 16 148/84 95
08/14/24 07:00 08/14/24 08:14 08/14/24 08:14 08/14/24 07:00 08/14/24 08:14
I&O
08/13/24 08/14/24 08/15/24
06:59 06:59 06:59
Intake Total 360 / 360 720 / 720
Output Total 800 / 800 850 / 850
Balance -440 / -440 -130 / -130
[2024-08-14 09:01] LABS: Blood Urea Nitrogen 21 mg/dl (9-20); Calcium 9.1 mg/dl (8.4-10.2); Carbon Dioxide 22 mmol/L (22-30); Chloride 108 mmol/L (98-107); Estimated Creatinine Clearance 81 ml/min; Glucose 108 mg/dl (70-99); Potassium 4.2 mmol/L (3.5-5.1); Sodium 138 mmol/L (135-145); eGFR > 60.00
--- NOTE | 2024-08-14 10:33 | W.DCSUMMARY ---
Discharge Summary
Discharge Data
Date of Admission: 08/10/24
Date of Discharge: 08/14/24
Total time spent discharging patient (in min): 34
-
Pending Results: No
Hospital Course
Patient is 74 years old male with history of head trauma complicated by subdural hematoma in the past with craniotomy and seizures, Parkinson's, CVA, severe aortic valvular stenosis, diabetes mellitus, hypothyroidism, GERD, COPD, peripheral vascular
disease, ROS, anemia, presented to the for elective cardiac catheterization for scheduled TAVR and presented with acute onset of mental status changes and stroke alert was called. Neurology evaluated the patient. His mental status changes was felt
to be related to toxic metabolic encephalopathy in the setting of polypharmacy and hypertensive encephalopathy and no evidence of stroke and possible nonconvulsive seizures. MRI of the brain no acute intracranial abnormalities. He was back to his
baseline in terms of mental status. Patient had no evidence of active infection and remained afebrile. Patient did well rest of hospital stay. He had an x-ray of the back that showed no acute abnormalities but chronic changes. Pain medications
for his acute on chronic back pain were adjusted and he tolerated well during this hospitalization. PT OT recommending skilled facility but patient does not want halfway and he wants to return to [facility]-personal care.
customer engagement manager discussed with facility and they are able to accept him back. He will be discharged in relatively stable condition today.
Discharge duration: 34 minutes
Discharge Plan
-
Patient Disposition: Assisted Living
Discharge Diagnosis/Procedures: Possible nonconvulsive seizure. Acute metabolic encephalopathy. Acute on chronic back pain.
Condition: Fair
Diet: Regular
Activity: As tolerated
Driving Restrictions: No driving
Bathing Restrictions: OK to Shower
Blood Work: Please PCP to order CBC, BMP within 1 week
Other Services: VN and PT
Referrals:
Itz Kerr MD [Active, Neurology] - in two to four weeks
Shital Rogers DO [Family Provider, Family Practice] - in one week
Prescriptions:
New
losartan 25 mg Tablet
25 mg PO DAILY Qty: 30 1RF
oxycodone 5 mg Tablet
5 mg PO Q4HPRN PRN (Reason: Severe pain) Qty: 14 0RF
Continued
atorvastatin 40 mg Tablet
40 mg PO QPM
carbidopa-levodopa 50-200 mg Tablet Extended Release
2 tab PO HS
clopidogrel 75 mg Tablet
75 mg PO DAILY
magnesium oxide 400 mg (241.3 mg magnesium) Tablet
400 mg PO BID
magnesium hydroxide [Milk of Magnesia] 400 mg/5 mL Suspension
30 ml PO DAILY PRN (Reason: constipation) Qty: 0
Rx Instructions:
IF NO BM AFTER 3 DAYS
pantoprazole 40 mg Tablet,Delayed Release (Dr/Ec)
40 mg PO DAILY
budesonide 0.5 mg/2 mL Suspension For Nebulization
0.5 mg INHALATION BID
carbidopa-levodopa 25-100 mg Tablet
3 tab PO TID
insulin lispro 100 unit/mL Insulin Pen
0 unit SC .WITH MEALS
Rx Instructions:
with MEALS
Cerovite Senior 0.4 mg-300 mcg- 250 mcg Tablet
1 tab PO DAILY
tizanidine 2 mg Tablet
2 mg PO BID
primidone 250 mg Tablet
500 mg PO HS
furosemide 40 mg Tablet
40 mg PO DAILY
divalproex 500 mg Tablet,Delayed Release (Dr/Ec)
1,000 mg PO TID
levothyroxine 75 mcg Tablet
75 mcg PO DAILY
formoterol fumarate 20 mcg/2 mL Solution For Nebulization
2 ml INHALATION BID
acetaminophen 325 mg Tablet
650 mg PO Q4H PRN (Reason: pain/fever)
polyethylene glycol 3350 17 gram Powder In Packet
17 g PO DAILY PRN (Reason: constipation)
amiodarone 200 mg Tablet
200 mg PO DAILY
dextromethorphan-guaifenesin 10-100 mg/5 mL Syrup
10 ml PO Q4H PRN (Reason: prn)
bisacodyl [Dulcolax (bisacodyl)] 10 mg Suppository
10 mg IA DAILY PRN (Reason: constipation)
Fleet Enema 19-7 gram/118 mL Enema
118 ml IA PRN PRN (Reason: constipation)
Rx Instructions:
IF BISACODYL INEFFECTIVE
fluticasone propionate 50 mcg/actuation Harrells,Suspension
1 spray INTRANASAL HS
Yupelri 175 mcg/3 mL Solution For Nebulization
175 mcg INHALATION DAILY
cholecalciferol (vitamin D3) [Vitamin D3] 10 mcg (400 unit) Tablet
10 mcg PO DAILY
insulin glargine [Lantus Solostar U-100 Insulin] 100 unit/mL (3 mL) Insulin Pen
14 unit SC DAILY
Rx Instructions:
WITH BREAKFAST
docusate sodium 100 mg Capsule
100 mg PO BID PRN (Reason: CONSTIPATION)
Discontinued
tramadol 50 mg Tablet
50 mg PO BID PRN (Reason: PAIN)
Discharge Orders:
Discharge Patient (As Directed); Ordered 08/14/24
Ordered By: Joey Shaw
Discharge Date and Time
Print Language: SWEDISH
--- NOTE | 2024-08-14 10:47 | CM ---
CM reviewed chart, patient for discharge today. CM spoke with UBALDO Hill at facility, confirmed ability to accept patient back. CM spoke with patients sister, Klarissa, confirmed she will transport patient to facility. IMM verbally reviewed,
agreeable to discharge, placed in chart. Update to [facility] on patient discharge. CM will continue to follow for all discharge planning needs.
Plan; return to [facility] with Santiagosebastien FABI, sister to transport
[facility]
Report: [phone] (Liz/UBALDO)

[facility]
[2024-08-14 11:00] VITALS: BP 140/89
[2024-08-14 11:39] LABS: Glucose - Point of Care 146 mg/dl (70-99)
[2024-08-14 11:47] VITALS: BP 132/84; BP 139/85; PULSE 73
[2024-08-14 14:53] VITALS: BP 151/86
== END 2024-08-14 17:03 | disposition home health service (06) | DRG 100 ==
LOC: 4 WEST ACU 08:51
PROVIDERS: Emergency Medicine; Hospitalist; Physician Assistant Medical; ADMITTING PHYSICIAN Hospitalist; ATTENDING PHYSICIAN Hospitalist; CONSULT PHYSICIAN Psychiatry & Neurology Neurology; EMERGENCY PHYSICIAN Student in an Organized Health Care Education/Training Program; FAMILY PHYSICIAN Family Medicine
DX: G40.509 Epileptic seizures related to external causes, not intractable, without status epilepticus (principal); G92.8 Other toxic encephalopathy; I62.03 Nontraumatic chronic subdural hemorrhage; J69.0 Pneumonitis due to inhalation of food and vomit; I67.4 Hypertensive encephalopathy; I50.32 Chronic diastolic (congestive) heart failure; R68.0 Hypothermia, not associated with low environmental temperature; G89.29 Other chronic pain; M54.9 Dorsalgia, unspecified; I11.0 Hypertensive heart disease with heart failure; I73.9 Peripheral vascular disease, unspecified; E11.51 Type 2 diabetes mellitus with diabetic peripheral angiopathy without gangrene; I35.0 Nonrheumatic aortic (valve) stenosis; R00.0 Tachycardia, unspecified; J44.9 Chronic obstructive pulmonary disease, unspecified; G20.A1 Parkinson's disease without dyskinesia, without mention of fluctuations; L89.151 Pressure ulcer of sacral region, stage 1; E03.9 Hypothyroidism, unspecified; E78.5 Hyperlipidemia, unspecified; Z11.52 Encounter for screening for COVID-19; Z87.820 Personal history of traumatic brain injury; Z87.891 Personal history of nicotine dependence; Z79.899 Other long term (current) drug therapy; Z79.02 Long term (current) use of antithrombotics/antiplatelets
CPT/HCPCS: 70496; 70498; 70551; 71045; 72110; 80048; 80164; 81003; 81015; 82533; 82805; 82962; 83605; 84443; 84484; 85025; 85027; 86803; 87040; 87070; 87502; 87811; 92610; 93005; 94640; 95816; 97116; 97163; 97167; 99285; Q9967

== ENCOUNTER 2024-10-09 05:35 | Inpatient (IN) | payer MEDICARE, SELFPAY ==
[2024-10-04 13:07] VITALS: BMI 25.0
[2024-10-04 13:32] LABS: Hematocrit 37.9 % (39.0-52.0); Hemoglobin 13.1 g/dL (13.0-18.0); Mean Corp Hgb Conc. 34.6 g/dL (33.0-37.0); Mean Corpuscular Volume 96.4 fL (80.0-94.0); Nucleated Red Blood Cells % 0 % (-); Platelet Count 207 10^3/uL (130-400); Red Cell Dist. Width 13.9 % (11.5-14.5)
[2024-10-04 13:39] LABS: INR 1.07; PT 14.4 Sec (11.4-14.6)
[2024-10-04 13:50] LABS: Urine Character Clear (Clear)
[2024-10-04 13:58] LABS: ALT (SGPT) < 10 U/L (0-50); AST (SGOT) 20 U/L (17-59); Albumin 3.9 g/dl (3.5-5.0); Alkaline Phosphatase 101 U/L (38-126); Blood Urea Nitrogen 9 mg/dl (9-20); Calcium 9.1 mg/dl (8.4-10.2); Carbon Dioxide 26 mmol/L (22-30); Chloride 104 mmol/L (98-107); Estimated Creatinine Clearance 96 ml/min; Glucose 253 mg/dl (70-99); Potassium 4.3 mmol/L (3.5-5.1); Sodium 138 mmol/L (135-145); Total Protein 6.3 g/dl (6.3-8.2); eGFR > 60.00
--- NOTE | 2024-10-04 14:01 | CM ---
CM met w/ patient and sister, Klarissa during PATs for planned TAVR, 10/09.
Currently, patient is at [facility]. Pt. had sustained a fall on 09/28 and was sent to [facility] then to [facility].
Typically, he resides at [facility] in [place]. He normally resides alone in an apartment in assisted living. He receives assist w/ med management, meals and general housekeeping. He is normally ambulatory with use of a RW,
rollator, walking stick, SPC or wheelchair 'on bad days'. He has sustained x2 falls as of late.
The DC plan will be for return to [facility] for continued SNF.
Reviewed pre and post op routines.
Soap, shower instructions and TAVR booklet provided.
Reviewed post op restrictions to include lifting and driving restrictions.
Discussed post op MD appointment.
Plan for TAVR 10/09.
DC plan will be for return to [facility].
I did leave message for [facility] staff to return my call so that I can review pre/post op routines.
[2024-10-04 14:16] LABS: Glycohemoglobin (HgbA1c) 6.6 % (4.0-5.6)
--- NOTE | 2024-10-04 14:28 | HP.FOC2 ---
Focused History & Physical
Chief Complaint
HPI:
Chief Complaint: ARCE/SOB
HPI / Indication for Planned Procedure:
Mr. Donis is a pleasant 74 yom that has a complex past medical history significant for , Diabetes, CVA, HTN, SDH, PAD, Parkinson disease, hyperlipidemia, and COPD. He resides at [facility] in [place] and uses a walker for
ambulation. His sister Klarissa is his primary point of contact Mr. Donis was scheduled for a rhizotomy and needed cardiac clearance from his malt house operator. Due to his associated with worsened symptoms, he did not receive cardiac clearance and was
referred for a cardiac catheterization in preparation for possible TAVR. His echocardiogram from 05/11/2024 is notable for EF 60-65%, AV P/M 77/49, JULES 0.84, DI 0.28. pk Tutu. 4.38, Severe MAC, mild MS (MG 4), trivial TR. His cardiac catheterization
from today (06/06) demonstrated no obstructive CAD. From a symptomatology standpoint, he describes an increase in ARCE and LE edema. Discussed the pathophysiology and treatment options of including SAVR and TAVR. During Mr. Donis's TAVR
evaluation, he had an incidental finding on his appendix. This was discussed with primary malt house operator and patient's sister. Since that time patient was admitted to [facility] for change in mental status that had resolved. During his hospitalization, he
was seen by general surgery and they did not feel his appendix needed to be addressed immediately. The plan is to do TAVR first, followed by appendectomy, then Rhizotomy after he recovers.� Reviewed patient with heart team and the team recommended
26mm S3 Via right transfemoral access.Patient initially presented to [facility] for TAVR on 08/10/2024 and presented with acute onset of mental status changes and stroke alert was called. Neurology evaluated the patient. His mental status changes was
felt to be related to toxic metabolic encephalopathy in the setting of polypharmacy and hypertensive encephalopathy and no evidence of stroke and possible nonconvulsive seizures. MRI of the brain no acute intracranial abnormalities. He was back to
his baseline in terms of mental status. He was discharged to rehab and is now returning for TF TAVR
Relevant Past Medical History: Stroke and Other ((1) Fall: (2) Rib pain: (3) Low back pain: (4) Hypertension: (5) Hyperlipidemia: (6) Aortic stenosis: (7) PAD (peripheral artery disease): (8) Bipolar disorder: (9) Type 2 diabetes mellitus
with hyperglycemia: (10) Hypothyroidism: (11) GERD (gastroesophageal reflux disease): (12) Cerebrov)
Relevant Social History: Negative and Tobacco Use (former)
Relevant Family History: Negative
Relevant Past Surgical History: Positive for (cholecystectomy�����b/l knee sx�����b/l shoulder sx�����craniotomy�����cataract sx�����angioplasty of L common femoral artery w/ shockwave and IN.PACT balloons�����angioplasty of the left common iliac
artery with an 8mm Sandy balloon�����LOOP recorder, implanted and removed�����cerebral angiograph)
Review of Systems
Review of Pertinent Systems: All Systems Negative Except for the Following Positives (ARCE, Fatigue)
Medication
See Medication form for detailed medications: Yes
Medication List (including Herbals & OTC):
atorvastatin 40 mg tablet 40 mg PO QPM High Cholesterol 06/06/24
carbidopa 25 mg-levodopa 100 mg tablet 3 tab PO TID with meals 06/06/24
carbidopa ER 50 mg-levodopa 200 mg tablet,extended release 2 tab PO HS PARKINSONS 06/06/24
clopidogrel 75 mg tablet 75 mg PO QPM Blood Clot Prevention/Tx 06/06/24
divalproex 500 mg tablet,delayed release 1,000 mg PO TID Seizures 06/06/24
formoterol fumarate 20 mcg/2 mL solution for nebulization 2 ml inhalation BID COPD 06/06/24
insulin lispro 100 unit/mL subcutaneous pen 0 unit SC AC sliding scale 06/06/24
levothyroxine 75 mcg tablet 75 mcg PO DAILY Thyroid 06/06/24
magnesium hydroxide 400 mg/5 mL oral suspension (Milk of Magnesia) 30 ml PO DAILY PRN constipation ##0 06/06/24
magnesium oxide 400 mg (241.3 mg magnesium) tablet 400 mg PO BID 06/06/24
ktiyuqqk-ihi-mvsng acid 0.4 mg-lycopene 300 mcg-lutein 250 mcg tablet (Cerovite Senior) 1 tab PO DAILY Supplement 06/06/24
pantoprazole 40 mg tablet,delayed release 40 mg PO DAILY Gastrointestinal Issue 06/06/24
primidone 250 mg tablet 500 mg PO HS Seizures 06/06/24
tizanidine 2 mg tablet 2 mg PO BID Muscle Spasms 06/06/24
acetaminophen 325 mg tablet 650 mg PO Q4H PRN pain/fever 07/27/24
amiodarone 200 mg tablet 200 mg PO DAILY Arrhythmia 07/27/24
revefenacin 175 mcg/3 mL solution for nebulization (Yupelri) 175 mcg inhalation DAILY COPD 07/27/24
sodium phosphates 19 gram-7 gram/118 mL enema (Fleet Enema) 118 ml KY PRN PRN if dulcolax ineffective 07/27/24
cholecalciferol (vitamin D3) 10 mcg (400 unit) tablet (Vitamin D3) 10 mcg PO DAILY Supplement 08/09/24
docusate sodium 100 mg capsule 100 mg PO BID PRN CONSTIPATION 08/09/24
insulin glargine 100 unit/mL (3 mL) subcutaneous pen (Lantus Solostar U-100 Insulin) 14 unit SC DAILY Diabetes 08/09/24
acetaminophen 650 mg rectal suppository 650 mg KY Q4H PRN if unable to take PO 10/01/24
aluminum-mag hydroxide-simethicone 200 mg-200 mg-20 mg/5 mL oral susp 15 ml PO Q4H PRN upset stomach 10/01/24
amlodipine 2.5 mg tablet 2.5 mg PO DAILY 10/01/24
arformoterol 15 mcg/2 mL solution for nebulization 2 ml inhalation BID 10/01/24
benzonatate 100 mg capsule 100 mg PO Q8H PRN cough 10/01/24
bisacodyl 10 mg rectal suppository (Dulcolax (bisacodyl)) 10 mg KY DAILY PRN if MOM ineffective 10/01/24
budesonide 0.5 mg/2 mL suspension for nebulization 0.5 mg inhalation BID 10/01/24
calcium carbonate 500 mg PO Q4H PRN acid stomach 10/01/24
dextromethorphan-guaifenesin 10 mg-100 mg/5 mL oral syrup 5 ml PO Q4H PRN cough 10/01/24
furosemide 20 mg tablet 20 mg PO DAILY 10/01/24
guaifenesin 100 mg/5 mL oral liquid 200 mg PO Q4H PRN cough 10/01/24
levetiracetam 750 mg tablet 750 mg PO BID 10/01/24
loperamide 2 mg capsule (Imodium A-D) 2 mg PO Q4H PRN loose stools 10/01/24
ondansetron 4 mg disintegrating tablet 4 mg PO Q8H PRN N/V 10/01/24
polyethylene glycol 3350 17 gram oral powder packet (Miralax) 17 g PO DAILY PRN constipation 10/01/24
tizanidine 2 mg tablet 6 mg PO HS 10/01/24
Medications Reviewed: Yes
Allergies and Reactions
Patient has Allergies: Yes
Noted Allergies and Reactions:
Allergy/AdvReac Type Severity Reaction Status Date / Time
dulaglutide Allergy Thought to Verified 10/01/24 14:03
be drug
interaction
but
disproven
haloperidol (From Haldol) Allergy Unknown Verified 10/01/24 14:03
metformin Allergy Vomiting Verified 10/01/24 14:03
tiotropium (From Spiriva Allergy Coughing Verified 10/01/24 14:03
with HandiHaler)
Pertinent Physical Exam
All Other Systems: Negative
Head/Neck: Normal
Lungs: Normal
Heart: Other (III/ MELANI)
Extremities: Normal
Neurological: Other (cognitive impairment d/t previous TBI)
Diagnosis / Assessment
Aortic Stenosis symptomatic with ARCE and Fatigue
Plan / Procedure
TF TAVR planned for 7/[address] Vernon and Dr. Iqbal utilizing a 26mm S3
POD #1/#30 ECHO
Continue Plavix
t/c caridac rehab consult
T/c nurses educator consult
Anesthesia/Sedation to be done by Anesthesia Provider: Yes
Labs
-
Labs:
WBC 3.8 10^3/uL (4.8-10.8) L 10/04/24 11:39
RBC 3.93 10^6/uL (4.70-6.10) L 10/04/24 11:39
Hgb 13.1 g/dL (13.0-18.0) 10/04/24 11:39
Hct 37.9 % (39.0-52.0) L 10/04/24 11:39
Plt Count 207 10^3/uL (130-400) 10/04/24 11:39
Sodium 138 mmol/L (135-145) 10/04/24 11:39
Potassium 4.3 mmol/L (3.5-5.1) 10/04/24 11:39
Chloride 104 mmol/L (98-107) 10/04/24 11:39
Carbon Dioxide 26 mmol/L (22-30) 10/04/24 11:39
BUN 9 mg/dl (9-20) 10/04/24 11:39
Creatinine 0.7 mg/dL (0.7-1.3) 10/04/24 11:39
eGFR > 60.00 10/04/24 11:39
Glucose 253 mg/dl (70-99) H 10/04/24 11:39
Calcium 9.1 mg/dl (8.4-10.2) 10/04/24 11:39
Hqx-J-Bmeeycsfuvo Pept 223 pg/ml 10/04/24 11:39
Albumin 3.9 g/dl (3.5-5.0) 10/04/24 11:39
[2024-10-09] VITALS (14 sets, daily range): BP systolic 99–170; BP diastolic 56–96; BMI 25.0; BMI 25.1
--- NOTE | 2024-10-09 06:28 | W.CVOR.SURPR ---
CVOR Surgeon Immed Pre Op
-
I have examined this patient prior to performance of the scheduled procedure.
The patient's condition is unchanged from the time of the dictated/written History and
Physical and the patient is able to undergo the scheduled procedure.
--- NOTE | 2024-10-09 06:30 | PTCARENOTE ---
pt admitted into room 2262, VS and weight obtained. pt confirms 2 showers @ home and NPO since midnight except for medications with a sip of water this morning. admission questions and med rec completed. clip prep done. pt has extensive rash and
open areas to bilateral groins. MARYANNE John notified and at bedside to assess pt - notified Dr. Iqbal. no new orders. CHG wipes done. PIV placed to R A/C.
--- NOTE | 2024-10-09 07:04 | CM ---
pt in OR today, cm following
[2024-10-09 07:11] LABS: Glucose - Point of Care 120 mg/dl (70-99)
[2024-10-09] MEDS: ANCEF 10 IV ×2 (07:45→11:29)
--- NOTE | 2024-10-09 08:03 | W.PN.UPDATE ---
Update Note
Progress Note Update
GROIN RASH PRESENT ON ADMISSION
[2024-10-09 08:56] LABS: ACT-LR - POC 343 Seconds (116-155)
[2024-10-09 09:15] LABS: ACT-LR - POC 321 Seconds (116-155)
[2024-10-09 09:44] LABS: ACT-LR - POC 289 Seconds (116-155)
[2024-10-09 09:57] LABS: ACT-LR - POC 334 Seconds (116-155)
--- NOTE | 2024-10-09 10:16 | W.IMMPOSTOP ---
Addendum entered and electronically signed by Brenton Iqbal MD 10/09/24 10:44:
[id number]
Original Note:
Surgical Immed Post Op Note
-
STRUCTURAL HEART PROCEDURE NOTE: TAVR
Preoperative Dx:
Severe aortic stenosis (P/M: 77/49, JULES 0.84, DI 0.28, Terrazzo Layer Helper 4.38)
Mild mitral stenosis with severe MAC
Trivial TR
Single vessel, non-obstructive CAD
PVD w/ aortic-iliac disease w/ hx of claudication
Hx of CVA/TIA
SDH s/p fall
Parkinson's disease
Non-specific convulsions
[place] B/L (no hearing aides)
BPD
Depression/anxiety
COPD
HTN/HLD
ROS
COPD
Former tobacco abuse
DDD
pulmonary nodule
colon polyps
Hx of urinary incontinence/overactive bladder
ED
Chronic anemia
Postoperative Dx:
Same
[id number], combined systolic/diastolic CHF w/ elevated LVEDP (28mmHg)
Procedures:
1) L YARDING SUPERVISOR access w/ tactile, U/S, and fluoroscopic guidance, micropuncture technique, limited angiography, 6Fr sheath placement
2) L CFV access w/ U/S and fluoroscopic guidance, seldinger technique, 6Fr sheath placement
3) R YARDING SUPERVISOR access w/ tactile, U/S, and fluoroscopic guidance, micropuncture technique, limited angiography, 6Fr sheath placement
4) Placement of temporary RV pacing wire w/ threshold testing
5) Placement of pigtail catheter in RCC w/ limited angiography & confirmation of co-planar valve deployment angles
6) Placement of perclose sutures x 2 into R YARDING SUPERVISOR
7) Placement of 8Fr sheath in R YARDING SUPERVISOR
8) Serial dilation of R ileofemoral system w/ subsequent placement of Sanford E-sheath (systemic heparinization)
9) Wire purchase across stenotic AV (AL-1, soft-tip straight, LVEDP assessment, extra-stiff wire)
10) R TF TAVR w/ placement of 26mm NOAH 3 valve
11) Completion aortography
12) Completion TTE (mean gradient 5mmHg, trace PVL)
13) Removal of valve delivery system & Sanford E-sheath w/ R YARDING SUPERVISOR mgmt w/ perclose sutures x 2
14) Completion R ileofemoral angiography w/ plaque disruption noted at access site extending inferiorly (consultation w/ vascular surgery)
15) Wire purchase across lesion from contralateral groin
16) Balloon angioplasty of R YARDING SUPERVISOR x 2 (5min each)
17) Completion R ileofemoral angiography w/ significant improvement
18) Removal of temporary RV pacing wire
19) Removal of L YARDING SUPERVISOR 6Fr sheath w/ mgmt w/ 6Fr angioseal; manual pressure
20) Removal of L CFV 6Fr sheath w/ mgmt w/ manual pressure (protamine)
Inspector Conveyor Line:
Dr. Reddy Vernon
Cardiac Surgeon:
Dr. Brenton Iqbal
Vascular Surgeon:
Dr. Adrian Casas
Anesthesia:
MAC & local to B/L groins
Implants:
[employer] NOAH 3 valve; 26mm; SN [id number]; Model [id number]
Perclose x 2 to R YARDING SUPERVISOR
6Fr angioseal x 1 to L YARDING SUPERVISOR
Cath Data:
Start: 0812hrs, Deploy: 0856hrs, End: 1003hrs
FT: 26.5min, mGy: 520.72, DAP: 64.6583, Contrast: 130mL
Post-TTE: mean gradient 5mmHg, trace PVL
Complications:
Plaque disruption on device side (R YARDING SUPERVISOR) requiring balloon angioplasty
Condition:
Stable/guarded to recovery
[2024-10-09] MEDS: DESENEX/MITRAZOL/ZEASORB TOPICAL (10:22)
[2024-10-09] MEDS: VENTOLIN NEBULES INH (10:22)
[2024-10-09] MEDS: KEPPRA PO (10:22)
[2024-10-09] MEDS: PULMICORT INH (10:22)
[2024-10-09] MEDS: PROTONIX PO (10:22)
[2024-10-09] MEDS: DEPAKOTE (12 HR RELEASE) PO (10:22)
--- NOTE | 2024-10-09 10:39 | WOUNDNOTE ---
WON RN NOTE: Patient having TAVR unable to see patient, reviewed pictures taken by nurse this morning. Patient has B/L groin rash with redness and scattered small blisters. Suspect MASD and fungal rash. Spoke to nurses about recommended treatment
with Vashe soaks and dusting of fungal powder. Nurses stated that patient will have a sheath in groin post op and will not be able to apply above treatment there. Instructed nurse to avoid sheath area in groin and will follow up tomorrow. Will
update orders and care plan. Called [facility] for Vashe, supplies in patient's rm.
--- NOTE | 2024-10-09 10:43 | ITS.CL.TAVR ---
[place] Monitoring Technician - TAVR Report
TAVR PRocedure
Procedure Report:
TRANSCATHETER AORTIC VALVE REPLACEMENT
Date of Procedure: October 09, 2024
Referring: Dr. Reddy Lopes
Operators: Drs. Reddy Vernon and Brenton Iqbal
PROCEDURE PERFORMED:
1. Ultrasound guidance to obtain access in the left common femoral artery, left common femoral vein, and right common femoral artery. Separate images were stored in the permanent medical record
2. Successful placement of 26 mm Sanford Aneta S3 aortic valve via right common femoral approach.
3. The procedure was complicated by plaque disruption in the common femoral artery. Vascular surgery became involved and two prolonged balloon inflations were performed in the right common femoral artery using a 7.0 x 60 mm
PREPROCEDURE NYHA CLASS: 4
DESCRIPTION OF PROCEDURE: The patient was referred for assessment of severe symptomatic aortic stenosis and following a comprehensive evaluation it was felt that transcatheter aortic valve replacement (TAVR) would be the most appropriate treatment.
Informed consent was obtained prior to the procedure. A 'time-out' was called and the procedural plan was verbally confirmed by anesthesia, surgery, perfusion, and clinical laboratory technician staff.
Arterial access was obtained in the left common femoral artery using ultrasound guidance and micropuncture technique. A 6 Fr sheath was inserted. Ultrasound guidance was then utilized to gain access into the left common femoral vein and a 6 Fr
sheath was inserted. Attention was then turned to the right common femoral artery. Ultrasound guidance was utilized and access was obtained with placement of a 6 Libyan sheath. Angiography through the micropuncture sheath revealed appropriate
positioning of the arteriotomy for preclosure with 2 Perclose devices.
A transvenous pacemaker wire was then advanced from the left common femoral vein to the right ventricular apex where excellent pacing thresholds were obtained.
An angled pigtail catheter was then advanced through the left common femoral sheath and positioned in the proximal ascending thoracic aorta / right coronary cusp. Angiography was performed to define a coplanar angle facilitating positioning and
delivery of the TAVR device. HUNGARIAN 6 / CRA2 appear to be a reasonable coplanar angle.
Pre-closure of the right common femoral arteriotomy was then performed using 2 Perclose devices and was followed by placement of an 8 Fr arterial sheath.
An AL-1 catheter was then advanced to the proximal descending thoracic aorta over 0.035' J-tipped guidewire. An Amplatz Extra-Stiff wire was then advanced through the AL-1 catheter to the proximal descending thoracic aorta. The AL-1 catheter was
removed and the supportive wire was utilized to facilitate delivery of the Sanford eSheath and dilator. Heparin, 7,000 units, was administered and the ACT was monitored throughout the procedure.
The AL-1 catheter was then readvanced through the Sanford eSheath. The 0.035' stiff wire was allowed to drift across the aortic arch and the AL1 was positioned just above the aortic valve. The stenotic leaflets were probed with a Soft-tip Straight
wire. The aortic leaflets were crossed and the AL-1 catheter followed the Soft-tip Straight wire to the mid left ventricle. The wire was removed. Left ventricular end-diastolic pressures was measured at 28 mmHg.
An Amplatz Extra-Stiff wire with a generous curved tip was then advanced to the mid left ventricle. The AL-1 catheter was removed and the Amplatz wire was left in place in order to facilitate delivery of the Sanford delivery system. A 26 mm
Sanford ANETA S3 valve was brought to the table and the orientation of the valve on the balloon delivery system was confirmed by all operators. The ANETA S3 valve was advanced through the eSheath and into the proximal descending thoracic aorta.
The ANETA valve was centered on the delivery balloon and the entire system was retroflexed as across the aortic arch in an HUNGARIAN projection. The ANETA S3 delivery system was then advanced across the stenotic aortic leaflets. The pusher was
retracted. Angiography confirmed appropriate positioning of the valve and rapid pacing was undertaken. The 26 mm ANETA S3 valve was deployed during rapid pacing. Valve deployment was uneventful. Aortography following valve deployment suggested
trace aortic insufficiency while the wire was still across the valve in the left ventricle.
The post valve deployment transthoracic echocardiogram was notable for a mean aortic valve gradient of 5 mmHg with only trivial aortic insufficiency.
The Sanford valve delivery system was removed. The Sanford eSheath was removed and the Perclose knots were advanced to the arteriotomy site. Angiography after the Perclose knots were advanced to the arteriotomy site and demonstrated a significant
stenotic segment and haziness below the access site consistent with plaque disruption.
Vascular surgery was consulted and a Glidewire was advanced through a [place] catheter. Please refer to Dr. Casas's note for complete details. Ultimately, a 6 x 45 cm sheath was advanced over the iliac bifurcation and prolonged balloon
angioplasty was performed with a 7.0 x 60 mm Railway Track Plant Operator balloon with an improved angiographic appearance. No additional interventions were performed.
A 6 Libyan Angio-Seal was then utilized to obtain hemostasis in the left common femoral artery. The temporary pacemaker and 6 Fr sheath were removed and manual pressure was held over the 6 Libyan femoral venous access.
Protamine was administered to reverse the intravenous anticoagulant.
Fluoro Time: 26.5 min, Dose: 521 mGy, DAP : 64.7 gy.cm2
CONCLUSIONS:
1. Severe symptomatic aortic stenosis. Successful deployment of a 26 mm ANETA S3 valve with a post valve deployment gradient of 5 mmHg
2. The right common femoral arteriotomy was closed with 2 Perclose devices. There was significant plaque burden in the right common femoral artery and angiographic evidence of plaque disruption up to and distal to the femoral access site. Balloon
angioplasty was performed by Dr. Casas using a 7.0 x 60 mm Railway Track Plant Operator balloon. Prolonged balloon inflations x 2 were performed with significant angiographic improvement at the arteriotomy site
3. Successful closure of the left common femoral arteriotomy with a 6 Libyan Angio-Seal
Copy to: Dr. Reddy Lopes
[2024-10-09] MEDS: DILAUDID 0.25 MG IV ×3 (11:03→19:43)
--- NOTE | 2024-10-09 11:30 | PTCARENOTE ---
received patient from propagator laborer. drowsy but wakes up and moaning. SR with BBB. RA. groin sites stable. pulses palpable. moves all extremities. voice slurred but is baseline and patient not wearing his dentures. pupils equal and reactive. back pain.
see MAR for medication dosing. CC on patient. urinating clear yellow. will continue to monitor.
[2024-10-09] MEDS: ASPIRIN 325 MG PO (11:31)
[2024-10-09] MEDS: ROXICODONE 5 MG PO (11:41)
[2024-10-09] MEDS: SINEMET 25-100 3 TABLET PO ×2 (11:54→16:03)
[2024-10-09] MEDS: VENTOLIN NEBULES 2.5 MG INH ×3 (12:08→19:44)
[2024-10-09] MEDS: NOVOLOG FLEXPEN-MODERATE RESISTANCE SC (14:13)
[2024-10-09 14:17] LABS: Glucose - Point of Care 173 mg/dl (70-99)
--- NOTE | 2024-10-09 14:31 | PTCARENOTE ---
sat patient up. no further oozing/bleeding noted. medicated for back pain. resting comfortably now. replaced condom catheter.
[2024-10-09] MEDS: ANCEF 5 IV (16:03)
[2024-10-09] MEDS: DEPAKOTE (12 HR RELEASE) 1000 MG PO ×2 (16:03→22:37)
[2024-10-09] MEDS: LIPITOR 40 MG PO (18:41)
[2024-10-09] MEDS: ZANAFLEX 2 MG PO (19:30)
[2024-10-09] MEDS: KEPPRA 750 MG PO (19:36)
[2024-10-09] MEDS: PULMICORT 0.5 MG INH (19:44)
--- NOTE | 2024-10-09 19:50 | PTCARENOTE ---
Patient received from RN @ 1900. Patient sitting in chair w/ call shaw in reach. AOx3. NSR w/ BBB. BP 134/81 HR 86. Radial and pedal pulses present. Trace edema noted in ankles. Heart sounds audible. Lungs diminished bilaterally in bases.
POX 97% RA. IS 2000. No BM noted. Patient incontinent w/ condom catheter in use. Right groin puncture dressing intact w/ marked old drainage. Left groin puncture dressing dry and intact. Right PIV patent and intact. See Worklist and MAR for
details.
[2024-10-09 20:23] LABS: Glucose - Point of Care 193 mg/dl (70-99)
[2024-10-09] MEDS: NOVOLOG FLEXPEN-MODERATE RESISTANCE 1 UNITS SC (20:24)
[2024-10-09] MEDS: DESENEX/MITRAZOL/ZEASORB 1 APPLIC TOPICAL (20:26)
[2024-10-09] MEDS: ZANAFLEX 6 MG PO (22:36)
[2024-10-09] MEDS: SINEMET CR 50/200 (EXTENDED RELEASE) 2 TABLET PO (22:37)
[2024-10-09] MEDS: MYSOLINE 500 MG PO (22:37)
--- NOTE | 2024-10-09 23:36 | PTCARENOTE ---
Patient reassessed. Groin sites unchanged. NSR on monitor. VSS. See worklist for more details.
[2024-10-10] VITALS (16 sets, daily range): BP systolic 84–123; BP diastolic 50–93; PULSE 81; O2SAT 97; BMI 25.2
[2024-10-10] MEDS: ROXICODONE 2.5 MG PO (01:35)
--- NOTE | 2024-10-10 03:51 | W.PN.CT ---
Addendum entered and electronically signed by Brenton Iqbal MD 10/10/24 06:18:
I saw and examined the patient.
The PA's note was reviewed and I agree with the note.
Comment:
No overnight events, no rhythm issues, groins okay with exception of bilateral fungal rash being treated with miconazole powder
- Check echocardiogram today
- Continue aspirin/Plavix
- Plan discharge to SNF later today
Original Note:
Today's Communication / Plan
-
Plan:
-No major issues overnight. Hemodynamically and neurologically intact
-No drips
-Groins intact without significant hematoma, Vascular surgery following
-Noted preop bilateral fungal groin rash, wound care following
-Cont. current meds (ASA/Plavix)
-Will repeat echo today to reassess TAVR
-Has condom catheter given hx of urinary incontinence/overactive bladder, will d/c before discharge
-OOB into chair/Ambulate
-D/C to SNF @ [facility] given recent falls, lives @ [facility]
Assessment / Plan
-
Assessment:
-S/P R TF TAVR w/ placement of 26mm NOAH [address] Iqbal/Saulo, 10/09/24, pod#1
-Procedure complicated by plaque disruption noted at access site extending inferiorly S/P Balloon angioplasty of R TELEPHONE CLERK TELEGRAPH OFFICE x 2 (5min each), 10/09/[address] Casas of Vascular surgery
1. Severe aortic stenosis (P/M: 77/49, JULES 0.84, DI 0.28, [employer] Teacher 4.38).
2. Mild mitral stenosis with severe MAC.
3. Trivial tricuspid regurgitation.
4. Single vessel, non-obstructive coronary artery disease.
5. Peripheral vascular disease w/ aortic-iliac disease w/ history
of claudication.
6. History of CVA/TIA.
7. Subdural hematoma s/p fall.
8. Parkinson's disease.
9. Non-specific convulsions.
10. Hard of hearing B/L (no hearing aides).
11. Borderline personality disorder.
12. Depression/anxiety.
13. Chronic obstructive pulmonary disease.
14. Hypertension/Hyperlipidemia.
15. Obstructive sleep apnea.
16. Chronic obstructive pulmonary disease.
17. Former tobacco abuse.
18. Degenerative disc disease/chronic back pain
19. Pulmonary nodule.
20. Colon polyps.
21. History of urinary incontinence/overactive bladder.
22. Erectile dysfunction.
23. Chronic anemia
24. Bilateral groin rash/intertrigo
25. T2DM (A1C 6.6, on insulin @ home)
Discussed patient care with: Cardiology, Nursing, Respiratory Therapy, Pharmacy and Care Team
Subjective
Procedure
S/P R TF TAVR w/ placement of 26mm NOAH [address] Iqbal/Saulo, 10/09/24
-Procedure complicated by plaque disruption noted at access site extending inferiorly S/P Balloon angioplasty of R TELEPHONE CLERK TELEGRAPH OFFICE x 2 (5min each), 10/09/[address] Casas of Vascular surgery
-
Date of Service: October 10, 2024
Pt c/o mild incisional pain and chronic back pain, otherwise feels well
Objective Data
-
PT 14.4 Sec (11.4-14.6) 10/04/24 11:39
INR 1.07 10/04/24 11:39
Vital Signs
Vital Signs
Temp Pulse Resp BP Pulse Ox
98.7 F 75 18 99/56 96
10/09/24 23:16 10/09/24 23:15 10/09/24 23:16 10/09/24 23:00 10/09/24 23:16
CT Intake/Output/Weight
10/09/24 10/09/24 10/10/24
06:59 18:59 06:59
Output Total 600 / 750 150 / 750
Balance -600 / -750 -150 / -750
SaO2: 96 (RA)
Physical Exam
-
General: Awake, Oriented and AOx3
Cardiovascular: Regular rate & rhythm, No Murmurs, No Rub and No Gallop
Respiratory: Decreased Breath Sounds
Sternum: Stable
Incision: Clean, Dry, Intact and Dressing Intact
Extremities: Other (+trace edema)
Data Reviewed
-
Lab Results: Results Reviewed
Medications: Active Meds Reviewed
Chest X-Ray: Report Reviewed and Image Reviewed
ECG: Report Reviewed and Image Reviewed
[2024-10-10 04:25] LABS: Hematocrit 35.7 % (39.0-52.0); Hemoglobin 12.0 g/dL (13.0-18.0); Mean Corp Hgb Conc. 33.6 g/dL (33.0-37.0); Mean Corpuscular Volume 98.3 fL (80.0-94.0); Platelet Count 245 10^3/uL (130-400); Red Cell Dist. Width 14.4 % (11.5-14.5)
--- NOTE | 2024-10-10 04:32 | PTCARENOTE ---
Patient reassessed. Surgical sites unchanged. Labs drawn. EKG obtained. NSR on monitor. VSS.
[2024-10-10 04:51] LABS: Blood Urea Nitrogen 14 mg/dl (9-20); Calcium 9.2 mg/dl (8.4-10.2); Carbon Dioxide 29 mmol/L (22-30); Chloride 105 mmol/L (98-107); Estimated Creatinine Clearance 81 ml/min; Glucose 127 mg/dl (70-99); Magnesium 2.0 mg/dl (1.6-2.3); Potassium 4.8 mmol/L (3.5-5.1); Sodium 138 mmol/L (135-145); eGFR > 60.00
[2024-10-10] MEDS: SYNTHROID 75 MCG PO (05:33)
[2024-10-10] MEDS: ROXICODONE 5 MG PO (05:33)
[2024-10-10] MEDS: VENTOLIN NEBULES 2.5 MG INH ×2 (07:33→11:29)
[2024-10-10] MEDS: PULMICORT 0.5 MG INH (07:33)
[2024-10-10] MEDS: SPIRIVA RESPIMAT 2.5 MCG 2 PUFF INH (07:35)
--- NOTE | 2024-10-10 07:53 | PTCARENOTE ---
Assumed care of patient from welder/fabricator RN. aAO x 3 , very hard of hearing, groaning frequently. C/o lower back pain, states its chronic. SR on monitor. Room air 96%. RT groin with rash noted, area firm on palpation and painful to patient. No
drainage noted. CT PA notified and in to assess. Lt groin c,d,i. Pulses palpable. plan for day discussed.
[2024-10-10 08:08] LABS: Glucose - Point of Care 122 mg/dl (70-99)
[2024-10-10] MEDS: LOW STRENGTH ASPIRIN 81 MG PO (08:17)
[2024-10-10] MEDS: PROTONIX 40 MG PO (08:17)
[2024-10-10] MEDS: LANTUS 0.14 UNITS SC (08:17)
[2024-10-10] MEDS: NORVASC 2.5 MG PO (08:18)
[2024-10-10] MEDS: LASIX 20 MG PO (08:18)
[2024-10-10] MEDS: DEPAKOTE (12 HR RELEASE) 1000 MG PO (08:18)
[2024-10-10] MEDS: SINEMET 25-100 3 TABLET PO ×2 (08:18→11:31)
[2024-10-10] MEDS: ZANAFLEX 2 MG PO (08:18)
[2024-10-10] MEDS: KEPPRA 750 MG PO (08:18)
[2024-10-10] MEDS: PACERONE 200 MG PO (08:18)
[2024-10-10] MEDS: NOVOLOG FLEXPEN-MODERATE RESISTANCE SC (08:19)
[2024-10-10] MEDS: DESENEX/MITRAZOL/ZEASORB 1 APPLIC TOPICAL (08:19)
--- NOTE | 2024-10-10 10:49 | WOUNDNOTE ---
EILEEN RN NOTE: Followed up with patient while PT getting patient to stand from chair. Patient stood with one assist and walker. Gluteal cleft with fungal rash and b/l groin scrotal area. Suspect patient unable to clean self properly in skin folds and
keep dry. Today cleaned with Vashe moistened gauze, dried skin and then dusting of fungal powder. Avoided b/l groin sheath sites. R upper abdomen with fading fungal rash, applied light dusting of fungal powder. Heels are blanchable red and sacrum is
intact. Updated nurse on the above, will update care plan and discharge instructions. Will sign off unless needed.
--- NOTE | 2024-10-10 11:00 | WOUNDNOTE ---
BILATERAL GROIN/ABDOMEN
--- NOTE | 2024-10-10 11:08 | W.PN.CARDCBS ---
Today's Communication / Plan
-
Doing well status post TAVR
Continue aspirin, Plavix
Echo with stable valve
Plan for DC to SNF
Outpatient follow-up with [facility]
Impression / Plan
-
Primary Acquisition Specialist: Dr. Lopes of [facility]
Assessment:
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
Procedure complicated by plaque disruption noted at access site extending inferiorly s/p Balloon angioplasty of R CONTENT ENGINEER x 2 (5min each), 10/09/24
Mild mitral stenosis with severe MAC
Non-obstructive coronary artery disease by cath
Chronic RBBB
Peripheral vascular disease
History of CVA/TIA
Subdural hematoma s/p fall
Parkinson's disease
Non-specific convulsions
Hard of hearing B/L (no hearing aides)
Borderline personality disorder
Depression/anxiety
COPD
Hypertension
Hyperlipidemia
DM2
Obstructive sleep apnea
Former tobacco
DDD/chronic back pain
History of pulmonary nodule
History of urinary incontinence/overactive bladder
Chronic anemia
Bilateral groin rash/intertrigo
Echo 05/11/2024: EF 60 to 65%, severe with peak/mean gradient 77/49 mmHg, JULES 0.84 cm�, MAC with mild MS
Cardiac catheterization 06/06/2024 single-vessel nonobstructive coronary artery disease, severe
Echo 10/09/2024: EF 65 to 70%, mild concentric LVH, number 26 mm Sanford TAVR with no AR and peak/mean gradients 8/5 mmHg, no pericardial effusion
Echo 10/10/2024: EF 65 to 70%, mild concentric LVH, well-seated number 26 mm Sanford TAVR with peak/mean gradients 18/10 mmHg, no AR, normal pericardium
Plan:
- Patient status post right transfemoral TAVR with number 26 mm NOAH 3 valve on 10/09/2024. His procedure was complicated by plaque disruption at access site status post balloon angioplasty of right common femoral artery x 2 by vascular surgery
10/09/2024.
- He reports some right groin soreness, however both groin sites are soft, with dressings clean dry and intact
- Hemoglobin 12.0. Continue aspirin, Plavix
- In sinus rhythm on review of telemetry overnight. EKG 10/09 sinus rhythm with right bundle branch block, chronic. Continue amiodarone 200 mg daily
- Continue Norvasc 2.5 mg daily, Lasix 20 mg p.o. daily, Lipitor
- Plan for DC to SNF today
- Outpatient cardiac follow-up with [facility]
- Discussed with CT surgical PA, nursing
Progress Note - Acquisition Specialist
Subjective
Date of Service: October 10, 2024
Complains of back pain, which she states is chronic. Reports some mild right groin pain
Objective
Labs:
10/10/24 04:16
10/10/24 04:16
Labs
Hgb 12.0 g/dL (13.0-18.0) L 10/10/24 04:16
Hct 35.7 % (39.0-52.0) L 10/10/24 04:16
Plt Count 245 10^3/uL (130-400) 10/10/24 04:16
PT 14.4 Sec (11.4-14.6) 10/04/24 11:39
INR 1.07 10/04/24 11:39
Sodium 138 mmol/L (135-145) 10/10/24 04:16
Potassium 4.8 mmol/L (3.5-5.1) 10/10/24 04:16
BUN 14 mg/dl (9-20) 10/10/24 04:16
Creatinine 0.8 mg/dL (0.7-1.3) 10/10/24 04:16
Glucose 127 mg/dl (70-99) H 10/10/24 04:16
Vital Signs and I&O:
Vital Signs
Temp Pulse Resp BP Pulse Ox
98.8 F 80 18 118/66 96
10/10/24 07:50 10/10/24 08:30 10/10/24 07:50 10/10/24 08:05 10/10/24 08:59
Vital Signs
Temp Pulse Resp BP Pulse Ox
98.8 F 80 18 118/66 96
10/10/24 07:50 10/10/24 08:30 10/10/24 07:50 10/10/24 08:05 10/10/24 08:59
Intake & Output
10/08/24 10/09/24 10/10/24 10/11/24
07:59 07:59 07:59 07:59
Intake Total 400 / 400
Output Total 850 / 850 250 / 250
Balance -850 / -850 150 / 150
Physical Exam
Physical Exam
GEN: No distress, awake, alert, oriented x3. Sitting in chair
HEENT: supple, anicteric, mmm, EOMI
LUNGS: CTA bilaterally, no wheezes/rales
CV: Reg, S1/S2, 1/6 syst LSB
ABD: soft, BS+, NT/ND
EXT: No cyanosis, clubbing, edema
NEURO: Gross non-focal
SKIN: Warm, pink, dry. No rash. Bilateral groin sites soft. Right groin site mildly tender to palpation. Bilateral dressings clean dry and intact
[2024-10-10] MEDS: TYLENOL 650 MG PO (11:18)
[2024-10-10] MEDS: NOVOLOG FLEXPEN-MODERATE RESISTANCE 3 UNITS SC (11:42)
[2024-10-10 11:44] LABS: Glucose - Point of Care 200 mg/dl (70-99)
--- NOTE | 2024-10-10 12:00 | PTCARENOTE ---
Tolerated sitting oob in chair for 4 hours this am. Assist x 2 back to bed. Given tylenol for chronic back pain. VSS. Assessment otherwise unchanged from prior
--- NOTE | 2024-10-10 12:46 | W.DCSUMMARY ---
Discharge Summary
Discharge Data
Date of Admission: 10/09/24
Date of Discharge: 10/10/24
-
Pending Results: No
Hospital Course
Primary care physician: Shital Isaacs
Outpatient screening technician: Reddy Lopes
Inpatient consultants: VELMA
Procedures:
1. Right TF TAVR 23mm Sanford
2. Rt DOFFER Stent
Primary Diagnosis:
1.
Secondary Diagnoses:
Disection R DOFFER, DM, CVA, HTN, SDH s/p fall, PAD s/p L DOFFER angioplasty, Parkinsons, HLD, COPD, bipolar, ROS, aphasia/dysphagia, ambulatory dysfunction, YSLETA DEL SUR, shock wave L common femoral artery, MCA embolectomy, Urolift, OAB/incontinence, YSLETA DEL SUR. Admit
10/09 for Right TF TAVR
HPI: 74yo with known , admitted in July to Hospitalist service with acute mental status changes, Planned TAVR delayed at that time.
PMH significant for: DM, CVA, HTN, SDH s/p fall, PAD s/p L DOFFER angioplasty, Parkinsons, HLD, COPD, bipolar, ROS, aphasia/dysphagia, ambulatory dysfunction, YSLETA DEL SUR, shock wave L common femoral artery, MCA embolectomy, Urolift, OAB/incontinence, YSLETA DEL SUR.
Admit 10/09 for Right TF TAVR procedure completed.
Hospital course:
10/09 POD #0:.Pre LVEDP 28. EKG unchanged post-op.
10/10 POD #1: NSR; R groin US, no hematoma or pseudo, echo OK, MG 10 no AI; ASA + Plavix for new covered stent R DOFFER
Home medication changes: ASA 81mg q day
Discharge Plan
-
Patient Disposition: Alf/SNF
Discharge Diagnosis/Procedures: R TF TAVR #26mm sapien3, R common femoral artery stent (10/09/24)
Condition: Fair
Diet: Low Fat, Low Cholesterol and 2 Gram Sodium
Activity: As tolerated
Driving Restrictions: No driving for 1 week
Bathing Restrictions: OK to Shower
Others Tests: Please call Dr. Lopes's office to schedule 30-day follow up echo appointment
Other Services: Cardiac Rehab
Wound Care: No lotions, powders, or creams to puncture sites
Specialty Instructions: Weigh Daily- Call MD for wt gain/loss 3 lbs overnight/5 lbs in 1 week
Activity Restrictions/Additional Instructions:
Wound Care Instructions
B/L distal groins and gluteal cleft : clean with Vashe or soap and water (*Avoid Sheath insertion sites until healed) then dry and apply dusting of fungal powder bid
PLEASE CALL [facility] TO SCHEDULE YOUR FIRST VISIT WHEN YOU CLEARED BY PHYSICAL THERAPY AT [phone]
Referrals:
Shital Rogers DO [Family Provider, Family Practice]
Reddy Lopes DO [Affiliate, Cardiology]
Referral Note: Dr Lopes' office will call you with the follow up appt date/time in a few weeks.
NOTE: the NEW phone# for [facility] cardiology- [phone]
Prescriptions:
New
aspirin 81 mg Tablet,Chewable
81 mg PO DAILY Qty: 0 0RF
Continued
atorvastatin 40 mg Tablet
40 mg PO QPM
carbidopa-levodopa 50-200 mg Tablet Extended Release
2 tab PO HS
clopidogrel 75 mg Tablet
75 mg PO QPM
magnesium oxide 400 mg (241.3 mg magnesium) Tablet
400 mg PO BID
magnesium hydroxide [Milk of Magnesia] 400 mg/5 mL Suspension
30 ml PO DAILY PRN (Reason: constipation) Qty: 0
Rx Instructions:
IF NO BM AFTER 3 DAYS
pantoprazole 40 mg Tablet,Delayed Release (Dr/Ec)
40 mg PO DAILY
carbidopa-levodopa 25-100 mg Tablet
3 tab PO TID
insulin lispro 100 unit/mL Insulin Pen
0 unit SC AC
Rx Instructions:
101-150=5 units, 151-200=6 units, 201-250=7 units
Cerovite Senior 0.4 mg-300 mcg- 250 mcg Tablet
1 tab PO DAILY
tizanidine 2 mg Tablet
2 mg PO BID
primidone 250 mg Tablet
500 mg PO HS
divalproex 500 mg Tablet,Delayed Release (Dr/Ec)
1,000 mg PO TID
levothyroxine 75 mcg Tablet
75 mcg PO DAILY
formoterol fumarate 20 mcg/2 mL Solution For Nebulization
2 ml INHALATION BID
acetaminophen 325 mg Tablet
650 mg PO Q4H PRN (Reason: pain/fever)
amiodarone 200 mg Tablet
200 mg PO DAILY
Fleet Enema 19-7 gram/118 mL Enema
118 ml HI PRN PRN (Reason: if dulcolax ineffective)
Rx Instructions:
IF BISACODYL INEFFECTIVE
Yupelri 175 mcg/3 mL Solution For Nebulization
175 mcg INHALATION DAILY
cholecalciferol (vitamin D3) [Vitamin D3] 10 mcg (400 unit) Tablet
10 mcg PO DAILY
insulin glargine [Lantus Solostar U-100 Insulin] 100 unit/mL (3 mL) Insulin Pen
14 unit SC DAILY
Rx Instructions:
WITH BREAKFAST
docusate sodium 100 mg Capsule
100 mg PO BID PRN (Reason: CONSTIPATION)
acetaminophen 650 mg Suppository
650 mg HI Q4H PRN (Reason: if unable to take PO)
tizanidine 2 mg Tablet
6 mg PO HS
loperamide [Imodium A-D] 2 mg Capsule
2 mg PO Q4H PRN (Reason: loose stools)
polyethylene glycol 3350 [Miralax] 17 gram Powder In Packet
17 g PO DAILY PRN (Reason: constipation)
amlodipine 2.5 mg Tablet
2.5 mg PO DAILY
dextromethorphan-guaifenesin 10-100 mg/5 mL Syrup
5 ml PO Q4H PRN (Reason: cough)
guaifenesin 100 mg/5 mL Liquid
200 mg PO Q4H PRN (Reason: cough)
benzonatate 100 mg Capsule
100 mg PO Q8H PRN (Reason: cough)
bisacodyl [Dulcolax (bisacodyl)] 10 mg Suppository
10 mg HI DAILY PRN (Reason: if MOM ineffective)
budesonide 0.5 mg/2 mL Suspension For Nebulization
0.5 mg INHALATION BID
calcium carbonate 500 mg calcium (1,250 mg) Tablet,Chewable
500 mg PO Q4H PRN (Reason: acid stomach)
levetiracetam 750 mg Tablet
750 mg PO BID
furosemide 20 mg Tablet
20 mg PO DAILY
alum-mag hydroxide-simeth 200-200-20 mg/5 mL Suspension
15 ml PO Q4H PRN (Reason: upset stomach )
ondansetron 4 mg Tablet,Disintegrating
4 mg PO Q8H PRN (Reason: N/V)
arformoterol 15 mcg/2 mL Solution For Nebulization
2 ml INHALATION BID
Discharge Orders:
Discharge Patient (As Directed); Ordered 10/10/24
Ordered By: Ivan Edwards
Care Plan Goals
Care Plan Goals:
Problem: Readiness for enhanced knowledge related to diagnosis and treatment plan
Goal: Understand your diagnosis and treatment plan needs, including medications if applicable.
Instructions: Know your diagnosis, underlying causes and treatment plan options, including medications if applicable. Consult with your health care team to learn about your diagnosis and treatment plan, including medications if applicable.
Discharge Date and Time
Print Language: SLOVENIAN
--- NOTE | 2024-10-10 14:37 | PTCARENOTE ---
Discharge instructions given to patients sister. Report called to Jaclyn at [facility]. Assisted with dressing. INT and telemetry pack removed. Giovani lozano handed to pts sister. Wheeled to car by RN and assisted into car by RN.
[2024-10-10 14:51] LABS: Hepatitis C Antibody Negative (Negative)
[2024-10-10] MEDS: VENTOLIN NEBULES INH (15:34)
--- NOTE | 2024-10-10 16:45 | CM ---
sister drove pt back to [facility].
== END 2024-10-10 14:15 | DRG 266 ==
LOC: CVICU 05:35
PROVIDERS: Nurse Practitioner; ADMITTING PHYSICIAN Thoracic Surgery (Cardiothoracic Vascular Surgery); CONSULT PHYSICIAN Internal Medicine Cardiovascular Disease; FAMILY PHYSICIAN Family Medicine
PROC: 02RF38Z Replacement of Aortic Valve with Zooplastic Tissue, Percutaneous Approach (ICD-10-PCS; 2024-10-09)
DX: I35.0 Nonrheumatic aortic (valve) stenosis (principal); Z00.6 Encounter for examination for normal comparison and control in clinical research program; I50.43 Acute on chronic combined systolic (congestive) and diastolic (congestive) heart failure; I11.0 Hypertensive heart disease with heart failure; E11.51 Type 2 diabetes mellitus with diabetic peripheral angiopathy without gangrene; G20.A1 Parkinson's disease without dyskinesia, without mention of fluctuations; E78.5 Hyperlipidemia, unspecified; J44.9 Chronic obstructive pulmonary disease, unspecified; F31.9 Bipolar disorder, unspecified; E03.9 Hypothyroidism, unspecified; K21.9 Gastro-esophageal reflux disease without esophagitis; I34.2 Nonrheumatic mitral (valve) stenosis; I36.1 Nonrheumatic tricuspid (valve) insufficiency; I25.10 Atherosclerotic heart disease of native coronary artery without angina pectoris; R56.9 Unspecified convulsions; F60.3 Borderline personality disorder; F41.9 Anxiety disorder, unspecified; G47.33 Obstructive sleep apnea (adult) (pediatric); R91.1 Solitary pulmonary nodule; D64.9 Anemia, unspecified; N32.81 Overactive bladder; N52.9 Male erectile dysfunction, unspecified; L30.4 Erythema intertrigo; H91.93 Unspecified hearing loss, bilateral; Z79.02 Long term (current) use of antithrombotics/antiplatelets; Z79.4 Long term (current) use of insulin; Z79.899 Other long term (current) drug therapy; Z86.73 Personal history of transient ischemic attack (TIA), and cerebral infarction without residual deficits; Z87.820 Personal history of traumatic brain injury; Z87.891 Personal history of nicotine dependence
CPT/HCPCS: 33361; 36415; 37224; 71045; 71046; 80048; 80053; 81003; 82248; 82962; 83036; 83735; 83880; 85025; 85027; 85347; 85610; 86803; 86850; 86900; 86901; 87070; 93005; 93308; 93321; 93325; 93926; 94640; 97163; 97167; C1725; C1760; C1769; C1894; Q9967

== ENCOUNTER 2024-10-11 03:44 | Inpatient (IN) | payer MEDICARE, SELFPAY ==
[2024-10-10 23:27] VITALS: BMI 26.7
--- NOTE | 2024-10-10 23:28 | ED.GENMED ---
History of Present Illness
General
Chief Complaint: Heart Rate Problem
Time Seen by Provider: 10/10/24 23:28
Nursing documentation reviewed up to this point in time: agreed with
History of Present Illness
History of Present Illness:
74-year-old male brought to the ER by EMS for evaluation of fever and low heart rate noted at his care facility. Patient is 1 day status post TAVR. He reports feeling generally unwell. He denies chest pain or shortness of breath.
Prehospital personnel identified heart block and gave him 1 dose of atropine as his heart rate was in the 30s. He has subsequently been with a heart rate in the 40s along with improvement in his blood pressure. Patient does have a significant
prior history of memory loss and Parkinson's which may be influencing his ability to relate current relevant history. Per EMS sister who had been at the bedside noted him to be getting more confused throughout the evening. He did receive Tylenol
prior to arrival.
Phy Exam
Physical Exam
Physical Exam:
Patient is awake, alert, appears in no acute distress, PERRL, EOMI, no increased work of breathing, no JVD, heart bradycardic rate and rhythm, no murmurs or ectopy, lungs are clear to auscultation without wheezes rales or rhonchi, abdomen is soft
and nontender, small palpable hematoma with ecchymosis present right groin with dressing clean dry and intact, bilateral lower extremities with trace edema, 2+ DP pulses present symmetric, GCS is 14 due to confusion, moving all extremities
symmetrically without focal deficit
Sepsis
Sepsis Screening
Sepsis Assessment: Sepsis
Sepsis Screen
Sepsis Screen: Sepsis
Date: 10/11/24
Time: 03:28
Course
Orders/Labs/Results
Orders:
Orders
10/10/24 23:29
0.9% Sodium Chloride 250 ml [Nss] 250 ml IV BOLUS
Pulse Ox/cont/shift [RESP] Stat
Quantity: 1
10/10/24 23:30
Electrocardiogram (*1) Q3H
Reason for Study: Chest Pain
Cardiac Monitoring- Treatment ONCE
EKG- Treatment ONCE
CR Chest Portable - 1 View Urgent
Comment:
Reason For Exam: dyspnea
Reason Study Needs to be Portable: Patient Unstable
10/10/24 23:31
EKG [Electrocardiogram (*1)] Urgent
Reason for Study: Bradycardia / Tachycardia
EKG- Treatment ONCE
Urinalysis Reflex To Culture Urgent
Date Specimen was Collected: 10/11/24
Time Specimen was Collected: 00:04
10/10/24 23:44
Complete Blood Count/With Diff Urgent
Comprehensive Metabolic Panel Urgent
Lactate Level [Lactic Acid] Urgent
Magnesium Urgent
NT-proBNP Urgent
PTT Urgent
Prothrombin Time Urgent
Troponin I Q3H
Blood Culture Q30M
CORINA Source: Blood/Venous
Specimen Description:
10/11/24 00:05
Urine Microscopic Reflex Cult Urgent
10/11/24 00:22
CT Abd/pelvis W Iv Cont Urgent
Comment:
Reason For Exam: pain
10/11/24 00:52
Cardiothoracic Surgery Consult Urgent
Consulting Provider: Lucian Dimas
Was physician already notified: Yes
Reason for Consult: bradycardia, fever s/p TAVR
10/11/24 01:19
Blood Culture Q30M
CORINA Source: Blood/Venous
Specimen Description:
Cefepime HCl [Maxipime] 2,000 mg IV NOW STA
10/11/24 01:35
Vancomycin [Vancocin] 2,000 mg 0.9% Sodium Chloride 500 ml [Nss] 500 ml IV NOW
10/11/24 01:43
Sterile Water [Sterile Water For Injection] 10 ml .ROUTE .STK-MED ONE
10/11/24 02:30
Electrocardiogram (*1) Q3H
Reason for Study: Chest Pain
Troponin I Q3H
10/11/24 02:44
Acetaminophen [Tylenol] 1,000 mg PO NOW STA
10/11/24 03:00
Lidocaine [Lidocaine 4% Patch] 1 patch .ROUTE .STK-MED ONE
10/11/24 03:08
Admit/Transfer Patient As Directed
Co-Sign Provider:
Level of Care: Inpatient admission
Assign to:: IVU
Physician / Group: Pietro
Diagnosis: Heart Block, s/p TAVR, Fever
Reason for Hospitalization: Heart Block, s/p TAVR, Fever
Expected length of stay greater than two midnights?: Yes
ELOS- Estimated Length of Stay in days: 3
I certify the patient meets the requirements for IP care: Yes
PRN Pain Medication Management As Directed
May give lesser potent ordered pain med per pt: Yes
preference::
Protocol:: Medication orders for pain may be administered in a
manner that supports deferring to patient preference
when the pt is:
- Requesting an ordered lesser potent pain medication.
Least to most potent pain medications are defined
as: acetaminophen < NSAID < tramadol < opioids
(morphine, oxycodone, hydromorphone).
- Requesting a lesser dose of the same medication IF
ORDERED.
- Requesting a less intrusive route of administration
if both routes are prescribed by the provider (PO <
IV).
10/11/24 03:11
Code Status As Directed
Resuscitation Status: Full Code
10/11/24 03:15
COVID-19 Antigen Urgent
Source: Nasal Swab
Influenza A+B Rapid Molecular Urgent
CORINA Source: Nasal Swab
Specimen Description:
10/11/24 08:00
Lidocaine [Lidocaine 4% Patch] 1 patch TOPICAL DAILY
Apply Lidocaine patch(s) to:: back
Abnormal Lab Results
10/10/24 10/11/24
23:44 00:05
RBC 3.42 L 10^6/uL
(4.70-6.10)
Hgb 11.3 L g/dL
(13.0-18.0)
Hct 33.0 L %
(39.0-52.0)
MCV 96.5 H fL
(80.0-94.0)
MCH 33.0 H pg
(27.0-31.0)
Abs Immat Gran (auto) 0.1 H 10^3/uL
(0-0.05)
Absolute Monos (auto) 1.1 H 10^3/uL
(0.1-0.6)
Immature Gran % 0.8 H %
(0-0.5)
Monocytes % 16.9 H %
(1.7-9.3)
PT 14.7 H Sec
(11.4-14.6)
Sodium 132 L mmol/L
(135-145)
Glucose 198 H mg/dl
(70-99)
Troponin I 0.205 H* ng/ml
Total Protein 5.5 L g/dl
(6.3-8.2)
Albumin 3.3 L g/dl
(3.5-5.0)
Urine Albumin (Reflex) 1+ A
(Neg - Trace)
10/10/24 23:44
10/10/24 23:44
Troponin is elevated, not unexpected given recent procedure. White blood count very reassuring and normal. Kidney function preserved
Vital Signs
Initial and Last Documented VS:
Initial Vital Signs
Temp Pulse Resp BP Pulse Ox
98.9 F 44 16 120/51 98
10/10/24 23:31 10/10/24 23:31 10/10/24 23:31 10/10/24 23:31 10/10/24 23:31
Last Documented Vital Signs
Temp Pulse Resp BP Pulse Ox
99.6 F 40 12 139/75 97
10/11/24 02:56 10/11/24 02:45 10/11/24 02:45 10/11/24 02:40 10/11/24 02:45
MDM/Problems Addressed
Differential Diagnosis Includes:
Urinary tract infection, pneumonia, new arrhythmia, sepsis along with other etiologies considered
Chronic conditions affecting care:
Parkinson's, memory loss, diabetic neuropathy, back pain, congestive heart failure, peripheral arterial disease
*Radiology
Radiology exam reviewed: preliminary read by ED provider (I dependently viewed and interpreted portable chest x-ray showing normal cardiac silhouette, clear lungs) and radiology read reviewed (I reviewed radiology interpretation of CT abdomen and
pelvis showing no acute intra-abdominal process. Large stool burden concerning for constipation without evidence of fecal impaction. Postoperative changes. Compression fracture L1 and L2-chronic/age-indeterminate)
*Pulse Oximetry
SaO2: 96
Oxygen Mode of Delivery: Room air
Patient hypoxic: no
*EKG
Interpreted by ED Provider?: Yes (I independently viewed and interpreted twelve-lead EKG showing complete heart block, rate 44, left axis deviation, right bundle branch block, this is an abnormal tracing, new heart block compared to prior from
earlier today)
*General Neurologist Interpretation
Rate: bradycardiac (I independently viewed and interpreted rhythm strip showing complete heart block with a ventricular rate of 44)
*Critical Care Note
Total Time (30-74mins, 75-104mins- exclusive of procedures): Critical care statement:
comment:
Critical care statement: A total of 30 minutes of critical care time was provided for this patient. This includes management of unstable vital signs, evaluation of the patient at bedside, reviewing the patient's pertinent medical records, discussion
with consultants, review of old EKGs and review of pertinent medical records. This time with separate from time utilized to perform the aforementioned documented procedures
Data Reviewed
Review of Other/Old Records Reveals: Records (I reviewed discharge summary from physician senior agricultural assistant Pack dated 10/10/2024 including medication list)
Update Note
Update Note:
Shortly after patient arrival, I consulted cardiothoracic team who evaluated patient and were also able to speak with patient's sister who reported that patient was complaining of abdominal pain earlier today. CT scan is added. Please see their
consultation for further details.
Patient with stable blood pressure although persistent heart block and bradycardia. No additional medications administered for rate. Once all test results available, I reviewed this information with cardiothoracic surgery team along with family
members present at bedside and hospitalist. They are in agreement for plan for admission for further treatment of fever pending culture results and monitoring for new heart block status post TAVR.
ED Attending Note
-
Portions of this chart may have been created with voice recognition software.� Occasional wrong word or��sound alike� substitutions may have occurred due to the inherent limitations of voice recognition software.
Discharge Plan
Departure
Patient Disposition: Admit
Date of Disposition: 10/11/24
Time of Disposition: 02:49
Presentation/result/management discussed w/ accepting MD/DO: Hospitalist
Discharge Problem:
Fever, Bradycardia, Constipation
Prescriptions:
No Action
atorvastatin 40 mg Tablet
40 mg PO QPM
carbidopa-levodopa 50-200 mg Tablet Extended Release
2 tab PO HS
clopidogrel 75 mg Tablet
75 mg PO QPM
magnesium oxide 400 mg (241.3 mg magnesium) Tablet
400 mg PO BID
magnesium hydroxide [Milk of Magnesia] 400 mg/5 mL Suspension
30 ml PO DAILY PRN (Reason: constipation) Qty: 0
Rx Instructions:
IF NO BM AFTER 3 DAYS
pantoprazole 40 mg Tablet,Delayed Release (Dr/Ec)
40 mg PO DAILY
carbidopa-levodopa 25-100 mg Tablet
3 tab PO TID
insulin lispro 100 unit/mL Insulin Pen
0 unit SC AC
Rx Instructions:
101-150=5 units, 151-200=6 units, 201-250=7 units
Cerovite Senior 0.4 mg-300 mcg- 250 mcg Tablet
1 tab PO DAILY
tizanidine 2 mg Tablet
2 mg PO BID
primidone 250 mg Tablet
500 mg PO HS
divalproex 500 mg Tablet,Delayed Release (Dr/Ec)
1,000 mg PO TID
levothyroxine 75 mcg Tablet
75 mcg PO DAILY
formoterol fumarate 20 mcg/2 mL Solution For Nebulization
2 ml INHALATION BID
acetaminophen 325 mg Tablet
650 mg PO Q4H PRN (Reason: pain/fever)
amiodarone 200 mg Tablet
200 mg PO DAILY
Fleet Enema 19-7 gram/118 mL Enema
118 ml NE PRN PRN (Reason: if dulcolax ineffective)
Rx Instructions:
IF BISACODYL INEFFECTIVE
Yupelri 175 mcg/3 mL Solution For Nebulization
175 mcg INHALATION DAILY
cholecalciferol (vitamin D3) [Vitamin D3] 10 mcg (400 unit) Tablet
10 mcg PO DAILY
insulin glargine [Lantus Solostar U-100 Insulin] 100 unit/mL (3 mL) Insulin Pen
14 unit SC DAILY
Rx Instructions:
WITH BREAKFAST
docusate sodium 100 mg Capsule
100 mg PO BID PRN (Reason: CONSTIPATION)
acetaminophen 650 mg Suppository
650 mg NE Q4H PRN (Reason: if unable to take PO)
tizanidine 2 mg Tablet
6 mg PO HS
loperamide [Imodium A-D] 2 mg Capsule
2 mg PO Q4H PRN (Reason: loose stools)
polyethylene glycol 3350 [Miralax] 17 gram Powder In Packet
17 g PO DAILY PRN (Reason: constipation)
amlodipine 2.5 mg Tablet
2.5 mg PO DAILY
dextromethorphan-guaifenesin 10-100 mg/5 mL Syrup
5 ml PO Q4H PRN (Reason: cough)
guaifenesin 100 mg/5 mL Liquid
200 mg PO Q4H PRN (Reason: cough)
benzonatate 100 mg Capsule
100 mg PO Q8H PRN (Reason: cough)
bisacodyl [Dulcolax (bisacodyl)] 10 mg Suppository
10 mg NE DAILY PRN (Reason: if MOM ineffective)
budesonide 0.5 mg/2 mL Suspension For Nebulization
0.5 mg INHALATION BID
calcium carbonate 500 mg calcium (1,250 mg) Tablet,Chewable
500 mg PO Q4H PRN (Reason: acid stomach)
levetiracetam 750 mg Tablet
750 mg PO BID
furosemide 20 mg Tablet
20 mg PO DAILY
alum-mag hydroxide-simeth 200-200-20 mg/5 mL Suspension
15 ml PO Q4H PRN (Reason: upset stomach )
ondansetron 4 mg Tablet,Disintegrating
4 mg PO Q8H PRN (Reason: N/V)
arformoterol 15 mcg/2 mL Solution For Nebulization
2 ml INHALATION BID
aspirin 81 mg Tablet,Chewable
81 mg PO DAILY Qty: 0 0RF
Referrals:
Maksim Coleman MD [Family Provider, Family Practice]
Interventions
Interventions:
*Risk Screen - Suicide Last Done: 10/10/24 23:31
*General Assessment Last Done: 10/10/24 23:31
*Neglect/Abuse Screening Last Done: 10/10/24 23:31
*ED- Fall Risk Assessment Last Done: 10/10/24 23:31
*ED COVID-19 Vaccine History Last Done: 10/10/24 23:31
ED- Cardiac Assessment Last Done: 10/11/24 00:51
ED- Pulmonary Assessment Last Done: 10/11/24 00:51
Discharge Date and Time
Print Language: TUVALUAN
[2024-10-10 23:31] VITALS: BP 120/51
[2024-10-10] MEDS: NSS 250 IV (23:53)
[2024-10-11] VITALS (23 sets, daily range): BP systolic 107–167; BP diastolic 39–78; BMI 26.7; BMI 25.6
[2024-10-11 00:11] LABS: INR 1.09; PT 14.7 Sec (11.4-14.6)
[2024-10-11 00:12] LABS: APTT 31.6 Sec (23.4-35.0)
[2024-10-11 00:13] LABS: Hematocrit 33.0 % (39.0-52.0); Hemoglobin 11.3 g/dL (13.0-18.0); Mean Corp Hgb Conc. 34.2 g/dL (33.0-37.0); Mean Corpuscular Volume 96.5 fL (80.0-94.0); Nucleated Red Blood Cells % 0 % (-); Red Cell Dist. Width 14.2 % (11.5-14.5)
[2024-10-11 00:24] LABS: Urine Character Clear (Clear)
[2024-10-11 00:36] LABS: ALT (SGPT) < 10 U/L (0-50); AST (SGOT) 20 U/L (17-59); Albumin 3.3 g/dl (3.5-5.0); Alkaline Phosphatase 111 U/L (38-126); Blood Urea Nitrogen 18 mg/dl (9-20); Calcium 8.7 mg/dl (8.4-10.2); Carbon Dioxide 24 mmol/L (22-30); Chloride 103 mmol/L (98-107); Estimated Creatinine Clearance 81 ml/min; Glucose 198 mg/dl (70-99); Potassium 4.8 mmol/L (3.5-5.1); Sodium 132 mmol/L (135-145); Total Protein 5.5 g/dl (6.3-8.2); Troponin I 0.205 ng/ml; eGFR > 60.00
[2024-10-11 00:37] LABS: Magnesium 2.1 mg/dl (1.6-2.3)
--- NOTE | 2024-10-11 00:43 | CONSULT.CT ---
Consultation
-
Date/Time Consultation Requested: 10/11/24
Date/Time Consultation Performed: 10/11/24
Requesting Provider: DR. Lucian Dimas
Performing Provider: Naila OSULLIVAN for Brenton Iqbal MD
Reason for Consultation: Fever, CHB, abdominal pain s/p TAVR 10/09/24
Patient History
Physicians
Family Physician: Shital Plaza
Outpatient Stone Grader: Reddy Lopes
Inpatient Stone Grader: Reddy Vernon
History of Present Illness
Rasheed Donis is a 74-year-old male discharged this afternoon after right transfemoral TAVR #26 mm NOAH 3 and right common femoral artery stenting on 10/09/[address] Brenton Iqbal and Reddy Vernon. Patient's sister called earlier this
evening stating patient was being transferred back to [facility] from his nursing facility ([facility]) due to a Temp of 101F, a slow heart rate, and abdominal pain. TTE predischarge 10/10/24 reported AV mean gradient of 10 mmHg,
and no AI. Patient was discharged on aspirin and Plavix for the new stent. Patient resting in bed but complains of general abdominal tenderness and chronic back pain and feeling cold.
Past Medical History
Past Medical History: COPD (Not on home O2), CVA/TIA (Status post MCA embolectomy), HTN, Hypercholesterolemia, NIDDM (Insulin therapy), Psychiatric (Bipolar disorder) and Other (SDH s/p fall; Parkinson's; PAD status post left common femoral artery
angioplasty; overactive bladder/incontinence with history of UroLift; ambulatory dysfunction)
Past Surgical History
Past Surgical History: Other (Right transfemoral TAVR with right STORE HAND dissection and stent (10/09/2024))
Family History
Mother: N/A
Father: N/A
Social History
Alcohol: None
Drug: None
Tobacco: Former Smoker (Quit 09/2022)
Personal: Single
Living: [facility]
Employment: Retired
Allergies
Allergy/AdvReac Type Severity Reaction Status Date / Time
dulaglutide Allergy Thought to Verified 10/01/24 14:03
be drug
interaction
but
disproven
haloperidol (From Haldol) Allergy Unknown Verified 10/01/24 14:03
metformin Allergy Vomiting Verified 10/01/24 14:03
tiotropium (From Spiriva Allergy Coughing Verified 10/01/24 14:03
with HandiHaler)
tramadol AdvReac Unknown Pharmacy Verified 10/09/24 12:00
to Review
Home Medications
�Medication �Instructions �Recorded �Confirmed �Type
atorvastatin 40 mg tablet 40 mg PO QPM High Cholesterol 06/06/24 10/09/24 History
carbidopa 25 mg-levodopa 100 mg 3 tab PO TID with meals 06/06/24 10/09/24 History
tablet
carbidopa ER 50 mg-levodopa 200 mg 2 tab PO HS PARKINSONS 06/06/24 10/09/24 History
tablet,extended release
clopidogrel 75 mg tablet 75 mg PO QPM Blood Clot 06/06/24 10/09/24 History
Prevention/Tx
divalproex 500 mg tablet,delayed 1,000 mg PO TID Seizures 06/06/24 10/09/24 History
release
formoterol fumarate 20 mcg/2 mL 2 ml inhalation BID COPD 06/06/24 10/09/24 History
solution for nebulization
insulin lispro 100 unit/mL 0 unit SC AC sliding scale 06/06/24 10/09/24 History
subcutaneous pen
levothyroxine 75 mcg tablet 75 mcg PO DAILY Thyroid 06/06/24 10/09/24 History
magnesium hydroxide 400 mg/5 mL 30 ml PO DAILY PRN constipation ##0 06/06/24 10/01/24 History
oral suspension (Milk of Magnesia)
magnesium oxide 400 mg (241.3 mg 400 mg PO BID Supplement 06/06/24 10/09/24 History
magnesium) tablet
ymqjomte-njv-cipgo acid 0.4 1 tab PO DAILY Supplement 06/06/24 10/09/24 History
mg-lycopene 300 mcg-lutein 250 mcg
tablet (Cerovite Senior)
pantoprazole 40 mg tablet,delayed 40 mg PO DAILY Gastrointestinal 06/06/24 10/09/24 History
release Issue
primidone 250 mg tablet 500 mg PO HS Seizures 06/06/24 10/09/24 History
tizanidine 2 mg tablet 2 mg PO BID Muscle Spasms 06/06/24 10/09/24 History
acetaminophen 325 mg tablet 650 mg PO Q4H PRN pain/fever 07/27/24 10/09/24 History
amiodarone 200 mg tablet 200 mg PO DAILY Arrhythmia 07/27/24 10/09/24 History
revefenacin 175 mcg/3 mL solution 175 mcg inhalation DAILY COPD 07/27/24 10/09/24 History
for nebulization (Yupelri)
sodium phosphates 19 gram-7 118 ml NJ PRN PRN if dulcolax 07/27/24 10/01/24 History
gram/118 mL enema (Fleet Enema) ineffective
cholecalciferol (vitamin D3) 10 10 mcg PO DAILY Supplement 08/09/24 10/09/24 History
mcg (400 unit) tablet (Vitamin D3)
docusate sodium 100 mg capsule 100 mg PO BID PRN CONSTIPATION 08/09/24 10/01/24 History
insulin glargine 100 unit/mL (3 14 unit SC DAILY Diabetes 08/09/24 10/09/24 History
mL) subcutaneous pen (Lantus
Solostar U-100 Insulin)
acetaminophen 650 mg rectal 650 mg NJ Q4H PRN if unable to 10/01/24 10/01/24 History
suppository take PO
aluminum-mag hydroxide-simethicone 15 ml PO Q4H PRN upset stomach 10/01/24 10/01/24 History
200 mg-200 mg-20 mg/5 mL oral susp
amlodipine 2.5 mg tablet 2.5 mg PO DAILY Blood Pressure 10/01/24 10/09/24 History
arformoterol 15 mcg/2 mL solution 2 ml inhalation BID Lung/Breathing 10/01/24 10/09/24 History
for nebulization Issues
benzonatate 100 mg capsule 100 mg PO Q8H PRN cough 10/01/24 10/01/24 History
bisacodyl 10 mg rectal suppository 10 mg NJ DAILY PRN if MOM 10/01/24 10/01/24 History
(Dulcolax (bisacodyl)) ineffective
budesonide 0.5 mg/2 mL suspension 0.5 mg inhalation BID 10/01/24 10/09/24 History
for nebulization Lung/Breathing Issues
calcium carbonate 500 mg PO Q4H PRN acid stomach 10/01/24 10/01/24 History
dextromethorphan-guaifenesin 10 5 ml PO Q4H PRN cough 10/01/24 10/01/24 History
mg-100 mg/5 mL oral syrup
furosemide 20 mg tablet 20 mg PO DAILY Fluid 10/01/24 10/09/24 History
Retention/Swelling
guaifenesin 100 mg/5 mL oral liquid 200 mg PO Q4H PRN cough 10/01/24 10/01/24 History
levetiracetam 750 mg tablet 750 mg PO BID Seizures 10/01/24 10/09/24 History
loperamide 2 mg capsule (Imodium 2 mg PO Q4H PRN loose stools 10/01/24 10/01/24 History
A-D)
ondansetron 4 mg disintegrating 4 mg PO Q8H PRN N/V 10/01/24 10/01/24 History
tablet
polyethylene glycol 3350 17 gram 17 g PO DAILY PRN constipation 10/01/24 10/01/24 History
oral powder packet (Miralax)
tizanidine 2 mg tablet 6 mg PO HS Muscle Spasms 10/01/24 10/09/24 History
aspirin 81 mg chewable tablet 81 mg PO DAILY #0 tabs 10/10/24 Rx
Review of Systems
-
History Source: Patient and Family (Sister Klarissa Yates (POA))
General: Reports Fever and Fatigue
HEENT: Reports No Symptoms
Respiratory: Reports No Symptoms
Cardiac: Reports No Symptoms
Abdomen/GI: Reports Abdominal Pain (Generalized)
: Reports Incontinence (Chronic)
Musculoskeletal: Reports No Symptoms
Skin: Reports Rash (Bilateral groin excoriation-present on admission 10/09/24)
Neurological: Reports CVA and Dizzy
Vascular: Reports No Symptoms
Physical Exam
Vital Signs
Temp 98.9 F 10/10/24 23:31
Temp route: Oral 10/10/24 23:31
Pulse 43 10/11/24 00:15
Resp Rate 18 10/11/24 00:15
Blood pressure 134/52 10/11/24 00:00
Blood pressure extremity used: Left upper arm 10/10/24 23:31
Position: Lying 10/10/24 23:31
MAP (cuff-Brannon Monitor) 74 10/11/24 00:00
SaO2 96 10/11/24 00:15
Oxygen Mode of Delivery Room air 10/10/24 23:31
Can the patient verbally communicate their pain? Yes 10/10/24 23:31
Actual Weight 81.9 kg 10/10/24 23:27
Body Mass Index (BMI) 26.7 10/10/24 23:27
Labs
10/10/24 23:44
10/10/24 23:44
PT 14.7 Sec (11.4-14.6) H 10/10/24 23:44
APTT 31.6 Sec (23.4-35.0) 10/10/24 23:44
Troponin I 0.205 ng/ml H* 10/10/24 23:44
Lgp-B-Yoqcsdhnaal Pept 538 pg/ml 10/10/24 23:44
Urinalysis
Urine Color Yellow 10/11/24 00:05
Urine Clarity Clear (Clear) 10/11/24 00:05
Urine pH 6.0 (5.0-9.0) 10/11/24 00:05
Ur Specific [place] 1.010 (<1.030) 10/11/24 00:05
Urine Ketones Negative (Negative) 10/11/24 00:05
Ur Occult Blood Reflex Negative (Negative) 10/11/24 00:05
Urine Bilirubin Negative (Negative) 10/11/24 00:05
Leukocyte Esterase Rfl Negative (Negative) 10/11/24 00:05
Urine Glucose Negative (Negative) 10/11/24 00:05
Urine Albumin (Reflex) 1+ (Neg - Trace) A 10/11/24 00:05
Exam
General: Fever
HEENT: Normocephalic, Anicteric, Moist Mucous Membranes, Atraumatic and PERRLA
Neck: Trachea Midline
Respiratory: Clear
Cardiac: S1/S2, Irregular Rhythm and Other (Heart rate 42/complete heart block on monitoring engineer)
GI: Tender (Generalized)
Rectal: Deferred by Provider
Skin: Warm, Dry and Rash (Bilateral groin excoriation)
Neuro: AO x 3 and Nonfocal/Grossly Intact
Extremities: Other (Bilateral groin sites soft without hematoma, bleeding, or bruit)
Lymph: No Lymphadenopathy
Psych: Calm
Assessment / Plan
-
74-year-old male readmitted with fever, complete heart block, abdominal pain status post right transfemoral TAVR and right common femoral artery stenting on 10/09/2024
- CT abdomen/pelvis to r/o retroperitoneal bleed
- no leukocytosis present on morning CBC prior to DC
- hold Amlodipine
- consult [facility] cardiology for pacer evaluation
Data Reviewed
-
EKG: Report Reviewed by me and Discussed with Physician
Labs: Labs Reviewed by me and Discussed with Physician
Old Records: Reviewed
[2024-10-11 00:46] LABS: Urine Red Blood Cell None Seen /HPF (0-2)
[2024-10-11 00:58] LABS: Platelet Count 228 10^3/uL (130-400)
[2024-10-11] MEDS: MAXIPIME 2000 MG IV (02:50)
[2024-10-11] MEDS: VANCOCIN 540 MG IV (02:50)
[2024-10-11] MEDS: LIDOCAINE 4% PATCH 1 PATCH TOPICAL ×2 (03:11→08:09)
--- NOTE | 2024-10-11 03:15 | HPS.HSE ---
Family Physician
-
Family Physician: Maksim Coleman
Chief Complaint
-
Fever, Abdominal Discomfort
History of Present Illness
Patient is a 74y M with PMH significant for ASCVD, seizure disorder, Parkinson's disease and recent hospitalization for TAVR and R common femoral stenting who presents to ED for evaluation of fever and abdominal discomfort. History obtained
from patient and family at the bedside. Patient underwent TAVR and R common femoral stenting on 10/09. He was discharged this afternoon around 3 PM. states that he began to complain of lower abdominal discomfort after dinner this evening. NH
staff checked his vitals around 9PM and noted him to have fever to 101.1, heart rate in the 40s and BP = 99/70. Patient was transferred to the ED for further evaluation.
No recent sore throat, cough, chest pain, N/V/D or urinary complaints.
Patient / family note that he has not moved his bowels in several days.
In the ED, he complains primarily of his back pain - which is chronic and unchanged.
He was seen by CT Surgery in the ED. Groin sites are well-appearing. CT scan was done showing no hematoma, collection, etc. There is note made of large stool burden.
Patient is afebrile here in the ED thus far.
He is noted to have bradycardia with heart rates primarily in the 40s and intermittent periods of complete heart block on monitor. During my visit he entered R in the 90s.
Medical History
Past Medical History
Past Medical History: Reports Other
Additional Past Medical History:
Traumatic Brain Injury
Traumatic Right Frontoparietal Subdural Hematoma s/p Craniotomy and Embolization
Occipital Stroke
Seizure Disorder
PAD s/p Left Common Iliac and Left Common Femoral Artery Angioplasty
Hyperlipidemia
Diabetes Mellitus, Type II
Severe Aortic Stenosis
Unknown Arrhythmia
COPD
Obstructive Sleep Apnea
Parkinson's Disease
Hypothyroidism
Anxiety / Depression
GERD
Past Surgical History: Reports Other
Additional Past Surgical History:
TAVR / R Common Femoral Stent (10/09/24)
Craniotomy
MCA Embolization
Cholecystectomy
Bilateral Shoulder Surgery
Social History
Tobacco: Former Smoker (>50 pack year history - Quit about 2 years ago)
Alcohol: None
Family History
Family History: Not pertinent
Allergies / Home Medications
Allergies reflects when Allergies were last updated in [employer].
Home Medications with original date entered in [employer]
Allergy/Medication List:
Allergies
Allergy/AdvReac Type Severity Reaction Status Date / Time
dulaglutide Allergy Thought to Verified 10/11/24 01:37
be drug
interaction
but
disproven
haloperidol (From Haldol) Allergy Unknown Verified 10/11/24 01:37
metformin Allergy Vomiting Verified 10/11/24 01:37
tiotropium (From Spiriva Allergy Coughing Verified 10/11/24 01:37
with HandiHaler)
tramadol AdvReac Unknown Pharmacy Verified 10/11/24 01:37
to Review
Home Medications
atorvastatin 40 mg tablet 40 mg PO QPM High Cholesterol 06/06/24
carbidopa 25 mg-levodopa 100 mg tablet 3 tab PO TID with meals 06/06/24
carbidopa ER 50 mg-levodopa 200 mg tablet,extended release 2 tab PO HS PARKINSONS 06/06/24
clopidogrel 75 mg tablet 75 mg PO QPM Blood Clot Prevention/Tx 06/06/24
divalproex 500 mg tablet,delayed release 1,000 mg PO TID Seizures 06/06/24
formoterol fumarate 20 mcg/2 mL solution for nebulization 2 ml inhalation BID COPD 06/06/24
insulin lispro 100 unit/mL subcutaneous pen 0 unit SC AC sliding scale 06/06/24
levothyroxine 75 mcg tablet 75 mcg PO DAILY Thyroid 06/06/24
magnesium hydroxide 400 mg/5 mL oral suspension (Milk of Magnesia) 30 ml PO DAILY PRN constipation ##0 06/06/24
magnesium oxide 400 mg (241.3 mg magnesium) tablet 400 mg PO BID Supplement 06/06/24
pzaduzvs-fjk-sgqvm acid 0.4 mg-lycopene 300 mcg-lutein 250 mcg tablet (Cerovite Senior) 1 tab PO DAILY Supplement 06/06/24
pantoprazole 40 mg tablet,delayed release 40 mg PO DAILY Gastrointestinal Issue 06/06/24
primidone 250 mg tablet 500 mg PO HS Seizures 06/06/24
tizanidine 2 mg tablet 2 mg PO BID Muscle Spasms 06/06/24
acetaminophen 325 mg tablet 650 mg PO Q4H PRN pain/fever 07/27/24
amiodarone 200 mg tablet 200 mg PO DAILY Arrhythmia 07/27/24
revefenacin 175 mcg/3 mL solution for nebulization (Yupelri) 175 mcg inhalation DAILY COPD 07/27/24
sodium phosphates 19 gram-7 gram/118 mL enema (Fleet Enema) 118 ml IA PRN PRN if dulcolax ineffective 07/27/24
cholecalciferol (vitamin D3) 10 mcg (400 unit) tablet (Vitamin D3) 10 mcg PO DAILY Supplement 08/09/24
docusate sodium 100 mg capsule 100 mg PO BID PRN CONSTIPATION 08/09/24
insulin glargine 100 unit/mL (3 mL) subcutaneous pen (Lantus Solostar U-100 Insulin) 14 unit SC DAILY Diabetes 08/09/24
acetaminophen 650 mg rectal suppository 650 mg IA Q4H PRN if unable to take PO 10/01/24
aluminum-mag hydroxide-simethicone 200 mg-200 mg-20 mg/5 mL oral susp 15 ml PO Q4H PRN upset stomach 10/01/24
amlodipine 2.5 mg tablet 2.5 mg PO DAILY Blood Pressure 10/01/24
arformoterol 15 mcg/2 mL solution for nebulization 2 ml inhalation BID Lung/Breathing Issues 10/01/24
benzonatate 100 mg capsule 100 mg PO Q8H PRN cough 10/01/24
bisacodyl 10 mg rectal suppository (Dulcolax (bisacodyl)) 10 mg IA DAILY PRN if MOM ineffective 10/01/24
budesonide 0.5 mg/2 mL suspension for nebulization 0.5 mg inhalation BID Lung/Breathing Issues 10/01/24
calcium carbonate 500 mg PO Q4H PRN acid stomach 10/01/24
dextromethorphan-guaifenesin 10 mg-100 mg/5 mL oral syrup 5 ml PO Q4H PRN cough 10/01/24
furosemide 20 mg tablet 20 mg PO DAILY Fluid Retention/Swelling 10/01/24
guaifenesin 100 mg/5 mL oral liquid 200 mg PO Q4H PRN cough 10/01/24
levetiracetam 750 mg tablet 750 mg PO BID Seizures 10/01/24
loperamide 2 mg capsule (Imodium A-D) 2 mg PO Q4H PRN loose stools 10/01/24
ondansetron 4 mg disintegrating tablet 4 mg PO Q8H PRN N/V 10/01/24
polyethylene glycol 3350 17 gram oral powder packet (Miralax) 17 g PO DAILY PRN constipation 10/01/24
tizanidine 2 mg tablet 6 mg PO HS Muscle Spasms 10/01/24
aspirin 81 mg chewable tablet 81 mg PO DAILY #0 tabs 10/10/24
Review of Systems
-
History Source: Patient and Family
A 12 point ROS was completed and negative except as noted: Yes
Constitutional: Reports Fever and Fatigue; Denies Chills
EENT: Denies Sore Throat
Respiratory: Denies Cough or Trouble Breathing
Cardiac: Denies Chest Pain or Palpitations
Abdomen/GI: Reports Abdominal Pain and Constipated; Denies Nausea, Vomiting or Diarrhea
: Denies Dysuria or Frequency
Musculoskeletal: Reports Other (Back Pain - chronic.); Denies Edema
Neurological: Denies Dizzy or Headache
Psych: Denies Depression or Anxiety
Physical Exam
Vital Signs
Vital Signs
Temp Pulse Resp BP Pulse Ox
99.6 F 40 12 139/75 97
10/11/24 02:56 10/11/24 02:45 10/11/24 02:45 10/11/24 02:40 10/11/24 02:45
Physical Exam
General: Other (74y M in mild distress due to back pain.)
HEENT: Moist mucous membranes and PERRLA
Respiratory: Clear; No Wheezes, Rales or Rhonchi
Cardiac: S1/S2, Irregular Rhythm and Bradycardia
GI: Other (Soft, mild lower abdominal tenderness without rebound or guarding.)
Musculoskeletal: No Clubbing, No Cyanosis and Other (1+ LE edema - much improved from prior per family.)
Neuro: AO x 3
Laboratory Results
-
10/10/24 23:44
10/10/24 23:44
Laboratory Results
PT 14.7 Sec (11.4-14.6) H 10/10/24 23:44
INR 1.09 10/10/24 23:44
APTT 31.6 Sec (23.4-35.0) 10/10/24 23:44
Lactic Acid 1.8 mmol/L (0.7-2.0) 10/10/24 23:44
Total Bilirubin 0.4 mg/dl (0.2-1.3) 10/10/24 23:44
AST 20 U/L (17-59) 10/10/24 23:44
ALT < 10 U/L (0-50) 10/10/24 23:44
Alkaline Phosphatase 111 U/L (38-126) 10/10/24 23:44
Troponin I 0.205 ng/ml H* 10/10/24 23:44
Impression/Plan
-
A/P: Patient is a 74y M with PMH significant for ASCVD, seizure disorder and Parkinsonism who is s/p TAVR and R common femoral stent on 10/09 and who presents to ED complaining of fever, bradycardia and abdominal pain.
Heart Block / Bradycardia
- Admit to IVU for further evaluation and treatment.
- Variable heart block with period of complete block appreciated on telemetry.
- Rates mostly in the 40s - appears to be in NSR at present.
- Hold amiodarone for now.
- Cardiology evaluation for additional recommendations / ? PPM placement.
Fever
- ? Post-op fever 24 hours or so after recent procedure / surgery.
- Mild lower abdominal discomfort and constipation (see below).
- No other evidence of acute infectious process.
- Patient is afebrile here without leukocytosis, etc.
- Received initial doses of antibiotics in the ED.
- Check COVID / flu status.
- Follow fever curve and monitor for any new / focal symptoms.
- Follow-up culture data.
- Observe off of further abx for now pending those results.
- Restart abx if recurrent fever, positive cultures, new symptoms, etc.
- CT done in the ED with no evidence of collection, abscess, hematoma, etc.
Constipation
- Large stool burden noted on CT and patient reports recent constipation.
- Bowel regimen and monitor fro clinical response / improvement in symptoms.
ASCVD
Severe s/p TAVR
Chronic HFpEF
- Stable. POD #2 s/p TAVR and R common femoral stent.
- Continue DAPT s/p stenting.
- Appreciate CT Surgery evaluation in the ED.
- Follow for any chest pain, dyspnea, etc.
- Continue usual Lasix. Monitor I/Os, daily weights, etc.
- Family reports significant improvement in LE edema.
COPD
- Stable at present with no new cough, dyspnea, etc.
- CXR unremarkable.
- Continue usual inhaled medications.
- Follow for any clinical changes.
Parkinson's Disease
Seizure Disorder
- Stable. Continue Sinemet / seizure meds without changes.
Hypothyroidism
- Stable. Continue current T4 supplementation.
DVT Prophylaxis: SCDs
Code Status: Full
[2024-10-11] MEDS: TYLENOL 1000 MG PO (03:17)
[2024-10-11] MEDS: MORPHINE SULFATE 2 MG IV (03:26)
[2024-10-11 04:02] LABS: COVID-19 Antigen Negative (Negative)
[2024-10-11 04:07] LABS: Troponin I 0.221 ng/ml
[2024-10-11 05:17] LABS: Hematocrit 31.2 % (39.0-52.0); Hemoglobin 10.9 g/dL (13.0-18.0); Mean Corp Hgb Conc. 34.9 g/dL (33.0-37.0); Mean Corpuscular Volume 96.0 fL (80.0-94.0); Platelet Count 245 10^3/uL (130-400); Red Cell Dist. Width 14.3 % (11.5-14.5)
[2024-10-11] MEDS: SYNTHROID 75 MCG PO (05:42)
[2024-10-11 05:55] LABS: Blood Urea Nitrogen 17 mg/dl (9-20); Calcium 8.5 mg/dl (8.4-10.2); Carbon Dioxide 24 mmol/L (22-30); Chloride 108 mmol/L (98-107); Estimated Creatinine Clearance 93 ml/min; Glucose 119 mg/dl (70-99); Potassium 4.9 mmol/L (3.5-5.1); Sodium 135 mmol/L (135-145); eGFR > 60.00
--- NOTE | 2024-10-11 06:42 | PTCARENOTE ---
Patient received from ED via stretcher. Pulled over to bed. Complete heart block on telemetry. Temp pacer pads on. Oxygen saturation 97% on room air. Patient's only complaint is chronic, severe low back pain. AOx3. Bed alarm in place due to high
fall risk status. Call shaw within reach. Care ongoing.
[2024-10-11] MEDS: PULMICORT 0.5 MG INH ×2 (07:42→19:21)
[2024-10-11] MEDS: VENTOLIN NEBULES 2.5 MG INH ×3 (07:42→19:21)
--- NOTE | 2024-10-11 07:50 | CON.CAR ---
Addendum entered and electronically signed by Reddy Vernon MD 10/11/24 14:01:
Attending addendum: Patient seen and examined. PA note reviewed. I independently met with Mr. Donis and obtained clinical history and performed physical examination. This is a 74-year-old gentleman who underwent right transfemoral
transcatheter aortic valve replacement on 10/09/2024 for treatment of severe symptomatic aortic stenosis. He underwent balloon angioplasty of the right common femoral arterial access site. He is a long-term resident of [facility]
(of note his long-term care facility is [facility] in [place]). He has a past medical history notable for underlying COPD as well as a traumatic brain injury after a fall. He has prior TIA and CVA as well as hypertension,
hyperlipidemia, diabetes, and sleep apnea. The evening after he was discharged he spiked a fever reportedly to 101 degrees at [facility] and was noted to be bradycardic and was transferred back to [facility]. On telemetry monitoring
overnight he was noted to have intermittent episodes of high degree AV block. He is feeling well and has no recurring subjective febrile symptoms.
Physical exam
GEN: AAO x 3.��No acute distress. He is conversant and pleasant.
HEENT:��NC/AT, sclera are anicteric
NECK: Supple.��Normal JVP
LUNGS: Scattered wheezing throughout both lung bautista. Good air movement.
CV: Regular rate and rhythm.��Normal S1/S2.��No S3, No S4.��Murmur: 1/6 murmur at the right and left upper sternal border
ABD : Soft, NT, ND, No HSM.��Bowel sounds are present.
EXT: No trace bilateral lower extremity edema. A dorsalis pedal pulse is obtained by Doppler.
Telemetry: Sinus rhythm with runs of complete heart block/high degree AV block
RECOMMENDATION
-High degree AV Block
---- I discussed with Dr. Shaw.
Plan to wait 24-hours before placement of permanent pacemaker given febrile illness at [facility]
CT scan of the chest to evaluate for pneumonia
Awaiting blood cultures
Will proceed with permanent pacemaker placement in 24 hours if all remains stable
-Continuous telemetry monitoring and strict bed rest
-Await cultures
Original Note:
Consultation
Consultation Request
Date/Time Consultation Performed: 10/11/24
Requesting Provider: Dr. Shaw
Performing Provider: Stephani Huerta PA-C for Dr. Vernon
Reason for Consultation: bradycardia
Medical History
-
Chief Complaint: bradycardia, dizziness, fever
History of Present Illness:
Patient is a 74-year-old male who underwent right transfemoral TAVR on 10/09/2024. His procedure was complicated by plaque disruption at access site status post balloon angioplasty of right common femoral artery x 2 by vascular surgery 10/09/2024.
He was discharged back to [facility] 10/10/2024 (he had been residing there after admission to [facility], normal facility is [facility] living in [place]). No rhythm issues postprocedure were observed. He does have a known chronic
right bundle branch block and is on amiodarone 200 mg daily. He was sent back to [facility] last evening from [facility] due to reported fever of 101 Fahrenheit, abdominal pain, and bradycardia. On arrival patient noted to have intermittent episodes of
high-grade AV block, which continues overnight. Patient reports he is symptomatic with dizziness during episodes.
PM:
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
Procedure complicated by plaque disruption noted at access site extending inferiorly s/p Balloon angioplasty of R STARTER MECHANIC x 2 (5min each), 10/09/24
Mild mitral stenosis with severe MAC
Non-obstructive coronary artery disease by cath
Chronic RBBB
Peripheral vascular disease
History of CVA/TIA
Subdural hematoma s/p fall
Parkinson's disease
Non-specific convulsions
Hard of hearing B/L (no hearing aides)
Borderline personality disorder
Depression/anxiety
COPD
Hypertension
Hyperlipidemia
DM2
Obstructive sleep apnea
Former tobacco
DDD/chronic back pain
History of pulmonary nodule
History of urinary incontinence/overactive bladder
Chronic anemia
Bilateral groin rash/intertrigo
Past Medical History
Past Medical History: Other (in HPI)
Social History
Tobacco: Former Smoker
Personal: Single
Living: Other (currently at [facility], typically in assisted living facility)
Allergies / Home Medications
Allergy/AdvReac Type Severity Reaction Status Date / Time
dulaglutide Allergy Thought to Verified 10/11/24 01:37
be drug
interaction
but
disproven
haloperidol (From Haldol) Allergy Unknown Verified 10/11/24 01:37
metformin Allergy Vomiting Verified 10/11/24 01:37
tiotropium (From Spiriva Allergy Coughing Verified 10/11/24 01:37
with HandiHaler)
tramadol AdvReac Unknown Pharmacy Verified 10/11/24 01:37
to Review
�Medication �Instructions �Recorded �Confirmed �Type
atorvastatin 40 mg tablet 40 mg PO QPM High Cholesterol 06/06/24 10/11/24 History
carbidopa 25 mg-levodopa 100 mg 3 tab PO TID with meals 06/06/24 10/11/24 History
tablet
carbidopa ER 50 mg-levodopa 200 mg 2 tab PO HS PARKINSONS 06/06/24 10/11/24 History
tablet,extended release
clopidogrel 75 mg tablet 75 mg PO QPM Blood Clot 06/06/24 10/11/24 History
Prevention/Tx
divalproex 500 mg tablet,delayed 1,000 mg PO TID Seizures 06/06/24 10/11/24 History
release
formoterol fumarate 20 mcg/2 mL 2 ml inhalation BID COPD 06/06/24 10/11/24 History
solution for nebulization
insulin lispro 100 unit/mL 0 unit SC AC sliding scale 06/06/24 10/11/24 History
subcutaneous pen
levothyroxine 75 mcg tablet 75 mcg PO DAILY Thyroid 06/06/24 10/11/24 History
magnesium hydroxide 400 mg/5 mL 30 ml PO DAILY PRN constipation ##0 06/06/24 10/11/24 History
oral suspension (Milk of Magnesia)
magnesium oxide 400 mg (241.3 mg 400 mg PO BID Supplement 06/06/24 10/11/24 History
magnesium) tablet
qdmrnnow-kkz-wraay acid 0.4 1 tab PO DAILY Supplement 06/06/24 10/11/24 History
mg-lycopene 300 mcg-lutein 250 mcg
tablet (Cerovite Senior)
pantoprazole 40 mg tablet,delayed 40 mg PO DAILY Gastrointestinal 06/06/24 10/11/24 History
release Issue
primidone 250 mg tablet 500 mg PO HS Seizures 06/06/24 10/11/24 History
tizanidine 2 mg tablet 2 mg PO BID Muscle Spasms 06/06/24 10/11/24 History
acetaminophen 325 mg tablet 650 mg PO Q4H PRN pain/fever 07/27/24 10/11/24 History
amiodarone 200 mg tablet 200 mg PO DAILY Arrhythmia 07/27/24 10/11/24 History
revefenacin 175 mcg/3 mL solution 175 mcg inhalation DAILY COPD 07/27/24 10/11/24 History
for nebulization (Yupelri)
sodium phosphates 19 gram-7 118 ml WA PRN PRN if dulcolax 07/27/24 10/11/24 History
gram/118 mL enema (Fleet Enema) ineffective
cholecalciferol (vitamin D3) 10 10 mcg PO DAILY Supplement 08/09/24 10/11/24 History
mcg (400 unit) tablet (Vitamin D3)
docusate sodium 100 mg capsule 100 mg PO BID PRN CONSTIPATION 08/09/24 10/11/24 History
insulin glargine 100 unit/mL (3 14 unit SC DAILY Diabetes 08/09/24 10/11/24 History
mL) subcutaneous pen (Lantus
Solostar U-100 Insulin)
acetaminophen 650 mg rectal 650 mg WA Q4H PRN if unable to 10/01/24 10/11/24 History
suppository take PO
aluminum-mag hydroxide-simethicone 15 ml PO Q4H PRN upset stomach 10/01/24 10/11/24 History
200 mg-200 mg-20 mg/5 mL oral susp
amlodipine 2.5 mg tablet 2.5 mg PO DAILY Blood Pressure 10/01/24 10/11/24 History
arformoterol 15 mcg/2 mL solution 2 ml inhalation BID Lung/Breathing 10/01/24 10/11/24 History
for nebulization Issues
benzonatate 100 mg capsule 100 mg PO Q8H PRN cough 10/01/24 10/11/24 History
bisacodyl 10 mg rectal suppository 10 mg WA DAILY PRN if MOM 10/01/24 10/11/24 History
(Dulcolax (bisacodyl)) ineffective
budesonide 0.5 mg/2 mL suspension 0.5 mg inhalation BID 10/01/24 10/11/24 History
for nebulization Lung/Breathing Issues
calcium carbonate 500 mg PO Q4H PRN acid stomach 10/01/24 10/11/24 History
dextromethorphan-guaifenesin 10 5 ml PO Q4H PRN cough 10/01/24 10/11/24 History
mg-100 mg/5 mL oral syrup
furosemide 20 mg tablet 20 mg PO DAILY Fluid 10/01/24 10/11/24 History
Retention/Swelling
guaifenesin 100 mg/5 mL oral liquid 200 mg PO Q4H PRN cough 10/01/24 10/11/24 History
levetiracetam 750 mg tablet 750 mg PO BID Seizures 10/01/24 10/11/24 History
loperamide 2 mg capsule (Imodium 2 mg PO Q4H PRN loose stools 10/01/24 10/11/24 History
A-D)
ondansetron 4 mg disintegrating 4 mg PO Q8H PRN N/V 10/01/24 10/11/24 History
tablet
polyethylene glycol 3350 17 gram 17 g PO DAILY PRN constipation 10/01/24 10/11/24 History
oral powder packet (Miralax)
tizanidine 2 mg tablet 6 mg PO HS Muscle Spasms 10/01/24 10/11/24 History
aspirin 81 mg chewable tablet 81 mg PO DAILY #0 tabs 10/10/24 10/11/24 Rx
Review of Systems
-
History Source: Patient
All other systems: Negative unless noted
Physical Exam
Vital Signs
Temp Pulse Resp BP Pulse Ox
98.1 F 96 20 112/47 94
10/11/24 07:27 10/11/24 06:00 10/11/24 07:27 10/11/24 04:42 10/11/24 07:27
Lab Results
10/11/24 05:02
10/11/24 05:02
Troponin I 0.221 ng/ml H* 10/11/24 03:21
Wml-L-Iudqflqcjgy Pept 538 pg/ml 10/10/24 23:44
Physical Exam
General: No Apparent Distress and Comfortable
HEENT: Normocephalic, Anicteric and Moist Mucous Membranes
Respiratory: Wheezes and Non Labored Respirations
Cardiac: S1/S2 and Regular Rhythm
GI: Soft, Non Tender, Non Distended and Normal Bowel Sounds
Musculoskeletal: No Clubbing, No Cyanosis and No Edema
Skin: Warm and Dry
Neuro: AO x 3
Impression / Plan
-
Primary [employer] Teacher: Dr. Lopes of [facility]
Assessment:
Reported fever of 101F at facility
Abd pain
Intermittent high grade AV block, symptomatic
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
Procedure complicated by plaque disruption noted at access site extending inferiorly s/p Balloon angioplasty of R STARTER MECHANIC x 2 (5min each), 10/09/24
Mild mitral stenosis with severe MAC
Non-obstructive coronary artery disease by cath
Chronic RBBB
Peripheral vascular disease
History of CVA/TIA
Subdural hematoma s/p fall
Parkinson's disease
Non-specific convulsions
Hard of hearing B/L (no hearing aides)
Borderline personality disorder
Depression/anxiety
COPD
Hypertension
Hyperlipidemia
DM2
Obstructive sleep apnea
Former tobacco
DDD/chronic back pain
History of pulmonary nodule
History of urinary incontinence/overactive bladder
Chronic anemia
Bilateral groin rash/intertrigo
Echo 05/11/2024: EF 60 to 65%, severe with peak/mean gradient 77/49 mmHg, UJLES 0.84 cm�, MAC with mild MS
Cardiac catheterization 06/06/2024 single-vessel nonobstructive coronary artery disease, severe
Echo 10/09/2024: EF 65 to 70%, mild concentric LVH, number 26 mm [place] TAVR with no AR and peak/mean gradients 8/5 mmHg, no pericardial effusion
Echo 10/10/2024: EF 65 to 70%, mild concentric LVH, well-seated number 26 mm [place] TAVR with peak/mean gradients 18/10 mmHg, no AR, normal pericardium
Plan:
- patient s/p TAVR 10/09/24, discharged 10/10/24 presents back [address] [facility] due to fever, abd pain, and symptomatic bradycardia
- With intermittent high-grade AV block on telemetry overnight. Patient reports is symptomatic with dizziness at times
- Holding outpatient amiodarone
- Continue evaluation of reported fever. Has been afebrile since admission and without leukocytosis. For CT of the abdomen and pelvis as complaining of abdominal pain. UA without clear evidence of infection. Blood cultures pending
- If infectious workup negative, would consider for permanent pacemaker placement later today versus in a.m. pending cath/EP schedule
- Continue aspirin, Plavix
- Blood pressure is elevated. Resumed outpatient Norvasc 2.5 mg daily and ordered IV hydralazine as needed
- He is wheezing on exam which he states is chronic from COPD. Would follow and consider for dose of IV Lasix
- Troponin 0.221, likely secondary to recent TAVR procedure. no CP
- d/w nursing
Data Reviewed
-
EKG: Tracing Personally Visualized and interpreted
Medical Tests (Nuc Med, Echo etc): Report Reviewed by me
Labs: Labs Reviewed by me
Old Records: Reviewed
[2024-10-11] MEDS: MIRALAX PO (08:02)
[2024-10-11] MEDS: PROTONIX 40 MG PO (08:12)
[2024-10-11] MEDS: SINEMET 25-100 3 TABLET PO ×3 (08:12→23:58)
[2024-10-11] MEDS: MAGNESIUM OXIDE 500 MG PO ×2 (08:12→20:32)
[2024-10-11] MEDS: LASIX 20 MG PO (08:13)
[2024-10-11] MEDS: COLACE 100 MG PO ×2 (08:13→20:32)
[2024-10-11] MEDS: LOW STRENGTH ASPIRIN 81 MG PO (08:13)
[2024-10-11] MEDS: DEPAKOTE (12 HR RELEASE) 1000 MG PO ×3 (08:13→23:58)
[2024-10-11] MEDS: KEPPRA 750 MG PO ×2 (08:13→20:32)
[2024-10-11 08:25] LABS: Glucose - Point of Care 126 mg/dl (70-99)
[2024-10-11] MEDS: NOVOLOG FLEXPEN-LOW RESISTANCE SC ×2 (08:25→12:20)
[2024-10-11] MEDS: NORVASC 2.5 MG PO (08:52)
--- NOTE | 2024-10-11 10:09 | PTCARENOTE ---
Pt w/ BEVERLEY in b/l groin. Desenex powder ordered per nursing protocol. See MAR.
[2024-10-11] MEDS: VENTOLIN NEBULES INH (11:07)
[2024-10-11] MEDS: DESENEX/MITRAZOL/ZEASORB 1 APPLIC TOPICAL ×2 (11:19→20:40)
[2024-10-11 12:18] LABS: Glucose - Point of Care 144 mg/dl (70-99)
--- NOTE | 2024-10-11 12:37 | W.PN.HOSP.TC ---
Today's Communication/Plan
-
Antibiotics.
Assessment / Plan
Assessment / Plan
Physical exam:
General: Acutely ill
HEENT: Normocephalic, Atraumatic and Moist Mucous Membranes
Respiratory: Bilateral wheezes, fine crackles right base, no rhonchi.
Cardiac: Regular Rhythm and S1/S2, systolic murmur
GI: Soft, Nontender and Nondistended
Musculoskeletal: No Clubbing, No Cyanosis. Trace bilateral lower extremity edema
Neuro: Awake, Alert and Oriented, no neurological deficit, presence of cognitive deficits
Psych: Calm
A/P:
Fever due to Right lower lobe pneumonia:
CT scan of the chest confirms pneumonia
Start IV Rocephin and doxycycline
Obtain sputum culture, Legionella, and strep
Follow-up blood cultures
If blood cultures remain sterile and after initiation of antibiotics for 24 hours then can proceed for pacemaker-discussed with cardiology.
High degree AV block:
Continue telemetry
Plan for pacemaker tomorrow if and as established above
Elevated troponin:
Elevated troponin due to non-ischemic myocardial injury in the setting of recent TAVR and pneumonia
Severe aortic stenosis:
Status post TAVR on 10/09:
Constipation:
Bowel regimen
COPD:
Continue inhalers as needed
On Pulmicort inhalers twice daily
Consider steroids if worsening but hold off for now
Hypothyroidism:
On levothyroxine 75 mcg p.o. daily
TSH high normal free T4--> repeat after acute illness in 6 weeks
Parkinson's:
Continue Sinemet 3 tablets 3 times daily (25-100) and Sinemet CR 2 tablets nightly (50-200)
Seizure disorder:
Continue Depakote 1000 mg 3 times daily and Keppra 750 mg twice a day
Chronic HFpEF:
On oral diuretic, Lasix 20 mg daily
CVA/TIA:
Continue dual antiplatelet and statin
Hypertension:
Restarted Norvasc
Added IV hydralazine as needed
Hyperlipidemia:
On atorvastatin 40 mg nightly
Diabetes mellitus type 2:
Insulin sliding scale
Continue Lantus 8 units daily and cut down to 4 prior to procedure
Other medical problems:
ROS
Subdural hematoma with craniotomy in the past
Peripheral vascular disease
History of toxic metabolic encephalopathy and hypertensive encephalopathy in the past
History of depression/bipolar
History of TBI
History of SVT
DVT prophylaxis:
SCDs
CODE STATUS:
Full code
Anticipated Discharge: 24 - 48 hours
Subjective/Interval History
-
Date of Service: October 11, 2024
Patient reports some cough. Complains of fatigue. No chest pain or shortness of breath. Afebrile today
Objective Data
-
Labs:
Laboratory Results
10/10/24 10/11/24
23:44 05:02
WBC 8.6
Hgb 10.9 L
Hct 31.2 L
Plt Count 228 245
Sodium 132 L 135
Potassium 4.8 4.9
Chloride 103 108 H
Carbon Dioxide 24 24
BUN 18 17
Creatinine 0.8 0.7
Glucose 198 H 119 H
Calcium 8.7 8.5
Total Bilirubin 0.4
AST 20
ALT < 10
Alkaline Phosphatase 111
Vital Signs:
Vital Signs
Temp Pulse Resp BP Pulse Ox
98 F 89 20 142/74 95
10/11/24 12:05 10/11/24 12:07 10/11/24 12:05 10/11/24 12:07 10/11/24 12:05
I&O
10/10/24 10/11/24 10/12/24
06:59 06:59 06:59
Output Total 200 / 200 950 / 950
Balance -200 / -200 -950 / -950
[2024-10-11] MEDS: VIBRAMYCIN 100 MG PO ×2 (13:30→20:32)
[2024-10-11] MEDS: ROCEPHIN 1000 MG IV (14:15)
[2024-10-11] MEDS: STERILE WATER FOR INJECTION 10 ML IV (14:15)
--- NOTE | 2024-10-11 14:27 | CM ---
Reviewed chart. Met with Mr. Donis and his sister to review discharge plans. She states prior to admission he was at [facility] for SNF/Rehab. He normally resides at [facility]. He states he has been there about two
years. He states prior to admission he ambulates with a rollator. He has a walker, rollator single point cane and wheelchair at home. He states prior to admission the staff assists with his adls and medications. Will need to see his current
functional level to see if he will have any skilled care needs. Will also need to review with [facility] to confirm bed availability when discharge date is known. Medical work-up in progress. The discharge plan is to return to [facility] if bed available and indicated when medically stable.
[2024-10-11] MEDS: LIPITOR 40 MG PO (16:52)
[2024-10-11] MEDS: PLAVIX 75 MG PO (16:52)
[2024-10-11 16:59] LABS: Glucose - Point of Care 171 mg/dl (70-99)
[2024-10-11] MEDS: NOVOLOG FLEXPEN-LOW RESISTANCE 1 UNITS SC (17:16)
[2024-10-11] MEDS: MIRALAX 17 GRAMS PO (20:32)
[2024-10-11] MEDS: TYLENOL 650 MG PO (20:33)
[2024-10-11 22:29] LABS: Glucose - Point of Care 189 mg/dl (70-99)
[2024-10-11] MEDS: SENOKOT 17.2 MG PO (23:59)
[2024-10-11] MEDS: MYSOLINE 500 MG PO (23:59)
[2024-10-12] VITALS (23 sets, daily range): BP systolic 77–160; BP diastolic 38–94; BMI 24.5
--- NOTE | 2024-10-12 01:09 | PTCARENOTE ---
Rec'd pt at change of shift. AAO*3, SR on TELE monitor, and VSS. Pt converted into 2nd degree hb at 20:47, denying any cp, discomfort, or palpitations at this time. BP stable at 149/69. EKG confirmed 2 degree AV block and [address] DEPUTY CLERK Ashlee aware.
At 00:48 pt noted to be in 3rd degree hb. [employer] DEPUTY CLERK Ashlee at bedside. Pacer pad applied and connected to [employer]. Code cart in room. BP 154/73 at this time. Pt denies any chest pain or discomfort again, however PRN Tylenol given for back pain.
Pt maintained on bedrest given cardiac instability. Bed alarm active.
See MAR and flowchart for full pt care and assessment.
[2024-10-12 05:14] LABS: Hematocrit 34.5 % (39.0-52.0); Hemoglobin 12.1 g/dL (13.0-18.0); Mean Corp Hgb Conc. 35.1 g/dL (33.0-37.0); Mean Corpuscular Volume 96.4 fL (80.0-94.0); Nucleated Red Blood Cells % 0 % (-); Platelet Count 237 10^3/uL (130-400); Red Cell Dist. Width 14.1 % (11.5-14.5)
[2024-10-12 05:44] LABS: ALT (SGPT) < 10 U/L (0-50); AST (SGOT) 21 U/L (17-59); Albumin 3.4 g/dl (3.5-5.0); Alkaline Phosphatase 104 U/L (38-126); Blood Urea Nitrogen 15 mg/dl (9-20); Calcium 8.9 mg/dl (8.4-10.2); Carbon Dioxide 24 mmol/L (22-30); Chloride 106 mmol/L (98-107); Estimated Creatinine Clearance 93 ml/min; Glucose 151 mg/dl (70-99); Magnesium 2.1 mg/dl (1.6-2.3); Potassium 4.5 mmol/L (3.5-5.1); Sodium 138 mmol/L (135-145); Total Protein 5.7 g/dl (6.3-8.2); eGFR > 60.00
[2024-10-12] MEDS: VENTOLIN NEBULES 2.5 MG INH ×4 (07:18→20:05)
[2024-10-12] MEDS: PULMICORT 0.5 MG INH ×2 (07:18→20:05)
--- NOTE | 2024-10-12 07:45 | W.PN.UPDATE ---
Update Note
Progress Note Update
Spoke with patient regarding his symptomatic complete heart block post TAVR implantation on October 09. He was diagnosed with pneumonia and now is on antibiotics. Ongoing discussions with internal medicine centering upon timing of permanent
pacemaker. At their request we delayed pacemaker implantation till today to allow initiation of proper therapy for the patient's pneumonia. He has remained hemodynamically stable despite his intermittent complete heart block although gets dizzy if
he is out of bed. As such we have kept him on bedrest or relative bedrest.
I discussed with patient today 1 of thousand risk of GA stroke and a 1% risk of pneumothorax tamponade infection or bleeding. We discussed left-sided implant in detail and post activity restrictions. He is amenable to proceed and signed
informed consent today. I will try to double back between cases to have a similar discussion with his sister. I communicated plan of care to Dr. Cohn and the TAVR team and we will plan for today please keep n.p.o. after midnight.
[2024-10-12] MEDS: DEPAKOTE (12 HR RELEASE) 1000 MG PO ×3 (09:23→22:05)
[2024-10-12] MEDS: LASIX 20 MG PO (09:23)
[2024-10-12] MEDS: NORVASC 2.5 MG PO (09:24)
[2024-10-12] MEDS: MAGNESIUM OXIDE 500 MG PO ×2 (09:24→19:39)
[2024-10-12] MEDS: SINEMET 25-100 3 TABLET PO ×3 (09:24→22:05)
[2024-10-12] MEDS: PROTONIX 40 MG PO (09:25)
[2024-10-12] MEDS: COLACE 100 MG PO ×2 (09:26→19:39)
[2024-10-12] MEDS: VIBRAMYCIN 100 MG PO ×2 (09:26→19:39)
[2024-10-12] MEDS: KEPPRA 750 MG PO ×2 (09:26→19:39)
[2024-10-12] MEDS: SYNTHROID 75 MCG PO (09:26)
[2024-10-12] MEDS: LOW STRENGTH ASPIRIN 81 MG PO (09:26)
[2024-10-12] MEDS: DESENEX/MITRAZOL/ZEASORB 1 APPLIC TOPICAL ×2 (09:27→19:41)
[2024-10-12] MEDS: MIRALAX 17 GRAMS PO ×2 (09:27→19:39)
[2024-10-12] MEDS: LIDOCAINE 4% PATCH 1 PATCH TOPICAL (09:27)
[2024-10-12] MEDS: NOVOLOG FLEXPEN-LOW RESISTANCE SC ×3 (09:28→17:19)
--- NOTE | 2024-10-12 10:51 | CM ---
Addendum entered by Korin Ball 10/12/24 15:02:
Sent referral to [facility]. Will need to sent updated therapy notes on Tuesday.
Addendum entered by Korin Ball 10/12/24 12:48:
Family will transport to [facility].
Addendum entered by Korin Ball 10/12/24 12:31:
Received call back from [facility] who confirms ability to accept back on Tuesday10/15/24 if medically stable. The telephone number for report is ([phone]) and the fax number is ([phone]).
Original Note:
Reviewed chart. Met with Mr. Donis and his sister to review discharge plans. He states he is going for a PPM today. He states he is hoping to return to [facility] when ready for discharge. [facility] [place],
([phone], ext [phone]) to check on bed availability. Left message. Prior to admission Mr. Donis was at [facility] for short-tenm rehab. H usually resides at [facility]. Prior to admission he ambulates with a
rollator and has assistance with adls. Staff manages his medications. Will need to see his current functional level to see if he will have any skilled care needs. Medical work-up in progress. The discharge plan is to return to [facility]
for resumption of SNF/Rehab. if bed available and approved for admission when medically stable.
--- NOTE | 2024-10-12 12:49 | W.PN.HOSP.TC ---
Addendum entered and electronically signed by Joey Shaw MD 10/12/24 13:48:
Stage 2 sacral pressure injury, POA.
Original Note:
Today's Communication/Plan
-
Antibiotics. Pacemaker implantation
Assessment / Plan
Assessment / Plan
Physical exam:
General: Acutely ill
HEENT: Normocephalic, Atraumatic and Moist Mucous Membranes
Respiratory: Bilateral wheezes, fine crackles right base, no rhonchi.
Cardiac: Regular Rhythm and S1/S2, systolic murmur
GI: Soft, Nontender and Nondistended
Musculoskeletal: No Clubbing, No Cyanosis. Trace bilateral lower extremity edema
Neuro: Awake, Alert and Oriented, no neurological deficit, presence of cognitive deficits
Psych: Calm
A/P:
Fever due to Right lower lobe pneumonia:
CT scan of the chest confirms pneumonia
Continue IV Rocephin and doxycycline
Obtain sputum culture, Legionella, and strep
Blood cultures remain sterile so okay for pacemaker
Discussed with family at bedside
High degree AV block:
Continue telemetry
Plan for pacemaker today
Elevated troponin:
Elevated troponin due to non-ischemic myocardial injury in the setting of recent TAVR and pneumonia
Severe aortic stenosis:
Status post TAVR on 10/09:
Constipation:
Bowel regimen
COPD:
Continue inhalers as needed
On Pulmicort inhalers twice daily
Consider steroids if worsening but hold off for now
Hypothyroidism:
On levothyroxine 75 mcg p.o. daily
TSH high normal free T4--> repeat after acute illness in 6 weeks
Parkinson's:
Continue Sinemet 3 tablets 3 times daily (25-100) and Sinemet CR 2 tablets nightly (50-200)
Seizure disorder:
Continue Depakote 1000 mg 3 times daily and Keppra 750 mg twice a day
Chronic HFpEF:
On oral diuretic, Lasix 20 mg daily
CVA/TIA:
Continue dual antiplatelet and statin
Hypertension:
Restarted Norvasc
Added IV hydralazine as needed
Hyperlipidemia:
On atorvastatin 40 mg nightly
Diabetes mellitus type 2:
Insulin sliding scale
Continue Lantus 8 units daily and cut down to 4 prior to procedure
Other medical problems:
ROS
Subdural hematoma with craniotomy in the past
Peripheral vascular disease
History of toxic metabolic encephalopathy and hypertensive encephalopathy in the past
History of depression/bipolar
History of TBI
History of SVT
DVT prophylaxis:
SCDs
CODE STATUS:
Full code
Total time spent on today's encounter was 52 minutes which included time spent in counseling the patient/family regarding diagnosis and treatment plan as listed above, goals of care, and symptom management. Case was discussed with nursing staff,
specialists, and care coordinators/case management. All labs and imaging personally reviewed by me. Remainder the time spent in detailed review of previous records, lab data, imaging, and other medical provider documentation.
Anticipated Discharge: 24 - 48 hours
Subjective/Interval History
-
Date of Service: October 12, 2024
Patient sleepy earlier this morning. No chest pain. No shortness of breath. Afebrile
Objective Data
-
Labs:
Laboratory Results
10/12/24
05:04
WBC 8.1
Hgb 12.1 L
Hct 34.5 L
Plt Count 237
Sodium 138
Potassium 4.5
Chloride 106
Carbon Dioxide 24
BUN 15
Creatinine 0.7
Glucose 151 H
Calcium 8.9
Total Bilirubin 0.6
AST 21
ALT < 10
Alkaline Phosphatase 104
Vital Signs:
Vital Signs
Temp Pulse Resp BP Pulse Ox
97.9 F 40 20 120/49 98
10/12/24 12:40 10/12/24 11:09 10/12/24 12:40 10/12/24 09:24 10/12/24 12:40
I&O
10/11/24 10/12/24 10/13/24
06:59 06:59 06:59
Output Total 200 / 200 2049
Balance -200 / -200 -2049 / -2049
[2024-10-12] MEDS: LANTUS SC (13:06)
--- NOTE | 2024-10-12 13:26 | PN.CDI ---
CDI
- -
CDI:
Physician Documentation Request
Admit Date: 10/11/24 03:44
Dear Doctor Valeria,
Patient admitted with pneumonia.
10/11 Nursing skin assessment, 'Stage 2 sacral pressure injury, POA.'
Physician documentation of the type and location of wounds is required for compliant documentation. Based on the above clinical findings and your assessment, please provide the following in your progress note:
Type (etiology) of ulcer/wound:
- Pressure (decubitus) ulcer
- Other
- Unable to determine
For a pressure ulcer, please also include the stage* of the ulcer:
- Stage 1 - Skin intact, non-blanchable redness
- Stage 2 - Partial thickness loss of dermis, includes intact or open blister
- Stage 3 - Full thickness tissue not including bone, tendon or muscle
- Stage 4 - Full thickness tissue loss, including exposed bone, tendon or muscle
- Unstageable - Full thickness loss in which the base of the ulcer is covered by slough (yellow, suh, mena, green or brown) and/or eschar (suh, brown or black) in the wound bed.
- Unable to determine
Use of terms such as suspected, likely, concern for, or probable (associated with a specific diagnosis that is being evaluated, monitored, or treated as if it exists) are acceptable and can be coded in the inpatient setting, when documented at the
time of discharge.
Thank you,
Bailee HAYES,RN,CCDS
CDI Specialist
Available via [employer] text
Please use your independent medical judgment in providing your response.
*Source: National Pressure Ulcer Advisory Panel (NPUAP)
--- NOTE | 2024-10-12 14:47 | ITS.CL.PACE ---
Pilot Teacher - Pacemaker Implant
Pacemaker Implant
Procedure Report:
Date of Procedure: October 12, 2024
Patient : 1950
Procedure: Pacemaker Implantation.
Indication: Complete heart block after TAVR
Implants:
Pulse Generator: Medtronic; Model# W1 DR 01 SN: [id number]
RA Lead: Medtronic; Model# 4574; SN: [id number]
RV Lead: Medtronic; Model# 4074; SN: [id number]
Technique: A time out was performed. The procedure site was identified. The patient was anesthetized by the anesthesia service. Preoperative sedation was administered. The patient was prepped and draped in the usual fashion. Local anesthetic was
applied to the left prepectoral subcutaneous tissue. A 3 inch incision was made 2.5 inches below the left clavicle. A subcutaneous pocket was created with blunt and sharp dissection and hemostasis controlled with Bovie cautery. The left axillary
vein was accessed within the pocket without difficulty. Hemostasis was excellent. The leads were introduced with 7 Fr hemostatic peel away introducer sheaths. The ventricular lead was placed at the right ventricular apex. The atrial lead was placed
in the right atrial appendage. 10 volt pacing did not capture the diaphragm. The leads were secured to the pectoralis muscle and fascia. The leads were appropriately attached to the device. The pocket was irrigated with antibiotic solution. The
device and leads were placed in the pocket. The incision was closed in three layers with absorbable suture. The estimated blood loss was minimal. There were no complications.��
Lead Analysis:
RA lead: P: 3.8 mV; Threshold: 0.75 V @ 0.5��ms; Impedance: 650 ohms.
RV lead: R: 8 mV; Threshold: 0.4 V @ 0.5��ms; Impedance: 980 ohms.
Final Programming: DDD 60 to 130 bpm
�
Conclusion: Uncomplicated Medtronic pacemaker implant.
Recommendation: Routine post pacemaker care. Treat pneumonia as you are and wound check in 7 to 10 days
[2024-10-12] MEDS: ZANAFLEX 2 MG PO (17:14)
[2024-10-12] MEDS: TYLENOL 650 MG PO (17:14)
[2024-10-12] MEDS: ROCEPHIN 1000 MG IV (17:15)
[2024-10-12] MEDS: PLAVIX 75 MG PO (17:16)
[2024-10-12] MEDS: LIPITOR 40 MG PO (17:16)
[2024-10-12] MEDS: STERILE WATER FOR INJECTION 10 ML IV (17:16)
[2024-10-12 17:20] LABS: Glucose - Point of Care 139 mg/dl (70-99)
--- NOTE | 2024-10-12 18:46 | W.PN.UPDATE ---
Update Note
Progress Note Update
Patient with discomfort at pacer site, minimal amount of crepitus, laterally and superiorly. Chest x-ray performed, reviewed with radiology no pneumothorax. Will repeat x-ray in AM. Although he is tender to palpation, he appears comfortable at
rest.
--- NOTE | 2024-10-12 19:09 | PTCARENOTE ---
pt back from chest xray, pts site is puffy, approximately 2-3 in length and appears to have crepitus at the base of the ppm site. notified dr. strong and zaida escalona notified. Chest xray ordered. zaida escalona at bedside. pt c/o pain at site, Tylenol given
as ordered. pt is paced on the monitor, hr in the 70s, vss. pt resting in bed comfortably. bed alarm in place. call shaw within reach.
[2024-10-12] MEDS: ANCEF 5 IV (19:39)
--- NOTE | 2024-10-12 21:50 | PTCARENOTE ---
Pt rec'd at change of shift awake,alert. Left chest wall pacer site with some swelling noted below drsg site. Area marked by dayshift nurse with no changes noted per day shift at shift change. Immobilizer remains in place. Pain with movement however
pt refusing Tylenol. MILL HAND PLATE MILL on telemetry.
[2024-10-12 22:04] LABS: Glucose - Point of Care 149 mg/dl (70-99)
[2024-10-12] MEDS: MYSOLINE 500 MG PO (22:05)
[2024-10-12] MEDS: SINEMET CR 50/200 (EXTENDED RELEASE) 2 TABLET PO ×2 (22:05)
[2024-10-12] MEDS: SENOKOT 17.2 MG PO (22:05)
[2024-10-13] VITALS (9 sets, daily range): BP systolic 112–145; BP diastolic 76–91; PULSE 89; BMI 24.7
[2024-10-13] MEDS: DULCOLAX 10 MG RECTAL (00:45)
--- NOTE | 2024-10-13 01:36 | PTCARENOTE ---
Pt assisted oob to bsc 2x's unable to pass stool. Dulcolax suppository given. Approx 30 mins later pt passed 'enormous' formed stool.
Back to bed at present feeling relieved.
[2024-10-13] MEDS: ANCEF 5 IV (04:16)
[2024-10-13] MEDS: TYLENOL 650 MG PO ×3 (04:24→22:47)
[2024-10-13] MEDS: SYNTHROID 75 MCG PO (05:09)
[2024-10-13 06:02] LABS: Hematocrit 34.4 % (39.0-52.0); Hemoglobin 11.8 g/dL (13.0-18.0); Mean Corp Hgb Conc. 34.3 g/dL (33.0-37.0); Mean Corpuscular Volume 99.1 fL (80.0-94.0); Nucleated Red Blood Cells % 0 % (-); Platelet Count 248 10^3/uL (130-400); Red Cell Dist. Width 14.3 % (11.5-14.5)
[2024-10-13 06:13] LABS: Blood Urea Nitrogen 18 mg/dl (9-20); Calcium 9.1 mg/dl (8.4-10.2); Carbon Dioxide 27 mmol/L (22-30); Chloride 105 mmol/L (98-107); Estimated Creatinine Clearance 93 ml/min; Glucose 128 mg/dl (70-99); Magnesium 2.2 mg/dl (1.6-2.3); Potassium 4.6 mmol/L (3.5-5.1); Sodium 138 mmol/L (135-145); eGFR > 60.00
--- NOTE | 2024-10-13 06:14 | PTCARENOTE ---
VS captured from previous shift at beginning of operations supervisor 2nd shift
[2024-10-13] MEDS: PULMICORT 0.5 MG INH ×2 (07:23→19:32)
[2024-10-13] MEDS: VENTOLIN NEBULES 2.5 MG INH ×4 (07:24→19:32)
[2024-10-13 08:19] LABS: Glucose - Point of Care 126 mg/dl (70-99)
--- NOTE | 2024-10-13 08:34 | W.PN.CARDCBS ---
Addendum entered and electronically signed by Eleazar Sarmiento DO 10/13/24 09:44:
I saw and examined the patient.
The Short Story Writer's note was reviewed and I agree with the note.
Comment:
Patient seen and examined, resting comfortably in bed notes mild discomfort at pacemaker site
GEN: No distress, awake, alert, oriented x3
HEENT: supple, anicteric, mmm, EOMI
LUNGS: CTA bilaterally, no wheezes/rales
CV: Reg, S1/S2, 1/6 syst LSB
ABD: soft, BS+, NT/ND
EXT: No cyanosis, clubbing, edema
NEURO: Gross non-focal
SKIN: Warm, pink, dry. No rash. Left chest site with marked tenderness to palpation. Mild swelling without fluctuance under Aquacel dressing, however no clear crepitus. Demarcated area without edema, erythema. No firm areas noted. No
significant bruising.
Telemetry shows a sensed V paced
A/P as below
Repeat chest x-ray pending
Resume amiodarone
Encourage p.o. Tylenol for discomfort
Head of bed greater than 30 degrees
Supportive care
Antibiotics per primary service for pneumonia
Original Note:
Today's Communication / Plan
-
Repeat chest x-ray
Resume amiodarone
Ambulate/IS
Impression / Plan
-
Primary Farmworker Cranberry: Dr. Lopes of [facility]
Assessment:
Reported fever of 101F at facility
Abd pain
Intermittent high grade AV block, symptomatic, status post Medtronic pacemaker placement 10/12/2024
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
Procedure complicated by plaque disruption noted at access site extending inferiorly s/p Balloon angioplasty of R SHELF STOCKER x 2 (5min each), 10/09/24
Mild mitral stenosis with severe MAC
Non-obstructive coronary artery disease by cath
VT 06/2024 at [facility] per sister, started on amiodarone without known recurrence
Chronic RBBB
Peripheral vascular disease
History of CVA/TIA
Subdural hematoma s/p fall
Parkinson's disease
Non-specific convulsions
Hard of hearing B/L (no hearing aides)
Borderline personality disorder
Depression/anxiety
COPD
Hypertension
Hyperlipidemia
DM2
Obstructive sleep apnea
Former tobacco
DDD/chronic back pain
History of pulmonary nodule
History of urinary incontinence/overactive bladder
Chronic anemia
Bilateral groin rash/intertrigo
Echo 05/11/2024: EF 60 to 65%, severe with peak/mean gradient 77/49 mmHg, JULES 0.84 cm�, MAC with mild MS
Cardiac catheterization 06/06/2024 single-vessel nonobstructive coronary artery disease, severe
Echo 10/09/2024: EF 65 to 70%, mild concentric LVH, number 26 mm [place] TAVR with no AR and peak/mean gradients 8/5 mmHg, no pericardial effusion
Echo 10/10/2024: EF 65 to 70%, mild concentric LVH, well-seated number 26 mm [place] TAVR with peak/mean gradients 18/10 mmHg, no AR, normal pericardium
Plan:
- patient s/p TAVR 10/09/24, discharged 10/10/24 presents back to [facility] due to fever, abd pain, and symptomatic bradycardia
- Status post Medtronic pacemaker placement 10/12/2024
- Chest x-ray without pneumothorax. Was noted to have tenderness to palpation and mild amount of crepitus at pocket site last evening and remains with tenderness today. for repeat CXR this AM
- OP amiodarone has been on hold pre PPM. discussed with patient's sister, Klarissa via telephone regarding why amio was started. she states while patient was at [facility] in 06/2024 he had episode of tachycardia while in CT scan. she states before they
needed to shock him he was given IV med that reverted him back to normal rhythm. She believes it was VT but will bring in paperwork from [facility]. she states he has not had episode since on amio. will resume
- in asensed vpaced rhythm on review of tele
- continue treatment of suspected PNA per primary service
- Continue aspirin, Plavix
- Blood pressure improved. continue norvasc
- Troponin 0.221, likely secondary to recent TAVR procedure. no CP
- ambulate, IS
- d/w nursing, CT surgery PA
Progress Note - Farmworker Cranberry
Subjective
Date of Service: October 13, 2024
Reports left chest site pain
Objective
Labs:
10/13/24 04:57
10/13/24 04:57
Labs
Hgb 11.8 g/dL (13.0-18.0) L 10/13/24 04:57
Hct 34.4 % (39.0-52.0) L 10/13/24 04:57
Plt Count 248 10^3/uL (130-400) 10/13/24 04:57
PT 14.7 Sec (11.4-14.6) H 10/10/24 23:44
INR 1.09 10/10/24 23:44
APTT 31.6 Sec (23.4-35.0) 10/10/24 23:44
Sodium 138 mmol/L (135-145) 10/13/24 04:57
Potassium 4.6 mmol/L (3.5-5.1) 10/13/24 04:57
BUN 18 mg/dl (9-20) 10/13/24 04:57
Creatinine 0.7 mg/dL (0.7-1.3) 10/13/24 04:57
Glucose 128 mg/dl (70-99) H 10/13/24 04:57
Troponins
10/10/24 10/11/24
23:44 03:21
Troponin I 0.205 H* 0.221 H*
Vital Signs and I&O:
Vital Signs
Temp Pulse Resp BP Pulse Ox
97.6 F 83 18 112/76 96
10/13/24 07:35 10/13/24 07:35 10/13/24 07:35 10/13/24 07:35 10/13/24 07:35
Vital Signs
Temp Pulse Resp BP Pulse Ox
97.6 F 83 18 112/76 96
10/13/24 07:35 10/13/24 07:35 10/13/24 07:35 10/13/24 07:35 10/13/24 07:35
Intake & Output
10/11/24 10/12/24 10/13/24 10/14/24
07:59 07:59 07:59 07:59
Intake Total 720 / 720
Output Total 200 / 200 2049 / 2049 600 / 600
Balance -200 / -200 -2049 / -0 120 / 120
Physical Exam
Physical Exam
GEN: No distress, awake, alert, oriented x3
HEENT: supple, anicteric, mmm, EOMI
LUNGS: CTA bilaterally, no wheezes/rales
CV: Reg, S1/S2, 1/6 syst LSB
ABD: soft, BS+, NT/ND
EXT: No cyanosis, clubbing, edema
NEURO: Gross non-focal
SKIN: Warm, pink, dry. No rash. Left chest site with marked tenderness to palpation. Mild edema under Aquacel dressing, however no clear crepitus. Demarcated area without edema, erythema. No firm areas noted. No significant bruising.
[2024-10-13] MEDS: NOVOLOG FLEXPEN-LOW RESISTANCE SC ×2 (08:47→18:09)
[2024-10-13] MEDS: LASIX 20 MG PO (09:23)
[2024-10-13] MEDS: DESENEX/MITRAZOL/ZEASORB 1 APPLIC TOPICAL ×2 (09:23→19:43)
[2024-10-13] MEDS: LIDOCAINE 4% PATCH 1 PATCH TOPICAL (09:23)
[2024-10-13] MEDS: DEPAKOTE (12 HR RELEASE) 1000 MG PO ×3 (09:24→22:47)
[2024-10-13] MEDS: KEPPRA 750 MG PO ×2 (09:24→19:43)
[2024-10-13] MEDS: MAGNESIUM OXIDE 500 MG PO ×2 (09:24→19:43)
[2024-10-13] MEDS: PROTONIX 40 MG PO (09:24)
[2024-10-13] MEDS: SINEMET 25-100 3 TABLET PO ×3 (09:24→22:46)
[2024-10-13] MEDS: COLACE 100 MG PO ×2 (09:25→19:43)
[2024-10-13] MEDS: LOW STRENGTH ASPIRIN 81 MG PO (09:25)
[2024-10-13] MEDS: VIBRAMYCIN 100 MG PO ×2 (09:26→19:43)
[2024-10-13] MEDS: NORVASC 2.5 MG PO (09:26)
[2024-10-13] MEDS: MIRALAX 17 GRAMS PO ×2 (09:27→19:43)
[2024-10-13] MEDS: LANTUS 0.04 UNITS SC (09:27)
[2024-10-13] MEDS: PACERONE 200 MG PO (11:54)
--- NOTE | 2024-10-13 11:54 | W.PN.HOSP.TC ---
Today's Communication/Plan
-
Antibiotics. Chest x-ray. Cardiology reeval
Assessment / Plan
Assessment / Plan
Physical exam:
General: Acutely ill
HEENT: Normocephalic, Atraumatic and Moist Mucous Membranes
Respiratory: Bilateral wheezes, fine crackles right base, no rhonchi.
Cardiac: Regular Rhythm and S1/S2, systolic murmur
GI: Soft, Nontender and Nondistended
Musculoskeletal: No Clubbing, No Cyanosis. Trace bilateral lower extremity edema
Neuro: Awake, Alert and Oriented, no neurological deficit, presence of cognitive deficits
Psych: Calm
A/P:
Fever due to Right lower lobe pneumonia:
Currently afebrile
CT scan of the chest confirms pneumonia
Continue IV Rocephin and doxycycline
Obtained Legionella, and strep which are all negative
Blood cultures remain sterile
Sputum culture pending
Discussed with family prior
PT OT eval
High degree AV block:
Continue telemetry
Status post pacemaker on 10/12
Cardiology repeating chest x-ray
Elevated troponin:
Elevated troponin due to non-ischemic myocardial injury in the setting of recent TAVR and pneumonia
Severe aortic stenosis:
Status post TAVR on 10/09:
Constipation:
Bowel regimen
COPD:
Continue inhalers as needed
On Pulmicort inhalers twice daily
Consider steroids if worsening but hold off for now
Hypothyroidism:
On levothyroxine 75 mcg p.o. daily
TSH high normal free T4--> repeat after acute illness in 6 weeks
Parkinson's:
Continue Sinemet 3 tablets 3 times daily (25-100) and Sinemet CR 2 tablets nightly (50-200)
Seizure disorder:
Continue Depakote 1000 mg 3 times daily and Keppra 750 mg twice a day
Chronic HFpEF:
On oral diuretic, Lasix 20 mg daily
CVA/TIA:
Continue dual antiplatelet and statin
Hypertension:
Restarted Norvasc
Added IV hydralazine as needed
Hyperlipidemia:
On atorvastatin 40 mg nightly
Diabetes mellitus type 2:
Insulin sliding scale
Continue Lantus 8 units daily and cut down to 4 prior to procedure and now back to 8
History of SVT:
Holding amiodarone but now will resume
Other medical problems:
ROS
Subdural hematoma with craniotomy in the past
Peripheral vascular disease
History of toxic metabolic encephalopathy and hypertensive encephalopathy in the past
History of depression/bipolar
History of TBI
DVT prophylaxis:
SCDs
CODE STATUS:
Full code
Total time spent on today's encounter was 52 minutes which included time spent in counseling the patient/family regarding diagnosis and treatment plan as listed above, goals of care, and symptom management. Case was discussed with nursing staff,
specialists, and care coordinators/case management. All labs and imaging personally reviewed by me. Remainder the time spent in detailed review of previous records, lab data, imaging, and other medical provider documentation.
Anticipated Discharge: 24 - 48 hours
Subjective/Interval History
-
Date of Service: October 13, 2024
Patient alert oriented. Denies chest pain or shortness of breath. Does report some discomfort on the pacemaker site. Afebrile
Objective Data
-
Labs:
Laboratory Results
10/13/24
04:57
WBC 7.6
Hgb 11.8 L
Hct 34.4 L
Plt Count 248
Sodium 138
Potassium 4.6
Chloride 105
Carbon Dioxide 27
BUN 18
Creatinine 0.7
Glucose 128 H
Calcium 9.1
Vital Signs:
Vital Signs
Temp Pulse Resp BP Pulse Ox
97.8 F 91 20 124/80 96
10/13/24 11:51 10/13/24 11:51 10/13/24 11:51 10/13/24 11:51 10/13/24 11:51
I&O
10/12/24 10/13/24 10/14/24
06:59 06:59 06:59
Intake Total 720 / 720
Output Total 2049 / 2049 600 / 600
Balance -2049 / -2049 120 / 120
--- NOTE | 2024-10-13 12:21 | PTCARENOTE ---
10/13/24 Received patient in bed. Pt AAO x3, VSS, afebrile, on room air at 95%. Pt with no complaints of shortness of breath, chest pain or palpitations. All medications given. Pt assisted to commode x3 times. +flatus, No BM. Pt went to x-ray without
complications. PO Amio added to AM medications.
[2024-10-13] MEDS: NOVOLOG FLEXPEN-LOW RESISTANCE 2 UNITS SC (12:32)
[2024-10-13 12:37] LABS: Glucose - Point of Care 212 mg/dl (70-99)
[2024-10-13] MEDS: STERILE WATER FOR INJECTION 10 ML IV (14:57)
[2024-10-13] MEDS: ROCEPHIN 1000 MG IV (16:32)
[2024-10-13] MEDS: PLAVIX 75 MG PO (16:40)
[2024-10-13] MEDS: LIPITOR 40 MG PO (16:40)
--- NOTE | 2024-10-13 17:18 | PTCARENOTE ---
Assessment stable as previously documented. VSS afebrile. Moist unproductive cough at times. Neuro status as baseline - garbled speech at times and hard to find words. Pt continues to C?O lower back pain, provided analgesic and comfort measures.
[2024-10-13 17:29] LABS: Glucose - Point of Care 148 mg/dl (70-99)
[2024-10-13 22:38] LABS: Glucose - Point of Care 179 mg/dl (70-99)
[2024-10-13] MEDS: MYSOLINE 500 MG PO (22:46)
[2024-10-13] MEDS: SENOKOT 17.2 MG PO (22:47)
[2024-10-13] MEDS: SINEMET CR 50/200 (EXTENDED RELEASE) 2 TABLET PO (22:47)
[2024-10-14] VITALS (7 sets, daily range): BP systolic 99–149; BP diastolic 67–82; BMI 24.5
--- NOTE | 2024-10-14 00:33 | PTCARENOTE ---
Pt rec'd at change of shift awake,alert oob with assist to bsc where pt passed large formed stool. NOTARY PUBLIC on telemetry.Tylenol given for pacer site discomfort with movement.
[2024-10-14 04:04] LABS: Hematocrit 33.2 % (39.0-52.0); Hemoglobin 11.4 g/dL (13.0-18.0); Mean Corp Hgb Conc. 34.3 g/dL (33.0-37.0); Mean Corpuscular Volume 97.9 fL (80.0-94.0); Platelet Count 215 10^3/uL (130-400); Red Cell Dist. Width 14.3 % (11.5-14.5)
[2024-10-14 04:30] LABS: Blood Urea Nitrogen 13 mg/dl (9-20); Calcium 9.2 mg/dl (8.4-10.2); Carbon Dioxide 24 mmol/L (22-30); Chloride 108 mmol/L (98-107); Estimated Creatinine Clearance 93 ml/min; Glucose 125 mg/dl (70-99); Potassium 4.1 mmol/L (3.5-5.1); Sodium 139 mmol/L (135-145); eGFR > 60.00
[2024-10-14] MEDS: SYNTHROID 75 MCG PO (04:58)
[2024-10-14] MEDS: VENTOLIN NEBULES 2.5 MG INH ×4 (07:03→20:05)
[2024-10-14] MEDS: PULMICORT 0.5 MG INH ×2 (07:03→20:04)
--- NOTE | 2024-10-14 08:37 | W.PN.HOSP.TC ---
Today's Communication/Plan
-
Antibiotics. PT OT
Assessment / Plan
Assessment / Plan
Physical exam:
General: Acutely ill
HEENT: Normocephalic, Atraumatic and Moist Mucous Membranes
Respiratory: Clear to auscultation bilaterally, no crackles or wheezes or rhonchi. Mild discomfort on palpation of left pacemaker site.
Cardiac: Regular Rhythm and S1/S2, systolic murmur
GI: Soft, Nontender and Nondistended
Musculoskeletal: No Clubbing, No Cyanosis. Trace bilateral lower extremity edema
Neuro: Awake, Alert and Oriented, no neurological deficit, presence of cognitive deficits
Psych: Calm
A/P:
Right lower lobe pneumonia:
Currently afebrile and on room air
CT scan of the chest confirms pneumonia
Continue IV Rocephin and oral doxycycline. Plan to switch to all oral antibiotics tomorrow to finish course.
Obtained Legionella, and strep which are all negative
Blood cultures remain sterile
Sputum culture pending
Discussed with family prior
PT OT eval
High degree AV block:
Continue telemetry
Status post pacemaker on 10/12
Cardiology repeated chest x-ray yesterday and no acute chest pathology.
Tenderness on left pacemaker site-will defer to cardiology for further evaluation.
Acute on chronic back pain:
Add oxycodone as needed-Per family he has been on low dose of this before for chronic pain
Elevated troponin:
Elevated troponin due to non-ischemic myocardial injury in the setting of recent TAVR and pneumonia
Severe aortic stenosis:
Status post TAVR on 10/09:
Constipation:
Bowel regimen
COPD:
Continue inhalers as needed
On Pulmicort inhalers twice daily
Consider steroids if worsening but hold off for now
Hypothyroidism:
On levothyroxine 75 mcg p.o. daily
TSH high normal free T4--> repeat after acute illness in 6 weeks
Parkinson's:
Continue Sinemet 3 tablets 3 times daily (25-100) and Sinemet CR 2 tablets nightly (50-200)
Seizure disorder:
Continue Depakote 1000 mg 3 times daily and Keppra 750 mg twice a day
Chronic HFpEF:
On oral diuretic, Lasix 20 mg daily
CVA/TIA:
Continue dual antiplatelet and statin
Hypertension:
Restarted Norvasc
Added IV hydralazine as needed
Hyperlipidemia:
On atorvastatin 40 mg nightly
Diabetes mellitus type 2:
Insulin sliding scale
Continue Lantus 8 units daily and cut down to 4 prior to procedure and now back to 8
History of SVT versus VT:
Resumed amiodarone and cardiology requesting more records
Other medical problems:
ROS
Subdural hematoma with craniotomy in the past
Peripheral vascular disease
History of toxic metabolic encephalopathy and hypertensive encephalopathy in the past
History of depression/bipolar
History of TBI
DVT prophylaxis:
SCDs
CODE STATUS:
Full code
Time spent 35 minutes
Anticipated Discharge: 24 - 48 hours
Subjective/Interval History
-
Date of Service: October 14, 2024
Patient with no chest pain or cough or shortness of breath. He does complain of pacemaker site pain and some back pain. On room air. Afebrile.
Objective Data
-
Labs:
Laboratory Results
10/14/24
03:48
WBC 6.5
Hgb 11.4 L
Hct 33.2 L
Plt Count 215
Sodium 139
Potassium 4.1
Chloride 108 H
Carbon Dioxide 24
BUN 13
Creatinine 0.7
Glucose 125 H
Calcium 9.2
Vital Signs:
Vital Signs
Temp Pulse Resp BP Pulse Ox
98.2 F 88 20 113/73 99
10/14/24 08:16 10/14/24 07:03 10/14/24 08:16 10/14/24 03:10 10/14/24 08:16
I&O
10/13/24 10/14/24 10/15/24
06:59 06:59 06:59
Intake Total 720 / 720 350 / 350
Output Total 600 / 600 1150 / 1150
Balance 120 / 120 -800 / -800
[2024-10-14 08:59] LABS: Glucose - Point of Care 129 mg/dl (70-99)
[2024-10-14] MEDS: LIDOCAINE 4% PATCH 1 PATCH TOPICAL (09:01)
[2024-10-14] MEDS: KEPPRA 750 MG PO ×2 (09:01→21:02)
[2024-10-14] MEDS: VIBRAMYCIN 100 MG PO ×2 (09:01→21:02)
[2024-10-14] MEDS: NOVOLOG FLEXPEN-LOW RESISTANCE SC (09:01)
[2024-10-14] MEDS: LOW STRENGTH ASPIRIN 81 MG PO (09:01)
[2024-10-14] MEDS: NORVASC 2.5 MG PO (09:02)
[2024-10-14] MEDS: PROTONIX 40 MG PO (09:02)
[2024-10-14] MEDS: MAGNESIUM OXIDE 500 MG PO ×2 (09:02→21:02)
[2024-10-14] MEDS: DEPAKOTE (12 HR RELEASE) 1000 MG PO ×3 (09:02→21:01)
[2024-10-14] MEDS: PACERONE 200 MG PO (09:02)
[2024-10-14] MEDS: LANTUS 0.08 UNITS SC (09:15)
[2024-10-14] MEDS: DESENEX/MITRAZOL/ZEASORB 1 APPLIC TOPICAL ×2 (09:15→21:01)
[2024-10-14] MEDS: COLACE PO ×2 (09:15→21:02)
[2024-10-14] MEDS: MIRALAX PO ×2 (09:15→20:46)
[2024-10-14] MEDS: LASIX 20 MG PO (09:36)
[2024-10-14] MEDS: SINEMET 25-100 3 TABLET PO ×3 (09:36→21:01)
--- NOTE | 2024-10-14 10:06 | W.PN.CARDCBS ---
Today's Communication / Plan
-
Encourage p.o. Tylenol for discomfort, head of bed at 30 degrees
Out of bed to chair
Antibiotics per primary service
Ambulate/I-S
Impression / Plan
-
Primary Speech Correction Consultant: Dr. Lopes of [facility]
Assessment:
Reported fever of 101F at facility
Abd pain
Intermittent high grade AV block, symptomatic, status post Medtronic pacemaker placement 10/12/2024
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
Procedure complicated by plaque disruption noted at access site extending inferiorly s/p Balloon angioplasty of R MATERNAL CHILD NURSE x 2 (5min each), 10/09/24
Mild mitral stenosis with severe MAC
Non-obstructive coronary artery disease by cath
VT 06/2024 at [facility] per sister, started on amiodarone without known recurrence
Chronic RBBB
Peripheral vascular disease
History of CVA/TIA
Subdural hematoma s/p fall
Parkinson's disease
Non-specific convulsions
Hard of hearing B/L (no hearing aides)
Borderline personality disorder
Depression/anxiety
COPD
Hypertension
Hyperlipidemia
DM2
Obstructive sleep apnea
Former tobacco
DDD/chronic back pain
History of pulmonary nodule
History of urinary incontinence/overactive bladder
Chronic anemia
Bilateral groin rash/intertrigo
Echo 05/11/2024: EF 60 to 65%, severe with peak/mean gradient 77/49 mmHg, JULES 0.84 cm�, MAC with mild MS
Cardiac catheterization 06/06/2024 single-vessel nonobstructive coronary artery disease, severe
Echo 10/09/2024: EF 65 to 70%, mild concentric LVH, number 26 mm [place] TAVR with no AR and peak/mean gradients 8/5 mmHg, no pericardial effusion
Echo 10/10/2024: EF 65 to 70%, mild concentric LVH, well-seated number 26 mm [place] TAVR with peak/mean gradients 18/10 mmHg, no AR, normal pericardium
Plan:
- patient s/p TAVR 10/09/24, discharged 10/10/24 presents back to [facility] due to fever, abd pain, and symptomatic bradycardia
- Status post Medtronic pacemaker placement 10/12/2024
- Chest x-ray without pneumothorax. Was noted to have tenderness to palpation and mild amount of crepitus at pocket site last evening and remains with tenderness today. Repeat chest x-ray demonstrates stable device placement and no evidence of
pneumothorax
- OP amiodarone has been on hold pre PPM. discussed with patient's sister, Klarissa via telephone regarding why amio was started. she states while patient was at [facility] in 06/2024 he had episode of tachycardia while in CT scan. she states before they
needed to shock him he was given IV med that reverted him back to normal rhythm. She believes it was VT but will bring in paperwork from [facility]. she states he has not had episode since on amio. Continue amiodarone at this time
- in asensed vpaced rhythm on review of tele
- continue treatment of suspected PNA per primary service
- Continue aspirin, Plavix
- Blood pressure improved. continue norvasc
- Troponin 0.221, likely secondary to recent TAVR procedure. no CP
- ambulate, IS
- d/w nursing, CT surgery PA
Progress Note - Speech Correction Consultant
Subjective
Date of Service: October 14, 2024
Patient seen and examined. No acute events overnight. Patient resting comfortably in bed. Patient notes back pain and left shoulder pain. Mild tenderness to palpation at device site.
Objective
Labs:
10/14/24 03:48
10/14/24 03:48
Labs
Hgb 11.4 g/dL (13.0-18.0) L 10/14/24 03:48
Hct 33.2 % (39.0-52.0) L 10/14/24 03:48
Plt Count 215 10^3/uL (130-400) 10/14/24 03:48
PT 14.7 Sec (11.4-14.6) H 10/10/24 23:44
INR 1.09 10/10/24 23:44
APTT 31.6 Sec (23.4-35.0) 10/10/24 23:44
Sodium 139 mmol/L (135-145) 10/14/24 03:48
Potassium 4.1 mmol/L (3.5-5.1) 10/14/24 03:48
BUN 13 mg/dl (9-20) 10/14/24 03:48
Creatinine 0.7 mg/dL (0.7-1.3) 10/14/24 03:48
Glucose 125 mg/dl (70-99) H 10/14/24 03:48
Vital Signs and I&O:
Vital Signs
Temp Pulse Resp BP Pulse Ox
98.2 F 88 20 113/73 99
10/14/24 08:16 10/14/24 07:03 10/14/24 08:16 10/14/24 03:10 10/14/24 08:16
Vital Signs
Temp Pulse Resp BP Pulse Ox
98.2 F 88 20 113/73 99
10/14/24 08:16 10/14/24 07:03 10/14/24 08:16 10/14/24 03:10 10/14/24 08:16
Intake & Output
10/12/24 10/13/24 10/14/24 10/15/24
06:59 06:59 06:59 06:59
Intake Total 720 / 720 350 / 350
Output Total 2049 600 / 600 1150 / 1150
Balance -2049 -2049 120 / 120 -800 / -800
Physical Exam
Physical Exam
GEN: No distress, awake, alert, oriented x3
HEENT: supple, anicteric, mmm, EOMI
LUNGS: CTA bilaterally, no wheezes/rales
CV: Reg, S1/S2, 1/6 syst LSB
ABD: soft, BS+, NT/ND
EXT: No cyanosis, clubbing, edema
NEURO: Gross non-focal
SKIN: Warm, pink, dry. No rash. Left chest site with marked tenderness to palpation. Mild swelling without fluctuance under Aquacel dressing, however no clear crepitus. Demarcated area without edema, erythema. No firm areas noted. No
significant bruising.
Telemetry shows a sensed V paced
[2024-10-14] MEDS: ROXICODONE 5 MG PO ×2 (13:16→22:44)
[2024-10-14] MEDS: NOVOLOG FLEXPEN-LOW RESISTANCE 1 UNITS SC (13:16)
[2024-10-14 13:17] LABS: Glucose - Point of Care 175 mg/dl (70-99)
[2024-10-14] MEDS: STERILE WATER FOR INJECTION 10 ML IV (13:17)
[2024-10-14] MEDS: ROCEPHIN 1000 MG IV (13:17)
--- NOTE | 2024-10-14 16:41 | PTCARENOTE ---
10/14/24 Received patient from previous shift in bed. Pt AAO x3, VSS, afebrile. Pt on R/A @97%. L CW pacer site still sore and swollen, but soft. Pt is V-paced. Pt assist x1 w/walker getting out of bed to chair. Pt with hand tremors R>L. Pt denies any
chest pain, shortness of breath, palpitations. Pt with multiple loose soft BM's this AM.
[2024-10-14 17:30] LABS: Glucose - Point of Care 209 mg/dl (70-99)
[2024-10-14] MEDS: PLAVIX 75 MG PO (17:41)
[2024-10-14] MEDS: LIPITOR 40 MG PO (17:41)
[2024-10-14] MEDS: NOVOLOG FLEXPEN-LOW RESISTANCE 2 UNITS SC (17:47)
[2024-10-14] MEDS: SINEMET CR 50/200 (EXTENDED RELEASE) 2 TABLET PO (21:01)
[2024-10-14] MEDS: SENOKOT PO (21:02)
[2024-10-14] MEDS: MYSOLINE 500 MG PO (21:02)
[2024-10-14 22:51] LABS: Glucose - Point of Care 135 mg/dl (70-99)
--- NOTE | 2024-10-14 23:55 | PTCARENOTE ---
Patient received at change of shift resting in the bed. Vpaced on the monitor. Oxygen saturation 97% on room air. Patient AOx3 but is forgetful at times. Bed alarm armed. Left anterior chest wall aquacell C/D/I, surrounding area swollen but soft,
tender to touch. PRN oxycodone given for chronic low back pain and incisional pain at PPM site. Plan of care discussed. Call shaw within reach. Care ongoing.
[2024-10-15] MEDS: ZANAFLEX 2 MG PO (02:15)
[2024-10-15 02:44] VITALS: BMI 24.6
[2024-10-15 02:47] VITALS: BP 135/83
[2024-10-15 02:49] VITALS: BP 144/86
[2024-10-15 03:47] LABS: Hematocrit 31.9 % (39.0-52.0); Hemoglobin 11.0 g/dL (13.0-18.0); Mean Corp Hgb Conc. 34.5 g/dL (33.0-37.0); Mean Corpuscular Volume 97.6 fL (80.0-94.0); Platelet Count 202 10^3/uL (130-400); Red Cell Dist. Width 14.3 % (11.5-14.5)
[2024-10-15 04:09] LABS: Blood Urea Nitrogen 15 mg/dl (9-20); Calcium 9.1 mg/dl (8.4-10.2); Carbon Dioxide 25 mmol/L (22-30); Chloride 106 mmol/L (98-107); Estimated Creatinine Clearance 81 ml/min; Glucose 139 mg/dl (70-99); Potassium 4.2 mmol/L (3.5-5.1); Sodium 137 mmol/L (135-145); eGFR > 60.00
[2024-10-15] MEDS: ROXICODONE 5 MG PO (05:00)
[2024-10-15] MEDS: SYNTHROID 75 MCG PO (05:00)
[2024-10-15 07:13] VITALS: BP 120/72
[2024-10-15] MEDS: PULMICORT 0.5 MG INH (08:06)
[2024-10-15] MEDS: VENTOLIN NEBULES 2.5 MG INH ×2 (08:06→11:20)
[2024-10-15] MEDS: NOVOLOG FLEXPEN-LOW RESISTANCE SC ×2 (08:14→12:44)
[2024-10-15 08:15] LABS: Glucose - Point of Care 143 mg/dl (70-99)
[2024-10-15] MEDS: COLACE PO (08:15)
[2024-10-15] MEDS: MIRALAX PO (08:15)
[2024-10-15] MEDS: KEPPRA 750 MG PO (08:16)
[2024-10-15] MEDS: PACERONE 200 MG PO (08:16)
[2024-10-15] MEDS: LIDOCAINE 4% PATCH 1 PATCH TOPICAL (08:16)
[2024-10-15] MEDS: DEPAKOTE (12 HR RELEASE) 1000 MG PO (08:16)
[2024-10-15] MEDS: MAGNESIUM OXIDE 500 MG PO (08:16)
[2024-10-15] MEDS: NORVASC 2.5 MG PO (08:16)
[2024-10-15] MEDS: LOW STRENGTH ASPIRIN 81 MG PO (08:16)
[2024-10-15] MEDS: PROTONIX 40 MG PO (08:16)
[2024-10-15] MEDS: VIBRAMYCIN 100 MG PO (08:16)
[2024-10-15] MEDS: DESENEX/MITRAZOL/ZEASORB 1 APPLIC TOPICAL (08:17)
[2024-10-15] MEDS: LASIX 20 MG PO (08:26)
--- NOTE | 2024-10-15 09:46 | W.PN.HOSP.TC ---
Today's Communication/Plan
-
Discharge planning
Assessment / Plan
Assessment / Plan
Gen-awake but not alert, NAD.
HEENT-NC, AT, anicteric, clear oral mm
Neck-supple
CV-reg, no M, +S1/S2
Lungs-clear B/L
Abd-soft, NT, ND
Ext-no edema
Musculoskeletal-no cyanosis, clubbing
Skin-warm and dry
Neuro-grossly non-focal
Psych-calm, cooperative
Right lower lobe pneumonia: Differential diagnosis of community-acquired pneumonia versus aspiration pneumonia.
Currently afebrile and on room air
CT scan of the chest confirms pneumonia, chest x-ray 10/13 shows resolution of infiltrate.
Day 5 of antibiotics. Will discontinue after today.
Obtained Legionella, and strep which are all negative
Blood cultures negative.
High degree AV block:
Continue telemetry
Status post pacemaker on 10/12
Cardiology repeated chest x-ray yesterday and no acute chest pathology.
Tenderness on left pacemaker site-will defer to cardiology for further evaluation.
Acute on chronic back pain:
Add oxycodone as needed-Per family he has been on low dose of this before for chronic pain
Elevated troponin:
Elevated troponin due to non-ischemic myocardial injury in the setting of recent TAVR and pneumonia
Severe aortic stenosis:
Status post TAVR on 10/09:
Constipation:
Bowel regimen
COPD:
Continue inhalers as needed
On Pulmicort inhalers twice daily
Consider steroids if worsening but hold off for now
Hypothyroidism:
On levothyroxine 75 mcg p.o. daily
TSH high normal free T4--> repeat after acute illness in 6 weeks
Parkinson's:
Continue Sinemet 3 tablets 3 times daily (25-100) and Sinemet CR 2 tablets nightly (50-200)
Seizure disorder:
Continue Depakote 1000 mg 3 times daily and Keppra 750 mg twice a day
Chronic HFpEF:
On oral diuretic, Lasix 20 mg daily
CVA/TIA:
Continue dual antiplatelet and statin
Essential hypertension -stable.
Restarted Norvasc
Added IV hydralazine as needed
Hyperlipidemia:
On atorvastatin 40 mg nightly
DM2 without hyperglycemia -he takes Lantus 14 units daily and lispro sliding scale at home.
In the hospital he is on Lantus 8 units daily, low resistance aspart scale.
Glucose 139 this morning, 135 last night.
History of SVT versus VT:
Resumed amiodarone and cardiology requesting more records
Other medical problems:
ROS
Subdural hematoma with craniotomy in the past
Peripheral vascular disease
History of toxic metabolic encephalopathy and hypertensive encephalopathy in the past
History of depression/bipolar
History of TBI
DVT prophylaxis:
SCDs
CODE STATUS:
Full code
Dispo -medically stable for discharge to SNF if okay with cardiology.
Patient normally resides in [facility] living but came to our hospital from [facility].
Anticipated Discharge: Within 24 hours
Subjective/Interval History
-
Date of Service: October 15, 2024
Patient seen and examined. No complaints. Sleepy this morning.
Objective Data
-
Labs:
Laboratory Results
10/15/24
02:56
WBC 6.0
Hgb 11.0 L
Hct 31.9 L
Plt Count 202
Sodium 137
Potassium 4.2
Chloride 106
Carbon Dioxide 25
BUN 15
Creatinine 0.8
Glucose 139 H
Calcium 9.1
Vital Signs:
Vital Signs
Temp Pulse Resp BP Pulse Ox
98.8 F 77 16 120/72 97
10/15/24 07:11 10/15/24 08:07 10/15/24 08:07 10/15/24 07:13 10/15/24 07:13
I&O
10/14/24 10/15/24 10/16/24
06:59 06:59 06:59
Intake Total 350 / 350 480 / 480
Output Total 1150 / 1150 325 / 325
Balance -800 / -800 155 / 155
Review of Systems
-
History Source: Patient
All other systems: Reviewed and negative
[2024-10-15] MEDS: LANTUS 0.08 UNITS SC (09:51)
[2024-10-15] MEDS: SINEMET 25-100 3 TABLET PO (09:51)
--- NOTE | 2024-10-15 10:23 | W.PN.CARDCBS ---
Addendum entered and electronically signed by Zulema Luna DO 10/15/24 13:40:
I saw and examined the patient.
The Cheese Cook's note was reviewed and I agree with the note.
Comment: Patient was seen and examined. No new complaints. Poor historian; no events overnight
General: Awake and alert. No specific complaints. No acute distress.
Heart: Regular, positive S1/S2, no murmur. Pacemaker site with mild ecchymosis and dressing. No crepitus appreciated around device site
Lungs: Overall poor effort but no wheezes rhonchi's or rails
Abd: Positive BS, NT/ND, neg rebound/rigidity/guarding
Ext: No edema
Plan:
-Patient had TAVR 10/09/24, discharged to longterm 10/10/24. Presented back to [facility] due to fever, abd pain, and symptomatic bradycardia 10/10/24.
-Patient treated for RLL PNA that was thought to be possibly CAP vs aspiration. Antibiotics completed on 10/15/2024. Legionella and strep cultures were negative. Blood cultures also negative.
-s/p Medtronic DC PPM placed on 10/12/2024 for evidence of symptomatic high-grade AV block.
-CXR was negative for PTX x 2 despite evidence of mild crepitus at pocket site which overall appears markedly improved by my inspection on 10/15/2024. Previous black demarcation placed by nursing also indicates a more objective improvement.
-Patient with h/o VT and that is why he is chronically on amiodarone, this was held leading up to PPM, but has since been restarted at his usual outpatient dose of 200 mg daily. QTc 537 ms in the setting of paced rhythm on ECG reviewed by me from
10/13/24
-Outpatient doses of aspirin and Plavix have been continued following recent TAVR plus there was the complication involving plaque disruption at access site that required balloon angioplasty of the right AUDIENCE DEVELOPMENT MANAGER on 10/09/2024
-Patient is stable for transfer back to [facility] on 10/15/2024 prior to returning to his previous assisted living arrangement at [facility].
Original Note:
Today's Communication / Plan
-
Stable for transfer back to SNF today, he'll eventually go back to his assisted living facility
Cont aspirin, Plavix, amiodarone, Lasix PO and amlodipine
Impression / Plan
-
PCP: Dr. Maksim Coleman
Primary Project Production Engineer: Dr. Lopes of [facility]
Assessment:
Admitted with high grade heart block and fever 10/10/24
Reported fever with Tmax 101 degrees Fahrenheit at longterm prior to admission
Abdominal pain
Intermittent high grade AV block, symptomatic
s/p Medtronic DC pacemaker placement 10/12/2024
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
procedure complicated by plaque disruption noted at access site extending inferiorly s/p Balloon angioplasty of R AUDIENCE DEVELOPMENT MANAGER x 2 (5min each), 10/09/24
Mild mitral stenosis with severe MAC by echo 05/11/24
Non-obstructive coronary artery disease by cath 06/06/24
h/o VT 06/2024 at [facility]
per sister, started on amiodarone without known recurrence
Chronic RBBB
Peripheral vascular disease
History of CVA/TIA
Subdural hematoma s/p fall
Parkinson's disease
Non-specific convulsions
Hard of hearing B/L (no hearing aides)
Borderline personality disorder
Depression/anxiety
COPD
Hypertension
Hyperlipidemia
DM2
Obstructive sleep apnea
Former tobacco
DDD/chronic back pain
History of pulmonary nodule
History of urinary incontinence/overactive bladder
Chronic anemia
Bilateral groin rash/intertrigo
Echo 05/11/2024: EF 60 to 65%, severe with peak/mean gradient 77/49 mmHg, JULES 0.84 cm�, MAC with mild MS
Cardiac catheterization 06/06/2024 single-vessel nonobstructive coronary artery disease, severe
Echo 10/09/2024: EF 65 to 70%, mild concentric LVH, number 26 mm [place] TAVR with no AR and peak/mean gradients 8/5 mmHg, no pericardial effusion
Echo 10/10/2024: EF 65 to 70%, mild concentric LVH, well-seated number 26 mm [place] TAVR with peak/mean gradients 18/10 mmHg, no AR, normal pericardium
Plan:
-Patient had TAVR 10/09/24, discharged to longterm 10/10/24. Presented back to [facility] due to fever, abd pain, and symptomatic bradycardia 10/10/24.
-Patient treated for RLL PNA that was thought to be possibly CAP vs aspiration. Antibiotics completed on 10/15/2024. Legionella and strep cultures were negative. Blood cultures also negative.
-From a cardiac standpoint patient had Medtronic DC PPM placed on 10/12/2024 for evidence of symptomatic high-grade AV block.
-CXR was negative for PTX x 2 despite evidence of mild crepitus at pocket site which overall appears markedly improved by my inspection on 10/15/2024. Previous black demarcation placed by nursing also indicates a more objective improvement.
-Patient with h/o VT and that is why he is chronically on amiodarone, this was held leading up to PPM, but has since been restarted at his usual outpatient dose of 200 mg daily. QTc 537 ms in the setting of paced rhythm on ECG reviewed by me from
10/13/24
-Outpatient doses of aspirin and Plavix have been continued following recent TAVR plus there was the complication involving plaque disruption at access site that required balloon angioplasty of the right AUDIENCE DEVELOPMENT MANAGER on 10/09/2024
-VS reviewed by me 425 and patient is normotensive.
-Outpatient dose of amlodipine 2.5 mg daily has been continued
-Outpatient dose of Lasix 20 mg PO daily has been continued. No documented history of CHF and EF preserved by echo
-Initial troponin 0.205 and then 0.221 and this is thought to be related to his recent TAVR procedure. No complaints of chest pain and no ischemic change on ECG. This is being treated as a nonischemic myocardial injury troponin elevation.
-Case reviewed with hospitalist attending and agree the patient is stable for transfer back to [facility] on 10/15/2024 prior to returning to his previous assisted living arrangement at [facility].
-Cardiology follow-up arranged.
Progress Note - Project Production Engineer
Subjective
Date of Service: October 15, 2024
No specific complaints
Objective
Labs:
10/15/24 02:56
10/15/24 02:56
Labs
Hgb 11.0 g/dL (13.0-18.0) L 10/15/24 02:56
Hct 31.9 % (39.0-52.0) L 10/15/24 02:56
Plt Count 202 10^3/uL (130-400) 10/15/24 02:56
PT 14.7 Sec (11.4-14.6) H 10/10/24 23:44
INR 1.09 10/10/24 23:44
APTT 31.6 Sec (23.4-35.0) 10/10/24 23:44
Sodium 137 mmol/L (135-145) 10/15/24 02:56
Potassium 4.2 mmol/L (3.5-5.1) 10/15/24 02:56
BUN 15 mg/dl (9-20) 10/15/24 02:56
Creatinine 0.8 mg/dL (0.7-1.3) 10/15/24 02:56
Glucose 139 mg/dl (70-99) H 10/15/24 02:56
Vital Signs and I&O:
Vital Signs
Temp Pulse Resp BP Pulse Ox
98.8 F 77 16 120/72 97
10/15/24 07:11 10/15/24 08:07 10/15/24 08:07 10/15/24 07:13 10/15/24 07:13
Vital Signs
Temp Pulse Resp BP Pulse Ox
98.8 F 77 16 120/72 97
10/15/24 07:11 10/15/24 08:07 10/15/24 08:07 10/15/24 07:13 10/15/24 07:13
Intake & Output
10/13/24 10/14/24 10/15/24 10/16/24
06:59 06:59 06:59 06:59
Intake Total 720 / 720 350 / 350 480 / 480
Output Total 600 / 600 1150 / 1150 325 / 325 200 / 200
Balance 120 / 120 -800 / -800 155 / 155 -200 / -200
Physical Exam
Physical Exam
GEN: NAD, awake and alert
HEENT: EOMI
LUNGS: RA. No audible wheeze
CV: AV paced on tele
[2024-10-15 11:41] LABS: Glucose - Point of Care 188 mg/dl (70-99)
--- NOTE | 2024-10-15 11:46 | CM ---
Chart reviewed. Patient lives AL at [facility], ambulates with a rollator and also has a SPC and wheelchair. Patient was discharged last hospitalization to the SNF. Confirmed bed is available today to return. Patient will need updated
PT/OT notes. Patient is a heavy 2 person assist. Patient will need ambulance transfer back to [facility]. Plan is for the patient to return to SNF at [facility]. CM to follow
--- NOTE | 2024-10-15 12:05 | W.DS.TRANS ---
DC Summary - Cap Sewer
-
Discharge Instructions:
Discharge Diagnosis/Procedures Pneumonia, Heart block, Pacemaker implant
Diet Diabetic, Carb Controlled,Low Cholesterol
Activity With assistance,As tolerated
Driving Restrictions No driving for 1 week
Bathing Restrictions OK to Shower
Instructions:
Stand-Alone Forms: DC Inst - Implanted Device
Changes to Home Medications: No
Discharge Medications:
DC Medications w/original date entered in [facility]
atorvastatin 40 mg tablet 40 mg PO QPM High Cholesterol 06/06/24
carbidopa 25 mg-levodopa 100 mg tablet 3 tab PO TID with meals 06/06/24
carbidopa ER 50 mg-levodopa 200 mg tablet,extended release 2 tab PO HS PARKINSONS 06/06/24
clopidogrel 75 mg tablet 75 mg PO QPM Blood Clot Prevention/Tx 06/06/24
divalproex 500 mg tablet,delayed release 1,000 mg PO TID Seizures 06/06/24
formoterol fumarate 20 mcg/2 mL solution for nebulization 2 ml inhalation BID COPD 06/06/24
insulin lispro 100 unit/mL subcutaneous pen 0 unit SC AC sliding scale 06/06/24
levothyroxine 75 mcg tablet 75 mcg PO DAILY Thyroid 06/06/24
magnesium hydroxide 400 mg/5 mL oral suspension (Milk of Magnesia) 30 ml PO DAILY PRN constipation ##0 06/06/24
magnesium oxide 400 mg (241.3 mg magnesium) tablet 400 mg PO BID Supplement 06/06/24
vrtgnjvt-iyi-ybmdi acid 0.4 mg-lycopene 300 mcg-lutein 250 mcg tablet (Cerovite Senior) 1 tab PO DAILY Supplement 06/06/24
pantoprazole 40 mg tablet,delayed release 40 mg PO DAILY Gastrointestinal Issue 06/06/24
primidone 250 mg tablet 500 mg PO HS Seizures 06/06/24
tizanidine 2 mg tablet 2 mg PO BID Muscle Spasms 06/06/24
acetaminophen 325 mg tablet 650 mg PO Q4H PRN pain/fever 07/27/24
amiodarone 200 mg tablet 200 mg PO DAILY Arrhythmia 07/27/24
revefenacin 175 mcg/3 mL solution for nebulization (Yupelri) 175 mcg inhalation DAILY COPD 07/27/24
sodium phosphates 19 gram-7 gram/118 mL enema (Fleet Enema) 118 ml SC PRN PRN if dulcolax ineffective 07/27/24
cholecalciferol (vitamin D3) 10 mcg (400 unit) tablet (Vitamin D3) 10 mcg PO DAILY Supplement 08/09/24
docusate sodium 100 mg capsule 100 mg PO BID PRN CONSTIPATION 08/09/24
insulin glargine 100 unit/mL (3 mL) subcutaneous pen (Lantus Solostar U-100 Insulin) 14 unit SC DAILY Diabetes 08/09/24
acetaminophen 650 mg rectal suppository 650 mg SC Q4H PRN if unable to take PO 10/01/24
aluminum-mag hydroxide-simethicone 200 mg-200 mg-20 mg/5 mL oral susp 15 ml PO Q4H PRN upset stomach 10/01/24
amlodipine 2.5 mg tablet 2.5 mg PO DAILY Blood Pressure 10/01/24
arformoterol 15 mcg/2 mL solution for nebulization 2 ml inhalation BID Lung/Breathing Issues 10/01/24
benzonatate 100 mg capsule 100 mg PO Q8H PRN cough 10/01/24
bisacodyl 10 mg rectal suppository (Dulcolax (bisacodyl)) 10 mg SC DAILY PRN if MOM ineffective 10/01/24
budesonide 0.5 mg/2 mL suspension for nebulization 0.5 mg inhalation BID Lung/Breathing Issues 10/01/24
calcium carbonate 500 mg PO Q4H PRN acid stomach 10/01/24
dextromethorphan-guaifenesin 10 mg-100 mg/5 mL oral syrup 5 ml PO Q4H PRN cough 10/01/24
furosemide 20 mg tablet 20 mg PO DAILY Fluid Retention/Swelling 10/01/24
guaifenesin 100 mg/5 mL oral liquid 200 mg PO Q4H PRN cough 10/01/24
levetiracetam 750 mg tablet 750 mg PO BID Seizures 10/01/24
loperamide 2 mg capsule (Imodium A-D) 2 mg PO Q4H PRN loose stools 10/01/24
ondansetron 4 mg disintegrating tablet 4 mg PO Q8H PRN N/V 10/01/24
polyethylene glycol 3350 17 gram oral powder packet (Miralax) 17 g PO DAILY PRN constipation 10/01/24
tizanidine 2 mg tablet 6 mg PO HS Muscle Spasms 10/01/24
aspirin 81 mg chewable tablet 81 mg PO DAILY #0 tabs 10/10/24
Home Medication Changes
Pending Results: No
[2024-10-15 12:06] VITALS: BP 106/75; BP 92/59; BP 93/76; PULSE 81; PULSE 87
[2024-10-15] MEDS: ROCEPHIN 1000 MG IV (13:05)
--- NOTE | 2024-10-15 14:40 | PTCARENOTE ---
Report called to Zaki RN at [facility] and telemetry removed. Ambulance transfer arrived, report given, all belongings sent with patient
== END 2024-10-15 15:04 | DRG 242 ==
LOC: IVU 03:44
PROVIDERS: Hospitalist; Internal Medicine Cardiovascular Disease; ADMITTING PHYSICIAN Hospitalist; ATTENDING PHYSICIAN Hospitalist; EMERGENCY PHYSICIAN Emergency Medicine; FAMILY PHYSICIAN Family Medicine; OTHER PHYSICIAN Internal Medicine Interventional Cardiology; OTHER PHYSICIAN Thoracic Surgery (Cardiothoracic Vascular Surgery)
PROC: 0JH606Z Insertion of Pacemaker, Dual Chamber into Chest Subcutaneous Tissue and Fascia, Open Approach (ICD-10-PCS; 2024-10-12)
PROC: 02HK3JZ Insertion of Pacemaker Lead into Right Ventricle, Percutaneous Approach (ICD-10-PCS; 2024-10-12)
PROC: 02H63JZ Insertion of Pacemaker Lead into Right Atrium, Percutaneous Approach (ICD-10-PCS; 2024-10-12)
DX: I44.2 Atrioventricular block, complete (principal); J18.9 Pneumonia, unspecified organism; I5A Non-ischemic myocardial injury (non-traumatic); I50.32 Chronic diastolic (congestive) heart failure; J44.0 Chronic obstructive pulmonary disease with (acute) lower respiratory infection; G40.909 Epilepsy, unspecified, not intractable, without status epilepticus; R50.82 Postprocedural fever; G20.A1 Parkinson's disease without dyskinesia, without mention of fluctuations; E78.00 Pure hypercholesterolemia, unspecified; E11.51 Type 2 diabetes mellitus with diabetic peripheral angiopathy without gangrene; Z86.73 Personal history of transient ischemic attack (TIA), and cerebral infarction without residual deficits; F60.3 Borderline personality disorder; F32.A Depression, unspecified; F41.9 Anxiety disorder, unspecified; G47.33 Obstructive sleep apnea (adult) (pediatric); Z87.891 Personal history of nicotine dependence; I11.0 Hypertensive heart disease with heart failure; G89.29 Other chronic pain; D64.9 Anemia, unspecified; I25.10 Atherosclerotic heart disease of native coronary artery without angina pectoris; E03.9 Hypothyroidism, unspecified; K21.9 Gastro-esophageal reflux disease without esophagitis; Z88.8 Allergy status to other drugs, medicaments and biological substances; K59.00 Constipation, unspecified; Z95.2 Presence of prosthetic heart valve; Z79.4 Long term (current) use of insulin; Z79.51 Long term (current) use of inhaled steroids; Z79.82 Long term (current) use of aspirin; Z79.890 Hormone replacement therapy; Z79.899 Other long term (current) drug therapy; Z11.52 Encounter for screening for COVID-19
CPT/HCPCS: 33208; 71045; 71046; 71250; 74177; 80048; 80053; 81003; 81015; 82248; 82962; 83605; 83735; 83880; 84439; 84443; 84484; 85025; 85027; 85610; 85730; 87040; 87070; 87449; 87502; 87811; 87899; 93005; 94640; 96374; 96375; 97163; 97167; 97530; 97535; 99285; C1785; C1898; Q9967